=== PATIENT | female | born 1955 | race Hispanic/Latino ===

== ENCOUNTER 2018-10-20 21:11 | Inpatient (IN) | payer MEDICAID, MEDICARE, OTHER ==
[2018-10-20 21:38] LABS: BASO # 0.1 K/uL (0.0-0.2); BASO % 0.9 % (0.0-2.0); EOS % 0.3 % (0.0-4.0); HEMOGLOBIN 8.7 g/dL (11.0-16.0); LYMPH % 10.7 % (20.0-40.0); MEAN CELL VOLUME 81.3 fL (81.0-99.0); MEAN CORPUSCULAR HEMOGLOBIN 27.3 pg (27.0-31.0); MEAN CORPUSCULAR HGB CONC 33.6 g/dL (33.0-37.0); MEAN PLATELET VOLUME 6.5 fL (7.2-11.7); MONO # 1.1 K/uL (0.0-0.8); MONO % 10.9 % (0.0-10.0); NEUT # 7.5 K/uL (1.8-7.0); NEUT % 77.2 % (50.0-75.0); RBC 3.19 Mil/uL (3.80-5.20); RED CELL DISTRIBUTION WIDTH 17.4 % (11.5-14.5); WHITE BLOOD COUNT 9.7 K/uL (4.8-10.8)
[2018-10-20 21:51] LABS: ALB/GLOB RATIO 0.8 (1.0-2.1); ALBUMIN 3.6 g/dL (3.5-5.0); BLOOD UREA NITROGEN 13 mg/dL (7-17); CALCIUM 8.7 mg/dl (8.6-10.4); GFR NON-AFRICAN AMERICAN > 60
[2018-10-20 21:53] LABS: ALT/SGPT < 6 U/L (9-52); AST/SGOT 22 U/L (14-36)
[2018-10-20] MEDS ORDERED: Sodium Chloride 0.9% 1,000 ML IV SCH (22:15)
--- NOTE | 2018-10-20 23:55 | C.PDOC ---
History Of Present Illness 63 year old female is sent to the ED from her Longterm for evaluation. As per Longterm patient today was noted to have low sodium and chloride after having some blood drawn today. Patient currently states she feels thirsty. P atient denies fever, chills, nausea, vomit, diarrhea, rash, CP, SOB, weakness, numbness. Time Seen by Provider: 10/20/18 21:12 Chief Complaint (Nursing): Abnormal Labs History Per: Patient, Other History/Exam Limitations: no limitations Onset/Duration Of Symptoms: Hrs Current Symptoms Are (Timing): Still Present Recent travel outside of the [place]: No Additional History Per: Patient, Longterm Past Medical History Reviewed: Historical Data, Nursing Documentation, Vital Signs Vital Signs: Last Vital Signs Temp 98.3 F 10/20/18 21:19 Pulse 98 H 10/20/18 22:35 Resp 18 10/20/18 22:35 BP 119/61 10/20/18 22:35 Pulse Ox 99 10/20/18 22:35 - Medical History PMH: Anemia, HTN, Parkinson's Disease Surgical History: No Surg Hx Family History: States: Unknown Family Hx - Social History Hx Alcohol Use: Yes Hx Substance Use: No Review Of Systems Constitutional: Negative for: Fever, Chills Cardiovascular: Negative for: Chest Pain, Palpitations Respiratory: Negative for: Cough, Shortness of Breath Gastrointestinal: Negative for: Nausea, Vomiting, Abdominal Pain Skin: Negative for: Rash Neurological: Negative for: Weakness, Numbness Physical Exam - Physical Exam Appears: Non-toxic, No Acute Distress Skin: Normal Color, Warm, Dry Head: Atraumatic, Normacephalic Eye(s): bilateral: Normal Inspection Oral Mucosa: Dry (slightly dry) Neck: Normal ROM, Supple Chest: Symmetrical Cardiovascular: Rhythm Regular Respiratory: Normal Breath Sounds, No Rales, No Rhonchi, No Wheezing Gastrointestinal/Abdominal: Soft, No Tenderness, No Guarding, No Rebound Extremity: Normal ROM, No Tenderness, No Swelling Neurological/Psych: Oriented x3, Normal Speech, Normal Cognition Gait: Steady ED Course And Treatment - Laboratory Results Result Diagrams: 10/20/18 21:36 10/20/18 21:36 Lab Results: Total Bilirubin 0.4 mg/dL (0.2-1.3) 10/20/18 21:36 AST 22 U/L (14-36) 10/20/18 21:36 ALT < 6 U/L (9-52) L D 10/20/18 21:36 Alkaline Phosphatase 150 U/L (38-126) H D 10/20/18 21:36 Total Protein 7.9 g/dL (6.3-8.3) 10/20/18 21:36 Albumin 3.6 g/dL (3.5-5.0) 10/20/18 21:36 Globulin 4.4 gm/dL (2.2-3.9) H 10/20/18 21:36 Albumin/Globulin Ratio 0.8 (1.0-2.1) L 10/20/18 21:36 O2 Sat by Pulse Oximetry: 99 (ON RA) Pulse Ox Interpretation: Normal Medical Decision Making Medical Decision Making: Plan: * Labs * urine culture * IV fluids Disposition - Disposition Disposition: HOSPITALIZED Disposition Time: 22:10 Condition: STABLE - Clinical Impression Clinical Impression: Hyponatremia, Hypochloremia, Dehydration - Scribe Statement The provider has reviewed the documentation as recorded by the Scribe Ivan Covington All medical record entries made by the Scribe were at my direction and personally dictated by me. I have reviewed the chart and agree that the record accurately reflects my personal performance of the history, physical exam, medical decision making, and the department course for this patient. I have also personally directed, reviewed, and agree with the discharge instructions and disposition.
[2018-10-21] MEDS ORDERED: Magnesium Sulfate 1 gm in D5W 1 GM/100 ML BAG IVPB ONE ×2 (00:32→01:00)
[2018-10-21] MEDS: Sodium Chloride 0.9% 1,000 ML IV SCH ×3 (01:04→16:11)
[2018-10-21] MEDS ORDERED: Oxycodone/Acetaminophen 5/325 mg Tab PO PRN (01:04)
--- NOTE | 2018-10-21 01:24 | CP.PCM.HP ---
<Brigida Bennett - Last Filed: 10/21/18 01:20> History of Present Illness - History of Present Illness History of Present Illness: PGY-[address] Chicas's service CC: abnormal labs HPI: Patient is a 63 yo female w/ PMH of Parkinson's disease, mood disorder, DM2, HLD, and HTN sent from [facility] for hyponatremia on labs. Patient is in rehab for s/p knee fracture occuring on [facility] of last year. Patient offers no acute complaints and denies headaches, confusion, n/v. Patient states that her knee gets sore at time but is able to ambulate on flat floors and a couple of steps with her assistive device. Patient states that she has not had a colonosco py but has had her regular ORTHOPEDIC NURSE screening. Denies fevers, chills, chest pain, sob, n/v, constipation or diarrhea and dysuria. PMH- Parkinson's disease, mood disorder, DM2, HLD, and HTN PSH- Hysterectomy, knee fracture repair FH- Denies Allergies- Denies Meds- See MAR (same one as on orders) Social- Denies etoh, drug, and tobacco use; Retired; Lives at home with and daughter Code- Full code PMD- Dr. Ugarte Present on Admission - Present on Admission Any Indicators Present on Admission: Yes History of DVT/PE: No Decubitus Ulcer Present: Yes Decubitus Ulcer Location: sacrum Decubitus Ulcer Stage: II Review of Systems - Review of Systems Review of Systems: 12 point ROS obtained and noted as in HPI Past Patient History - Past Social History Smoking Status: Never Smoked - CARDIAC Hx Hypertension: Yes - NEUROLOGICAL Hx Parkinson's Disease: Yes - ENDOCRINE/METABOLIC Hx Endocrine Disorders: Yes Hx Diabetes Mellitus Type 2: Yes - HEMATOLOGICAL/ONCOLOGICAL Hx Anemia: Yes - PSYCHIATRIC Hx Substance Use: No - SURGICAL HISTORY Hx Surgeries: Yes Hx Orthopedic Surgery: Yes (right patella fracture) Meds Allergies/Adverse Reactions: Allergies Allergy/AdvReac Type Severity Reaction Status Date / Time No Known Allergies Allergy Unverified 10/20/18 21:30 Physical Exam - Constitutional Appears: Non-toxic, No Acute Distress - Head Exam Head Exam: NORMAL INSPECTION, NORMOCEPHALIC - Eye Exam Eye Exam: EOMI, Normal appearance. absent: Nystagmus, Scleral icterus - ENT Exam ENT Exam: Mucous Membranes Dry - Respiratory Exam Respiratory Exam: Clear to Auscultation Bilateral, NORMAL BREATHING PATTERN. absent: Rales, Rhonchi, Wheezes - Cardiovascular Exam Cardiovascular Exam: REGULAR RHYTHM, +S1, +S2. absent: Tachycardia - GI/Abdominal Exam GI & Abdominal Exam: Normal Bowel Sounds, Soft. absent: Diminished Bowel Sounds, Distended, Firm, Guarding, Tenderness - Extremities Exam Extremities exam: Positive for: normal inspection. Negative for: calf tenderness, pedal edema Additional comments: on left knee there is immobilzier with scar on medial part of knee clean incision, no erythema, blood or drainaged noted - Neurological Exam Neurological exam: Alert, Oriented x3 - Psychiatric Exam Psychiatric exam: Normal Affect, Normal Mood - Skin Skin Exam: Dry, Intact Results - Vital Signs Recent Vital Signs: Last Vital Signs Temp 98.3 F 10/20/18 21:19 Pulse 98 H 10/20/18 22:35 Resp 18 10/20/18 22:35 BP 119/61 10/20/18 22:35 Pulse Ox 99 10/21/18 00:14 - Labs Result Diagrams: 10/20/18 21:36 10/20/18 21:36 Labs: Laboratory Results - last 24 hr 10/20/18 10/20/18 10/20/18 21:36 21:36 22:00 WBC 9.7 RBC 3.19 L Hgb 8.7 L D Hct 25.9 L MCV 81.3 D MCH 27.3 MCHC 33.6 RDW 17.4 H Plt Count 552 H D MPV 6.5 L Neut % (Auto) 77.2 H Lymph % (Auto) 10.7 L Emanuel % (Auto) 10.9 H Eos % (Auto) 0.3 Baso % (Auto) 0.9 Neut # (Auto) 7.5 H Lymph # (Auto) 1.0 Emanuel # (Auto) 1.1 H Eos # (Auto) 0.0 Baso # (Auto) 0.1 Sodium 125 L Potassium 4.8 Chloride 87 L Carbon Dioxide 29 Anion Gap 14 BUN 13 Creatinine 0.4 L Est GFR ( Amer) > 60 Est GFR (Non-Af Amer) > 60 Random Glucose 228 H D Serum Osmolality Calcium 8.7 Phosphorus 3.2 Magnesium 1.4 L Total Bilirubin 0.4 AST 22 ALT < 6 L D Alkaline Phosphatase 150 H D Total Protein 7.9 Albumin 3.6 Globulin 4.4 H Albumin/Globulin Ratio 0.8 L TSH 3rd Generation Plasma Cortisol PM 13.6 10/20/18 10/20/18 22:00 22:32 WBC RBC Hgb Hct MCV MCH MCHC RDW Plt Count MPV Neut % (Auto) Lymph % (Auto) Emanuel % (Auto) Eos % (Auto) Baso % (Auto) Neut # (Auto) Lymph # (Auto) Emanuel # (Auto) Eos # (Auto) Baso # (Auto) Sodium Potassium Chloride Carbon Dioxide Anion Gap BUN Creatinine Est GFR ( Amer) Est GFR (Non-Af Amer) Random Glucose Serum Osmolality 272 Calcium Phosphorus Magnesium Total Bilirubin AST ALT Alkaline Phosphatase Total Protein Albumin Globulin Albumin/Globulin Ratio TSH 3rd Generation 1.53 Plasma Cortisol PM Assessment & Plan - Assessment and Plan (Free Text) Assessment: Patient is a 63 yo female w/ PMH Parkinson's disease, mood disorder, DM2, HLD, and HTN sent from [facility] for abnormal labs. Electrolyte Disturbances Hyponatremia- likely hypovolemic hyponatremia with component of hyperglycemia; urine studies pending; serum osm 277 NS @ 125mls/hr; Repeat CMP in AM; control sugars better likely 2/2 to diuretic drinks with fluid restriction at [facility] facility (coffee and juices) Hypomanesemia- 2 bags of Mag 1 gm in D5W; repeat mag in am Parkinson's disease Carbidopa/Levodopa 1 tab in am and .5 tab at 2pm Amantadine 100mg po bid Ropinirole 2mg po bid Oxycodone 1 tab po q12h prn Mood Disorder/BPD Depakote 125mg po bid Stage 2 sacral ulcer Clomitrazole cream Silver Sulfidazine DM2 Metformin 500mg po daily ISS sliding scale ACHS S/P knee fracture Tylenol PRN for pain knee immobilizer in place PT/OT HTN Amlodipine 10mg po daily HLD Rosuvastatin 5mg po HS PGY-1 Brigida Bennett Case D/W Dr. Chicas <Shahab Chicas P - Last Filed: 10/21/18 07:45> Results - Vital Signs Recent Vital Signs: Last Vital Signs Temp 98.3 F 10/20/18 23:45 Pulse 101 H 10/20/18 23:45 Resp 20 10/20/18 23:45 BP 110/67 10/20/18 23:45 Pulse Ox 99 10/21/18 00:14 - Labs Result Diagrams: 10/20/18 21:36 10/20/18 21:36 Labs: Laboratory Results - last 24 hr 10/20/18 10/20/18 10/20/18 21:36 21:36 22:00 WBC 9.7 RBC 3.19 L Hgb 8.7 L D Hct 25.9 L MCV 81.3 D MCH 27.3 MCHC 33.6 RDW 17.4 H Plt Count 552 H D MPV 6.5 L Neut % (Auto) 77.2 H Lymph % (Auto) 10.7 L Emanuel % (Auto) 10.9 H Eos % (Auto) 0.3 Baso % (Auto) 0.9 Neut # (Auto) 7.5 H Lymph # (Auto) 1.0 Emanuel # (Auto) 1.1 H Eos # (Auto) 0.0 Baso # (Auto) 0.1 Sodium 125 L Potassium 4.8 Chloride 87 L Carbon Dioxide 29 Anion Gap 14 BUN 13 Creatinine 0.4 L Est GFR ( Amer) > 60 Est GFR (Non-Af Amer) > 60 POC Glucose (mg/dL) Random Glucose 228 H D Serum Osmolality Calcium 8.7 Phosphorus 3.2 Magnesium 1.4 L Iron TIBC % Saturation Total Bilirubin 0.4 AST 22 ALT < 6 L D Alkaline Phosphatase 150 H D Total Protein 7.9 Albumin 3.6 Globulin 4.4 H Albumin/Globulin Ratio 0.8 L TSH 3rd Generation Plasma Cortisol PM 13.6 10/20/18 10/20/18 10/21/18 22:00 22:32 06:57 WBC RBC Hgb Hct MCV MCH MCHC RDW Plt Count MPV Neut % (Auto) Lymph % (Auto) Emanuel % (Auto) Eos % (Auto) Baso % (Auto) Neut # (Auto) Lymph # (Auto) Emanuel # (Auto) Eos # (Auto) Baso # (Auto) Sodium Potassium Chloride Carbon Dioxide Anion Gap BUN Creatinine Est GFR ( Amer) Est GFR (Non-Af Amer) POC Glucose (mg/dL) 126 H Random Glucose Serum Osmolality 272 Calcium Phosphorus Magnesium Iron TIBC % Saturation Total Bilirubin AST ALT Alkaline Phosphatase Total Protein Albumin Globulin Albumin/Globulin Ratio TSH 3rd Generation 1.53 Plasma Cortisol PM 10/21/18 07:02 WBC RBC Hgb Hct MCV MCH MCHC RDW Plt Count MPV Neut % (Auto) Lymph % (Auto) Emanuel % (Auto) Eos % (Auto) Baso % (Auto) Neut # (Auto) Lymph # (Auto) Emanuel # (Auto) Eos # (Auto) Baso # (Auto) Sodium Potassium Chloride Carbon Dioxide Anion Gap BUN Creatinine Est GFR ( Amer) Est GFR (Non-Af Amer) POC Glucose (mg/dL) Random Glucose Serum Osmolality Calcium Phosphorus Magnesium Iron 18 L TIBC 276 % Saturation 6 L Total Bilirubin AST ALT Alkaline Phosphatase Total Protein Albumin Globulin Albumin/Globulin Ratio TSH 3rd Generation Plasma Cortisol PM Attending/Attestation - Attestation I have personally seen and examined this patient.: Yes I have fully participated in the care of the patient.: Yes I have reviewed all pertinent clinical information: Yes Notes (Text): 10/21/18 07:41 * Clinically hypovolemic hyponatremia * Uncontrolled dm * Microcytic anemia with no history suggesting acute loss * H/o parkinson and essential tremors * H/o htn * Elevated globulin * Weight loss according to patient * left patellar fracture on immobilizer Plan ivf f/u serum sodium not allow rapid correction periodic urine sodium/osm as needed insulin sliding scale Stool for occult blood Iron tibc protein electrophoresis due to elevated globulin gi/dvt prophylaxis See orders for detail.
[2018-10-21] MEDS ORDERED: Glucagon Recombinant 1 mg Inj IM PRN (01:42)
[2018-10-21] MEDS ORDERED: Dextrose 50% SYRINGE Inj (50 ml) IV PRN (01:42)
[2018-10-21 07:20] LABS: IRON 18 ug/dL (37-170)
[2018-10-21 07:30] LABS: % IRON SATURATION 6 (20-55); TOTAL IRON BINDING CAPACITY 276 ug/dL (250-450)
[2018-10-21 08:15] LABS: BASO # 0.1 K/uL (0.0-0.2); BASO % 0.8 % (0.0-2.0); EOS # 0.1 K/uL (0.0-0.7); EOS % 0.8 % (0.0-4.0); HEMOGLOBIN 8.7 g/dL (11.0-16.0); LYMPH # 1.2 K/uL (1.0-4.3); MEAN CELL VOLUME 82.9 fL (81.0-99.0); MEAN CORPUSCULAR HEMOGLOBIN 27.9 pg (27.0-31.0); MEAN CORPUSCULAR HGB CONC 33.7 g/dL (33.0-37.0); MEAN PLATELET VOLUME 6.8 fL (7.2-11.7); MONO # 1.1 K/uL (0.0-0.8); MONO % 13.2 % (0.0-10.0); NEUT # 5.6 K/uL (1.8-7.0); NEUT % 70.2 % (50.0-75.0); RBC 3.11 Mil/uL (3.80-5.20); RED CELL DISTRIBUTION WIDTH 17.7 % (11.5-14.5)
[2018-10-21] MEDS: (Novolin R) Insulin Human Regular 100 units/ml vial SC SCH ×4 (08:15→22:30)
[2018-10-21 08:22] LABS: ALB/GLOB RATIO 0.8 (1.0-2.1); ALBUMIN 3.6 g/dL (3.5-5.0); ALT/SGPT < 6 U/L (9-52); AST/SGOT 26 U/L (14-36); BLOOD UREA NITROGEN 8 mg/dL (7-17); GFR NON-AFRICAN AMERICAN > 60
[2018-10-21] MEDS: Divalproex 125 mg Sprinkle Capsule PO SCH ×2 (10:26→18:40)
[2018-10-21] MEDS: Silver Sulfadiazine 1% Cream (20 gm) TOP SCH ×2 (11:04→18:40)
[2018-10-21] MEDS: Clotrimazole 1% Cream(30 gm) TOP SCH ×2 (11:04→18:40)
[2018-10-21] MEDS: LEVODOPA PO SCH (11:06)
[2018-10-21] MEDS: CARBIDOPA PO SCH (11:06)
[2018-10-21 14:35] LABS: BLOOD UREA NITROGEN 6 mg/dL (7-17); CALCIUM 8.9 mg/dl (8.6-10.4); GFR NON-AFRICAN AMERICAN > 60
[2018-10-21] MEDS ORDERED: Iohexol 240 (50 ml) PO ONE ×2 (18:00→18:30)
--- NOTE | 2018-10-21 18:15 | CP.PCM.PN ---
<Snehal Canales - Last Filed: 10/21/18 18:11> Subjective - Date & Time of Evaluation Date of Evaluation: 10/21/18 Time of Evaluation: 07:00 - Subjective Subjective: PGY2- Progress Note for Dr. Ugarte Patient seen and examined at bedside and in no acute distress. Patient at first is confused and does not know where she is, but then when told she is at [facility] she starts to remember her admission to the hospital. Patient admits to some soreness in her left leg, but otherwise has no complaints. Patient denies any headache, chest pain, abdominal pain, nausea, vomiting, constipation, or diarrhea. Patient's Rytary and Ropinorole are non formulary. Patient's came with her medications but did not have either of those prescriptions filled. Patient given a prescription to go get both filled. Patient was unable to get Rytary because it had been filled too recently. Patient and are unsure why they do not have the remaining pills left. Spoke with pharmacy and will give Carbidopa -Levodopa 50-200mg po daily as a replacement for the Rytary which is a similar dose 48.75- 195 Objective - Vital Signs/Intake and Output Vital Signs (last 24 hours): Temp Pulse Resp BP Pulse Ox 98.6 F 100 H 20 120/66 96 10/21/18 16:00 10/21/18 16:00 10/21/18 16:00 10/21/18 16:00 10/21/18 16:00 Intake and Output: 10/21/18 10/21/18 06:59 18:59 Intake Total 2467 Balance 2467 - Medications Medications: Current Medications Acetaminophen (Tylenol 325mg Tab) 650 mg PO Q4H PRN PRN Reason: Pain, Mild (1-3) Amantadine HCl (Amantadine 100 Mg Cap) 100 mg PO BID [facility] Last Admin: 10/21/18 11:03 Dose: 100 mg Amlodipine Besylate (Norvasc) 5 mg PO DAILY [facility] Last Admin: 10/21/18 10:25 Dose: 5 mg Carbidopa/Levodopa (Sinemet) 1 tab PO BID [facility] Last Admin: 10/21/18 10:24 Dose: 1 tab Carbidopa/Levodopa (Sinemet) 1 tab PO DAILY@1200 [facility] Last Admin: 10/21/18 14:14 Dose: 1 tab Carbidopa/Levodopa (Sinemet) 1 tab PO QNOON [facility] Last Admin: 10/21/18 11:06 Dose: 1 tab Clotrimazole (Lotrimin 1%) 0 gm TOP BID [facility] Last Admin: 10/21/18 11:04 Dose: 1 applic Dextrose (Dextrose 50% Inj) 0 ml IV STAT PRN; Protocol PRN Reason: Hypoglycemia Protocol Dextrose (Glutose 15) 0 gm PO ONCE PRN; Protocol PRN Reason: Hypoglycemia Protocol Divalproex Sodium (Depakote Sprinkles) 125 mg PO BID [facility] Last Admin: 10/21/18 10:26 Dose: 125 mg Glucagon (Glucagen Diagnostic Kit) 0 mg IM STAT PRN; Protocol PRN Reason: Hypoglycemia Protocol Heparin Sodium (Porcine) (Heparin) 5,000 units SC Q12 [facility] Last Admin: 10/21/18 10:26 Dose: 5,000 units Home Med (Carbidopa/Levodopa [Rytary Er 48.75 Mg-195 Mg Cap]) 1 each PO DAILY [facility] Home Med (Patient's Own Medication) 1 tab PO BID [facility] Sodium Chloride (Sodium Chloride 0.9%) 1,000 mls @ 125 mls/hr IV .Q8H [facility] Last Admin: 10/21/18 09:48 Dose: Not Given Dextrose (Dextrose 5% In Water 1000 Ml) 1,000 mls @ 0 mls/hr IV .Q0M PRN; Protocol PRN Reason: Hypoglycemia Protocol Insulin Human Regular (Novolin R) 0 unit SC ACHS [facility]; Protocol Last Admin: 10/21/18 16:56 Dose: Not Given Metformin HCl (Glucophage) 500 mg PO DAILY [facility] Last Admin: 10/21/18 10:26 Dose: 500 mg Oxycodone/Acetaminophen (Percocet 5/325 Mg Tab) 1 tab PO Q12H PRN PRN Reason: Pain, moderate (4-7) Stop: 10/24/18 01:05 Rosuvastatin Calcium (Crestor) 5 mg PO HS [facility] Silver Sulfadiazine (Silvadene 1% 20 Gm) 0 ea TOP BID [facility] Last Admin: 10/21/18 11:04 Dose: 1 applic - Labs Labs: 10/21/18 08:11 10/21/18 14:13 - Additional Findings Additional findings: - Constitutional Appears: Non-toxic, No Acute Distress - Head Exam Head Exam: NORMAL INSPECTION, NORMOCEPHALIC - Eye Exam Eye Exam: EOMI, Normal appearance. absent: Nystagmus, Scleral icterus - ENT Exam ENT Exam: Mucous Membranes Dry - Respiratory Exam Respiratory Exam: Clear to Auscultation Bilateral, NORMAL BREATHING PATTERN. absent: Rales, Rhonchi, Wheezes - Cardiovascular Exam Cardiovascular Exam: REGULAR RHYTHM, +S1, +S2. absent: Tachycardia - GI/Abdominal Exam GI & Abdominal Exam: Normal Bowel Sounds, Soft. absent: Diminished Bowel Sounds, Distended, Firm, Guarding, Tenderness - Extremities Exam Extremities exam: Positive for: normal inspection. Negative for: calf tenderness, pedal edema Additional comments: on left knee there is immobilzier with scar on medial part of knee clean incision, no erythema, blood or drainaged noted - Neurological Exam Neurological exam: Alert, Oriented x3, resting tremor b/l, tardive dyskinesia - Psychiatric Exam Psychiatric exam: Flat affect, Normal Mood - Skin Skin Exam: Dry, Intact Assessment and Plan - Assessment and Plan (Free Text) Assessment: Patient is a 63 yo female w/ PMH Parkinson's disease, mood disorder, DM2, HLD, and HTN sent from [facility] for abnormal labs. Electrolyte Disturbances Hyponatremia- likely hypovolemic hyponatremia with component of hyperglycemia; urine studies pending; serum osm 277 Repeat CMP in AM increased to 127 from 125 Hypomagnesemia- 2 bags of Mag 1 gm in D5W; repeat mag in am Nephro consulted, Dr. Nunez, help appreciated f/u urine osm, urine sodium with weight loss, r/o malignancy -- f/u CT head without contrast, CT chest, abd, pelvis with po and iv contrast meds: * NS @ 125mls/hr Parkinson's disease * Carbidopa/Levodopa 25-100mg 1 tab at 10am, 1.5 tabs at 12pm and 1 tab at 6 pm * Rytary NF, Carbidopa/Levodopa 50-200mg 1 tab po daily at 8am * Amantadine 100mg po bid * Ropinirole 2mg po daily Mood Disorder/BPD * Depakote 125mg po bid Stage 2 sacral ulcer * Clomitrazole cream * Silver Sulfidazine DM2 accuchecks achs * Metformin 500mg po daily * ISS sliding scale * Hypoglycemia protocol S/P L knee fracture * Tylenol PRN for pain * Oxycodone 1 tab po q12h prn knee immobilizer in place PT/OT HTN * Amlodipine 10mg po daily Prophylaxis SCDs no GI prophylaxis indicated Discussed with Dr. Ugarte <Jose Armando Ugarte - Last Filed: 10/22/18 22:33> Objective - Vital Signs/Intake and Output Vital Signs (last 24 hours): Temp Pulse Resp BP Pulse Ox 97.6 F 100 H 20 118/69 98 10/22/18 16:32 10/22/18 16:32 10/22/18 16:32 10/22/18 16:32 10/22/18 16:32 Intake and Output: 10/22/18 10/23/18 18:59 06:59 Intake Total 1760 Balance 1760 - Medications Medications: Current Medications Acetaminophen (Tylenol 325mg Tab) 650 mg PO Q4H PRN PRN Reason: Pain, Mild (1-3) Amantadine HCl (Amantadine 100 Mg Cap) 100 mg PO BID [facility] Last Admin: 10/22/18 18:27 Dose: 100 mg Amlodipine Besylate (Norvasc) 2.5 mg PO DAILY [facility] Last Admin: 10/22/18 10:27 Dose: 2.5 mg Carbidopa/Levodopa (Sinemet) 1 tab PO BID [facility] Last Admin: 10/22/18 18:27 Dose: 1 tab Carbidopa/Levodopa (Sinemet) 1 tab PO DAILY@1200 [facility] Last Admin: 10/22/18 14:14 Dose: 1 tab Carbidopa/Levodopa (Sinemet) 1 tab PO QNOON [facility] Last Admin: 10/22/18 12:03 Dose: 1 tab Carbidopa/Levodopa (Sinemet Cr) 2 tab PO 0800 [facility] Clotrimazole (Lotrimin 1%) 0 gm TOP BID [facility] Last Admin: 10/22/18 18:28 Dose: 1 applic Dextrose (Dextrose 50% Inj) 0 ml IV STAT PRN; Protocol PRN Reason: Hypoglycemia Protocol Dextrose (Glutose 15) 0 gm PO ONCE PRN; Protocol PRN Reason: Hypoglycemia Protocol Divalproex Sodium (Depakote Sprinkles) 125 mg PO BID [facility] Last Admin: 10/22/18 18:27 Dose: 125 mg Docusate Sodium (Colace) 100 mg PO TID [facility] Last Admin: 10/22/18 18:27 Dose: 100 mg Ferrous Sulfate (Feosol) 325 mg PO DAILY [facility] Glucagon (Glucagen Diagnostic Kit) 0 mg IM STAT PRN; Protocol PRN Reason: Hypoglycemia Protocol Heparin Sodium (Porcine) (Heparin) 5,000 units SC Q12 [facility] Last Admin: 10/22/18 10:27 Dose: 5,000 units Home Med (Patient's Own Medication) 1 tab PO DAILY [facility] Last Admin: 10/22/18 10:28 Dose: 1 tab Dextrose (Dextrose 5% In Water 1000 Ml) 1,000 mls @ 0 mls/hr IV .Q0M PRN; Protocol PRN Reason: Hypoglycemia Protocol Insulin Human Regular (Novolin R) 0 unit SC ACHS [facility]; Protocol Last Admin: 10/22/18 18:53 Dose: Not Given Metformin HCl (Glucophage) 500 mg PO DAILY [facility] Last Admin: 10/22/18 10:27 Dose: 500 mg Oxycodone/Acetaminophen (Percocet 5/325 Mg Tab) 1 tab PO Q12H PRN PRN Reason: Pain, moderate (4-7) Stop: 10/24/18 01:05 Pantoprazole Sodium (Protonix Ec Tab) 40 mg PO DAILY [facility] Permethrin (Nix Complete Lice Elimination Kit 1%) 59 ml TOP ONCE ONE Stop: 10/29/18 08:01 Rosuvastatin Calcium (Crestor) 5 mg PO HS [facility] Last Admin: 10/21/18 22:23 Dose: 5 mg Silver Sulfadiazine (Silvadene 1% 20 Gm) 0 ea TOP BID [facility] Last Admin: 10/22/18 18:28 Dose: 1 applic - Labs Labs: 10/22/18 07:19 10/22/18 22:05 Attending/Attestation - Attestation I have personally seen and examined this patient.: Yes I have fully participated in the care of the patient.: Yes I have reviewed all pertinent clinical information, including history, physical exam and plan: Yes Notes (Text): 10/22/18 22:32 This is a late entry. Care of this patient was gone over in detail with resident Dr. Canales. Jose Armando Ugarte D.O.
[2018-10-21 18:42] LABS: OSMOLALITY,URINE 230 mosm/kg (300-1000)
[2018-10-21] MEDS ORDERED: Tolvaptan 15 MG TAB PO ONE (18:59)
[2018-10-21] MEDS ORDERED: Iodixanol 320 mg/ml 150 ml Bottle IV ONE (19:24)
[2018-10-21 19:57] LABS: BLOOD UREA NITROGEN 5 mg/dL (7-17); CALCIUM 8.8 mg/dl (8.6-10.4); GFR NON-AFRICAN AMERICAN > 60
[2018-10-22] MEDS: Sodium Chloride 0.9% 1,000 ML IV SCH (01:21)
--- NOTE | 2018-10-22 06:31 | CP.PCM.HP ---
History of Present Illness - History of Present Illness History of Present Illness: 63 yo F w/ pmh of htn, dm, hyperlipidemia, and Parkinson's disease, sent to ED for evaluation of persistent hyponatremia; nephrology being consulted for the same; Patient reports falling and suffering knee fracture about 6 weeks ago; she subsequently had surgical repair and was discharged to rehab center; she reports that since the past few weeks she has been kept on PO fluid restriction due to the hyponatremia; she otherwise has been walking using a walker; has some pain in affected knee for which she is only using Tylenol (denies any NSAID use); reports fair appetite and has been able to consume the diet given to her; she denies any nausea/vomiting or diarrhea; patient does report ~80 lb weight loss over the past one and a half years but denies any fevers or night sweats; Past Patient History - Past Social History Smoking Status: Never Smoked - CARDIAC Hx Hypertension: Yes - NEUROLOGICAL Hx Parkinson's Disease: Yes - ENDOCRINE/METABOLIC Hx Endocrine Disorders: Yes Hx Diabetes Mellitus Type 2: Yes - HEMATOLOGICAL/ONCOLOGICAL Hx Anemia: Yes - MUSCULOSKELETAL/RHEUMATOLOGICAL Hx Falls: Yes - PSYCHIATRIC Hx Substance Use: No - SURGICAL HISTORY Hx Surgeries: Yes Hx Orthopedic Surgery: Yes (right patella fracture) - ANESTHESIA Hx Anesthesia Reactions: Yes Hx Malignant Hyperthermia: No Meds Allergies/Adverse Reactions: Allergies Allergy/AdvReac Type Severity Reaction Status Date / Time No Known Allergies Allergy Unverified 10/20/18 21:30 Results - Vital Signs Recent Vital Signs: Last Vital Signs Temp 97.9 F 10/22/18 00:00 Pulse 91 H 10/22/18 00:00 Resp 20 10/22/18 00:00 BP 110/68 10/22/18 00:00 Pulse Ox 96 10/22/18 00:00 - Labs Result Diagrams: 10/21/18 08:11 10/21/18 19:39 Labs: Laboratory Results - last 24 hr 10/21/18 10/21/18 10/21/18 06:57 07:02 07:02 WBC RBC Hgb Hct MCV MCH MCHC RDW Plt Count MPV Neut % (Auto) Lymph % (Auto) [place] % (Auto) Eos % (Auto) Baso % (Auto) Neut # (Auto) Lymph # (Auto) [place] # (Auto) Eos # (Auto) Baso # (Auto) Sodium 127 L Potassium 4.6 Chloride 90 L Carbon Dioxide 29 Anion Gap 13 BUN 8 Creatinine 0.4 L Est GFR ( Amer) > 60 Est GFR (Non-Af Amer) > 60 POC Glucose (mg/dL) 126 H Random Glucose 128 H D Calcium 9.0 Phosphorus 3.7 Magnesium 2.2 Iron 18 L TIBC 276 % Saturation 6 L Ferritin 511.0 Total Bilirubin 0.3 AST 26 ALT < 6 L Alkaline Phosphatase 174 H Total Protein 7.9 Total Protein (PEP) Albumin 3.6 Globulin 4.4 H Albumin/Globulin Ratio 0.8 L Urine Osmolality Ur Random Sodium 10/21/18 10/21/18 10/21/18 07:02 08:11 11:24 WBC 8.0 RBC 3.11 L Hgb 8.7 L Hct 25.7 L MCV 82.9 MCH 27.9 MCHC 33.7 RDW 17.7 H Plt Count 592 H MPV 6.8 L Neut % (Auto) 70.2 Lymph % (Auto) 15.0 L [place] % (Auto) 13.2 H Eos % (Auto) 0.8 Baso % (Auto) 0.8 Neut # (Auto) 5.6 Lymph # (Auto) 1.2 [place] # (Auto) 1.1 H Eos # (Auto) 0.1 Baso # (Auto) 0.1 Sodium Potassium Chloride Carbon Dioxide Anion Gap BUN Creatinine Est GFR ( Amer) Est GFR (Non-Af Amer) POC Glucose (mg/dL) 140 H Random Glucose Calcium Phosphorus Magnesium Iron TIBC % Saturation Ferritin Total Bilirubin AST ALT Alkaline Phosphatase Total Protein Total Protein (PEP) 7.2 Albumin Globulin Albumin/Globulin Ratio Urine Osmolality Ur Random Sodium 10/21/18 10/21/18 10/21/18 14:13 16:45 18:34 WBC RBC Hgb Hct MCV MCH MCHC RDW Plt Count MPV Neut % (Auto) Lymph % (Auto) [place] % (Auto) Eos % (Auto) Baso % (Auto) Neut # (Auto) Lymph # (Auto) [place] # (Auto) Eos # (Auto) Baso # (Auto) Sodium 126 L Potassium 4.2 Chloride 90 L Carbon Dioxide 29 Anion Gap 12 BUN 6 L Creatinine 0.4 L Est GFR ( Amer) > 60 Est GFR (Non-Af Amer) > 60 POC Glucose (mg/dL) 92 Random Glucose 101 D Calcium 8.9 Phosphorus Magnesium Iron TIBC % Saturation Ferritin Total Bilirubin AST ALT Alkaline Phosphatase Total Protein Total Protein (PEP) Albumin Globulin Albumin/Globulin Ratio Urine Osmolality 230 L Ur Random Sodium 56 10/21/18 10/21/18 10/22/18 19:39 21:12 05:01 WBC RBC Hgb Hct MCV MCH MCHC RDW Plt Count MPV Neut % (Auto) Lymph % (Auto) [place] % (Auto) Eos % (Auto) Baso % (Auto) Neut # (Auto) Lymph # (Auto) [place] # (Auto) Eos # (Auto) Baso # (Auto) Sodium 125 L Potassium 4.4 Chloride 87 L Carbon Dioxide 31 H Anion Gap 12 BUN 5 L Creatinine 0.4 L Est GFR ( Amer) > 60 Est GFR (Non-Af Amer) > 60 POC Glucose (mg/dL) 89 86 Random Glucose 103 Calcium 8.8 Phosphorus 3.6 Magnesium 1.6 Iron TIBC % Saturation Ferritin Total Bilirubin AST ALT Alkaline Phosphatase Total Protein Total Protein (PEP) Albumin Globulin Albumin/Globulin Ratio Urine Osmolality Ur Random Sodium
--- NOTE | 2018-10-22 06:34 | CP.PCM.CON ---
History of Present Illness - History of Present Illness History of Present Illness: 63 yo F w/ pmh of htn, dm, hyperlipidemia, and Parkinson's disease, sent to ED for evaluation of persistent hyponatremia; nephrology being consulted for the same; Patient reports falling and suffering knee fracture about 6 weeks ago; she subsequently had surgical repair and was discharged to rehab center; she reports that since the past few weeks she has been kept on PO fluid restriction due to the hyponatremia; she otherwise has been walking using a walker; has some pain in affected knee for which she is only using Tylenol (denies any NSAID use); reports fair appetite and has been able to consume the diet given to her; she denies any nausea/vomiting or diarrhea; patient does report ~80 lb weight loss over the past one and a half years but denies any fevers or night sweats; Review of Systems - Constitutional Constitutional: As Per HPI - EENT Nose/Mouth/Throat: absent: Dysphagia - Cardiovascular Cardiovascular: absent: Chest Pain, Palpitations - Respiratory Respiratory: absent: Dyspnea - Gastrointestinal Gastrointestinal: As Per HPI - Genitourinary Genitourinary: absent: Dysuria, Urinary Frequency - Musculoskeletal Musculoskeletal: As Per HPI. absent: Back Pain - Neurological Neurological: absent: Dizziness Additional comments: parkinsons disease on meds; Past Patient History - Past Medical History & Family History Past Medical History?: Yes Pertinent Family History: Father - lung Ca Mother - Breast Ca - Past Social History Smoking Status: Never Smoked - CARDIAC Hx Hypertension: Yes - NEUROLOGICAL Hx Parkinson's Disease: Yes - ENDOCRINE/METABOLIC Hx Endocrine Disorders: Yes Hx Diabetes Mellitus Type 2: Yes - HEMATOLOGICAL/ONCOLOGICAL Hx Anemia: Yes - MUSCULOSKELETAL/RHEUMATOLOGICAL Hx Falls: Yes - PSYCHIATRIC Hx Substance Use: No - SURGICAL HISTORY Hx Surgeries: Yes Hx Orthopedic Surgery: Yes (right patella fracture) - ANESTHESIA Hx Anesthesia Reactions: Yes Hx Malignant Hyperthermia: No Meds Allergies/Adverse Reactions: Allergies Allergy/AdvReac Type Severity Reaction Status Date / Time No Known Allergies Allergy Unverified 10/20/18 21:30 - Medications Medications: Current Medications Acetaminophen (Tylenol 325mg Tab) 650 mg PO Q4H PRN PRN Reason: Pain, Mild (1-3) Amantadine HCl (Amantadine 100 Mg Cap) 100 mg PO BID [facility] Last Admin: 10/21/18 18:39 Dose: 100 mg Amlodipine Besylate (Norvasc) 5 mg PO DAILY [facility] Last Admin: 10/21/18 10:25 Dose: 5 mg Carbidopa/Levodopa (Sinemet Cr) 1 tab PO 0800 [facility] Carbidopa/Levodopa (Sinemet) 1 tab PO BID [facility] Last Admin: 10/21/18 18:39 Dose: 1 tab Carbidopa/Levodopa (Sinemet) 1 tab PO DAILY@1200 [facility] Last Admin: 10/21/18 14:14 Dose: 1 tab Carbidopa/Levodopa (Sinemet) 1 tab PO QNOON [facility] Last Admin: 10/21/18 11:06 Dose: 1 tab Clotrimazole (Lotrimin 1%) 0 gm TOP BID [facility] Last Admin: 10/21/18 18:40 Dose: 1 applic Dextrose (Dextrose 50% Inj) 0 ml IV STAT PRN; Protocol PRN Reason: Hypoglycemia Protocol Dextrose (Glutose 15) 0 gm PO ONCE PRN; Protocol PRN Reason: Hypoglycemia Protocol Divalproex Sodium (Depakote Sprinkles) 125 mg PO BID [facility] Last Admin: 10/21/18 18:40 Dose: 125 mg Glucagon (Glucagen Diagnostic Kit) 0 mg IM STAT PRN; Protocol PRN Reason: Hypoglycemia Protocol Heparin Sodium (Porcine) (Heparin) 5,000 units SC Q12 [facility] Last Admin: 10/21/18 22:23 Dose: 5,000 units Home Med (Patient's Own Medication) 1 tab PO DAILY [facility] Dextrose (Dextrose 5% In Water 1000 Ml) 1,000 mls @ 0 mls/hr IV .Q0M PRN; Protocol PRN Reason: Hypoglycemia Protocol Insulin Human Regular (Novolin R) 0 unit SC ACHS [facility]; Protocol Last Admin: 10/21/18 22:30 Dose: Not Given Metformin HCl (Glucophage) 500 mg PO DAILY [facility] Last Admin: 10/21/18 10:26 Dose: 500 mg Oxycodone/Acetaminophen (Percocet 5/325 Mg Tab) 1 tab PO Q12H PRN PRN Reason: Pain, moderate (4-7) Stop: 10/24/18 01:05 Rosuvastatin Calcium (Crestor) 5 mg PO HS [facility] Last Admin: 10/21/18 22:23 Dose: 5 mg Silver Sulfadiazine (Silvadene 1% 20 Gm) 0 ea TOP BID [facility] Last Admin: 10/21/18 18:40 Dose: 1 applic Physical Exam - Constitutional Appears: Non-toxic, No Acute Distress, Cachectic - Eye Exam Eye Exam: Normal appearance. absent: Scleral icterus - ENT Exam ENT Exam: Mucous Membranes Moist - Neck Exam Neck exam: Negative for: Lymphadenopathy - Respiratory Exam Respiratory Exam: Clear to Auscultation Bilateral. absent: Respiratory Distress - Cardiovascular Exam Cardiovascular Exam: RRR, +S1, +S2 - GI/Abdominal Exam GI & Abdominal Exam: Soft. absent: Distended, Tenderness - Exam Exam: absent: Bladder Distension - Extremities Exam Additional comments: no leg edema; - Neurological Exam Neurological exam: Alert, Oriented x3 Additional comments: spontaneous eye movements - Psychiatric Exam Psychiatric exam: Normal Affect, Normal Mood - Skin Skin Exam: Normal Color, Warm Results - Vital Signs Recent Vital Signs: Last Vital Signs Temp 97.9 F 10/22/18 00:00 Pulse 91 H 10/22/18 00:00 Resp 20 10/22/18 00:00 BP 110/68 10/22/18 00:00 Pulse Ox 96 10/22/18 00:00 - Labs Result Diagrams: 10/21/18 08:11 10/21/18 19:39 Labs: Laboratory Results - last 24 hr 10/21/18 10/21/18 10/21/18 06:57 07:02 07:02 WBC RBC Hgb Hct MCV MCH MCHC RDW Plt Count MPV Neut % (Auto) Lymph % (Auto) [place] % (Auto) Eos % (Auto) Baso % (Auto) Neut # (Auto) Lymph # (Auto) [place] # (Auto) Eos # (Auto) Baso # (Auto) Sodium 127 L Potassium 4.6 Chloride 90 L Carbon Dioxide 29 Anion Gap 13 BUN 8 Creatinine 0.4 L Est GFR ( Amer) > 60 Est GFR (Non-Af Amer) > 60 POC Glucose (mg/dL) 126 H Random Glucose 128 H D Calcium 9.0 Phosphorus 3.7 Magnesium 2.2 Iron 18 L TIBC 276 % Saturation 6 L Ferritin 511.0 Total Bilirubin 0.3 AST 26 ALT < 6 L Alkaline Phosphatase 174 H Total Protein 7.9 Total Protein (PEP) Albumin 3.6 Globulin 4.4 H Albumin/Globulin Ratio 0.8 L Urine Osmolality Ur Random Sodium 10/21/18 10/21/18 10/21/18 07:02 08:11 11:24 WBC 8.0 RBC 3.11 L Hgb 8.7 L Hct 25.7 L MCV 82.9 MCH 27.9 MCHC 33.7 RDW 17.7 H Plt Count 592 H MPV 6.8 L Neut % (Auto) 70.2 Lymph % (Auto) 15.0 L [place] % (Auto) 13.2 H Eos % (Auto) 0.8 Baso % (Auto) 0.8 Neut # (Auto) 5.6 Lymph # (Auto) 1.2 [place] # (Auto) 1.1 H Eos # (Auto) 0.1 Baso # (Auto) 0.1 Sodium Potassium Chloride Carbon Dioxide Anion Gap BUN Creatinine Est GFR ( Amer) Est GFR (Non-Af Amer) POC Glucose (mg/dL) 140 H Random Glucose Calcium Phosphorus Magnesium Iron TIBC % Saturation Ferritin Total Bilirubin AST ALT Alkaline Phosphatase Total Protein Total Protein (PEP) 7.2 Albumin Globulin Albumin/Globulin Ratio Urine Osmolality Ur Random Sodium 10/21/18 10/21/18 10/21/18 14:13 16:45 18:34 WBC RBC Hgb Hct MCV MCH MCHC RDW Plt Count MPV Neut % (Auto) Lymph % (Auto) [place] % (Auto) Eos % (Auto) Baso % (Auto) Neut # (Auto) Lymph # (Auto) [place] # (Auto) Eos # (Auto) Baso # (Auto) Sodium 126 L Potassium 4.2 Chloride 90 L Carbon Dioxide 29 Anion Gap 12 BUN 6 L Creatinine 0.4 L Est GFR ( Amer) > 60 Est GFR (Non-Af Amer) > 60 POC Glucose (mg/dL) 92 Random Glucose 101 D Calcium 8.9 Phosphorus Magnesium Iron TIBC % Saturation Ferritin Total Bilirubin AST ALT Alkaline Phosphatase Total Protein Total Protein (PEP) Albumin Globulin Albumin/Globulin Ratio Urine Osmolality 230 L Ur Random Sodium 56 10/21/18 10/21/18 10/22/18 19:39 21:12 05:01 WBC RBC Hgb Hct MCV MCH MCHC RDW Plt Count MPV Neut % (Auto) Lymph % (Auto) [place] % (Auto) Eos % (Auto) Baso % (Auto) Neut # (Auto) Lymph # (Auto) [place] # (Auto) Eos # (Auto) Baso # (Auto) Sodium 125 L Potassium 4.4 Chloride 87 L Carbon Dioxide 31 H Anion Gap 12 BUN 5 L Creatinine 0.4 L Est GFR ( Amer) > 60 Est GFR (Non-Af Amer) > 60 POC Glucose (mg/dL) 89 86 Random Glucose 103 Calcium 8.8 Phosphorus 3.6 Magnesium 1.6 Iron TIBC % Saturation Ferritin Total Bilirubin AST ALT Alkaline Phosphatase Total Protein Total Protein (PEP) Albumin Globulin Albumin/Globulin Ratio Urine Osmolality Ur Random Sodium Assessment & Plan (1) Hyponatremia Assessment and Plan: Does not appear to be secondray to intravascular volume depletion or inadequate solute intake as she has been given adequate intravascular volume replenishment since presentation but without any improvement in hyponatremia; urine osm obtained this evening still inappropriately elevated for hyponatremia (ie. 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; furthermore, given profound self-reported weight loss, should have imaging to look for possible malignancy (also has significant family history); -d/c IVF; -giving single dose of tolvaptan 15 mg this evening; will re-dose tomorrow as needed; -should adhere to moderate PO fluid restriction (<1500 cc/day); if we are able to get her tolvaptan on a regular basis, fluid restriction can be relaxed; -avoid NSAIDS for pain (can potentiate the effect of ADH); -ensure adequate pain control; Status: Acute (2) HTN (hypertension) Assessment and Plan: BP tightly controlled on amlodipine 5 mg alone; will recommend to decrease to 2.5 mg to avoid any orthostatic changes; Status: Chronic
[2018-10-22 07:33] LABS: BASO # 0.1 K/uL (0.0-0.2); BASO % 1.6 % (0.0-2.0); EOS # 0.1 K/uL (0.0-0.7); HEMOGLOBIN 9.5 g/dL (11.0-16.0); LYMPH # 1.4 K/uL (1.0-4.3); LYMPH % 23.9 % (20.0-40.0); MEAN CELL VOLUME 82.9 fL (81.0-99.0); MEAN CORPUSCULAR HEMOGLOBIN 27.1 pg (27.0-31.0); MEAN CORPUSCULAR HGB CONC 32.6 g/dL (33.0-37.0); MEAN PLATELET VOLUME 6.8 fL (7.2-11.7); MONO % 15.8 % (0.0-10.0); NEUT # 3.5 K/uL (1.8-7.0); NEUT % 57.7 % (50.0-75.0); NRBC % 0.1 % (0.0-2.0); RBC 3.52 Mil/uL (3.80-5.20); RED CELL DISTRIBUTION WIDTH 17.4 % (11.5-14.5)
[2018-10-22 07:55] LABS: ALB/GLOB RATIO 0.8 (1.0-2.1); ALBUMIN 3.5 g/dL (3.5-5.0); ALT/SGPT < 6 U/L (9-52); AST/SGOT 15 U/L (14-36); BLOOD UREA NITROGEN 4 mg/dL (7-17); CALCIUM 9.2 mg/dl (8.6-10.4); GFR NON-AFRICAN AMERICAN > 60
[2018-10-22] MEDS ORDERED: Carbidopa/Levodopa 25/100 CR PO ONE (08:00)
[2018-10-22] MEDS ORDERED: Carbidopa/Levodopa 50/200 CR PO SCH (08:00)
[2018-10-22] MEDS: (Novolin R) Insulin Human Regular 100 units/ml vial SC SCH ×4 (08:14→22:42)
--- NOTE | 2018-10-22 10:00 | CT ---
Date of service: 10/21/2018 PROCEDURE: CT HEAD WITHOUT CONTRAST. HISTORY: Hyponatremia. Weight Loss. Hx Parkinson's Disease COMPARISON: None available. TECHNIQUE: Axial computed tomography images were obtained through the head/brain without intravenous contrast. Radiation dose: Total exam DLP = 1176.26 mGy-cm. This CT exam was performed using one or more of the following dose reduction techniques: Automated exposure control, adjustment of the mA and/or kV according to patient size, and/or use of iterative reconstruction technique. FINDINGS: HEMORRHAGE: No intracranial hemorrhage. BRAIN: Good corticomedullary differentiation is seen. Proportional, diffuse expansion of the ventriculosulcal and cisternal spaces is appreciated with white matter lucency compatible with diffuse cerebral atrophy and chronic microangiopathy. No suspicious extra-axial fluid collection is identified and the midline brain anatomy appears grossly nonfocal as imaged. There is no mass effect throughout. Further, right frontal neural stimulator is appreciated in this patient with history of Parkinson's disease by right frontal abdirashid hole terminating at the right basal ganglia. Dense calcifications of the fossa identified. Posterior fossa contents unremarkable. No suspicious midline findings. VENTRICLES: Unremarkable. No hydrocephalus. CALVARIUM: Unremarkable. PARANASAL SINUSES: Unremarkable as visualized. No significant inflammatory changes. MASTOID AIR CELLS: Unremarkable as visualized. No inflammatory changes. OTHER FINDINGS: None. IMPRESSION: Age-related degenerative change are identified as well as neural stimulator the right basal ganglia as discussed above. No intracranial hemorrhage, mass effect or cortical edema pattern identified. Follow-up CT is available if clinically warranted. Concordant preliminary report from [place], 10/21/2018, 8:51 p.m..
[2018-10-22] MEDS: ROPINIROLE 2 MG PO SCH (10:28)
[2018-10-22] MEDS: Clotrimazole 1% Cream(30 gm) TOP SCH ×2 (10:28→18:28)
[2018-10-22] MEDS: Silver Sulfadiazine 1% Cream (20 gm) TOP SCH ×2 (10:28→18:28)
[2018-10-22] MEDS: Divalproex 125 mg Sprinkle Capsule PO SCH ×2 (10:30→18:27)
[2018-10-22] MEDS: LEVODOPA PO SCH (12:03)
[2018-10-22] MEDS: CARBIDOPA PO SCH (12:03)
--- NOTE | 2018-10-22 15:21 | CP.PCM.PN ---
<Snehal Canales - Last Filed: 10/22/18 19:13> Subjective - Date & Time of Evaluation Date of Evaluation: 10/22/18 Time of Evaluation: 15:00 - Subjective Subjective: PGY2- Progress Note for Dr. Ugarte Patient seen and examined at bedside and in no acute distress. Patient admits to some itching of her scalp which started yesterday. Patient has no complaints. Patient denies chest pain, shortness of breath, abdominal pain, nausea, vomiting, constipation, or diarrhea. Objective - Vital Signs/Intake and Output Vital Signs (last 24 hours): Temp Pulse Resp BP Pulse Ox 97.8 F 100 H 20 117/63 95 10/22/18 07:00 10/22/18 11:00 10/22/18 07:00 10/22/18 07:00 10/22/18 11:00 Intake and Output: 10/22/18 10/22/18 06:59 18:59 Intake Total 1260 Balance 1260 - Medications Medications: Current Medications Acetaminophen (Tylenol 325mg Tab) 650 mg PO Q4H PRN PRN Reason: Pain, Mild (1-3) Amantadine HCl (Amantadine 100 Mg Cap) 100 mg PO BID [facility] Last Admin: 10/22/18 10:29 Dose: 100 mg Amlodipine Besylate (Norvasc) 2.5 mg PO DAILY [facility] Last Admin: 10/22/18 10:27 Dose: 2.5 mg Carbidopa/Levodopa (Sinemet) 1 tab PO BID [facility] Last Admin: 10/22/18 10:27 Dose: 1 tab Carbidopa/Levodopa (Sinemet) 1 tab PO DAILY@1200 [facility] Last Admin: 10/22/18 14:14 Dose: 1 tab Carbidopa/Levodopa (Sinemet) 1 tab PO QNOON [facility] Last Admin: 10/22/18 12:03 Dose: 1 tab Carbidopa/Levodopa (Sinemet Cr) 2 tab PO 0800 [facility] Clotrimazole (Lotrimin 1%) 0 gm TOP BID [facility] Last Admin: 10/22/18 10:28 Dose: 1 applic Dextrose (Dextrose 50% Inj) 0 ml IV STAT PRN; Protocol PRN Reason: Hypoglycemia Protocol Dextrose (Glutose 15) 0 gm PO ONCE PRN; Protocol PRN Reason: Hypoglycemia Protocol Divalproex Sodium (Depakote Sprinkles) 125 mg PO BID [facility] Last Admin: 10/22/18 10:30 Dose: 125 mg Docusate Sodium (Colace) 100 mg PO TID [facility] Glucagon (Glucagen Diagnostic Kit) 0 mg IM STAT PRN; Protocol PRN Reason: Hypoglycemia Protocol Heparin Sodium (Porcine) (Heparin) 5,000 units SC Q12 [facility] Last Admin: 10/22/18 10:27 Dose: 5,000 units Home Med (Patient's Own Medication) 1 tab PO DAILY [facility] Last Admin: 10/22/18 10:28 Dose: 1 tab Dextrose (Dextrose 5% In Water 1000 Ml) 1,000 mls @ 0 mls/hr IV .Q0M PRN; Protocol PRN Reason: Hypoglycemia Protocol Insulin Human Regular (Novolin R) 0 unit SC ACHS [facility]; Protocol Last Admin: 10/22/18 12:02 Dose: 4 units Metformin HCl (Glucophage) 500 mg PO DAILY [facility] Last Admin: 10/22/18 10:27 Dose: 500 mg Oxycodone/Acetaminophen (Percocet 5/325 Mg Tab) 1 tab PO Q12H PRN PRN Reason: Pain, moderate (4-7) Stop: 10/24/18 01:05 Rosuvastatin Calcium (Crestor) 5 mg PO HS [facility] Last Admin: 10/21/18 22:23 Dose: 5 mg Silver Sulfadiazine (Silvadene 1% 20 Gm) 0 ea TOP BID [facility] Last Admin: 10/22/18 10:28 Dose: 1 applic - Labs Labs: 10/22/18 07:19 10/22/18 07:19 - Additional Findings Additional findings: - Constitutional Appears: Non-toxic, No Acute Distress - Head Exam Head Exam: NORMAL INSPECTION, NORMOCEPHALIC, nits seen in hair throughout - Eye Exam Eye Exam: EOMI, Normal appearance. absent: Nystagmus, Scleral icterus - ENT Exam ENT Exam: Mucous Membranes Dry - Respiratory Exam Respiratory Exam: Clear to Auscultation Bilateral, NORMAL BREATHING PATTERN. absent: Rales, Rhonchi, Wheezes - Cardiovascular Exam Cardiovascular Exam: REGULAR RHYTHM, +S1, +S2. absent: Tachycardia - GI/Abdominal Exam GI & Abdominal Exam: Normal Bowel Sounds, Soft. absent: Diminished Bowel Sounds, Distended, Firm, Guarding, Tenderness - Extremities Exam Extremities exam: Positive for: normal inspection. Negative for: calf tenderness, pedal edema Additional comments: on left knee there is immobilizer with scar on medial part of knee clean incision, no erythema, blood or drainaged noted - Neurological Exam Neurological exam: Alert, Oriented x3, resting tremor b/l, tardive dyskinesia - Psychiatric Exam Psychiatric exam: Flat affect, Normal Mood - Skin Skin Exam: Dry, Intact Assessment and Plan - Assessment and Plan (Free Text) Assessment: Patient is a 63 yo female w/ PMH Parkinson's disease, mood disorder, DM2, HLD, and HTN sent from [facility] for abnormal labs. Electrolyte Disturbances Hyponatremia- likely hypovolemic hyponatremia with component of hyperglycemia; serum osm 277 Repeat CMP in AM increased from 125 to 137 Hypomagnesemia- 2 bags of Mag 1 gm in D5W; repeat mag in am Nephro consulted, Dr. Nunez, help appreciated urine osm: 230, urine random sodium: 56 meds: * NS @ 125mls/hr * Tolvaptan 15mg Weight Loss r/o malignancy Head CT w/o (10/21/18) : age related degenerative changes are identified as well as neural stimulator the right basal ganglia as discussed above. No intracranial hemorrhage, mass effect or cortical edema pattern identified. CT Chest, Abd, Pelvis with po and IV contrast (10/22/18): 1. no pulmonary mass or significant lymphadenopathy. mild cardiomegaly. potential pulmonary artery hypertension 2. possible constipation 3. possible antritis or mass affecting pylorus. gi consult advised 4. prior hysterectomy * GI, Dr. Bruno consulted, help appreciated * possible endoscopy? f/u protein electrophoresis, serum immunofixation, [place]/Lambda Parkinson's disease * Carbidopa/Levodopa 25-100mg 1 tab at 10am, 1.5 tabs at 12pm and 1 tab at 6 pm * Rytary NF, Carbidopa/Levodopa 50-200mg 1 tab po daily at 8am * Amantadine 100mg po bid * Ropinirole 2mg po daily Mood Disorder/BPD * Depakote 125mg po bid Stage 2 sacral ulcer * Clomitrazole cream * Silver Sulfidazine DM2 accuchecks achs * Metformin 500mg po daily * ISS sliding scale * Hypoglycemia protocol S/P L knee fracture * Tylenol PRN for pain * Oxycodone 1 tab po q12h prn knee immobilizer in place PT/OT HTN * Amlodipine 10mg po daily Constipation * Colace 100mg po TID * dulcolax x1 dose on 10/22/18 Lice patient to be treated with Permethrin 1% today and repeat on 10/29/18 contact precautions Prophylaxis SCDs no GI prophylaxis indicated Discussed with Dr. Ugarte <Jose Armando Ugarte - Last Filed: 10/22/18 22:24> Objective - Vital Signs/Intake and Output Vital Signs (last 24 hours): Temp Pulse Resp BP Pulse Ox 97.6 F 100 H 20 118/69 98 10/22/18 16:32 10/22/18 16:32 10/22/18 16:32 10/22/18 16:32 10/22/18 16:32 Intake and Output: 10/22/18 10/23/18 18:59 06:59 Intake Total 1760 Balance 1760 - Medications Medications: Current Medications Acetaminophen (Tylenol 325mg Tab) 650 mg PO Q4H PRN PRN Reason: Pain, Mild (1-3) Amantadine HCl (Amantadine 100 Mg Cap) 100 mg PO BID [facility] Last Admin: 10/22/18 18:27 Dose: 100 mg Amlodipine Besylate (Norvasc) 2.5 mg PO DAILY [facility] Last Admin: 10/22/18 10:27 Dose: 2.5 mg Carbidopa/Levodopa (Sinemet) 1 tab PO BID [facility] Last Admin: 10/22/18 18:27 Dose: 1 tab Carbidopa/Levodopa (Sinemet) 1 tab PO DAILY@1200 [facility] Last Admin: 10/22/18 14:14 Dose: 1 tab Carbidopa/Levodopa (Sinemet) 1 tab PO QNOON [facility] Last Admin: 10/22/18 12:03 Dose: 1 tab Carbidopa/Levodopa (Sinemet Cr) 2 tab PO 0800 [facility] Clotrimazole (Lotrimin 1%) 0 gm TOP BID [facility] Last Admin: 10/22/18 18:28 Dose: 1 applic Dextrose (Dextrose 50% Inj) 0 ml IV STAT PRN; Protocol PRN Reason: Hypoglycemia Protocol Dextrose (Glutose 15) 0 gm PO ONCE PRN; Protocol PRN Reason: Hypoglycemia Protocol Divalproex Sodium (Depakote Sprinkles) 125 mg PO BID [facility] Last Admin: 10/22/18 18:27 Dose: 125 mg Docusate Sodium (Colace) 100 mg PO TID [facility] Last Admin: 10/22/18 18:27 Dose: 100 mg Glucagon (Glucagen Diagnostic Kit) 0 mg IM STAT PRN; Protocol PRN Reason: Hypoglycemia Protocol Heparin Sodium (Porcine) (Heparin) 5,000 units SC Q12 [facility] Last Admin: 10/22/18 10:27 Dose: 5,000 units Home Med (Patient's Own Medication) 1 tab PO DAILY [facility] Last Admin: 10/22/18 10:28 Dose: 1 tab Dextrose (Dextrose 5% In Water 1000 Ml) 1,000 mls @ 0 mls/hr IV .Q0M PRN; Protocol PRN Reason: Hypoglycemia Protocol Insulin Human Regular (Novolin R) 0 unit SC ACHS [facility]; Protocol Last Admin: 10/22/18 18:53 Dose: Not Given Metformin HCl (Glucophage) 500 mg PO DAILY [facility] Last Admin: 10/22/18 10:27 Dose: 500 mg Oxycodone/Acetaminophen (Percocet 5/325 Mg Tab) 1 tab PO Q12H PRN PRN Reason: Pain, moderate (4-7) Stop: 10/24/18 01:05 Pantoprazole Sodium (Protonix Ec Tab) 40 mg PO DAILY [facility] Permethrin (Nix Complete Lice Elimination Kit 1%) 59 ml TOP ONCE ONE Stop: 10/29/18 08:01 Rosuvastatin Calcium (Crestor) 5 mg PO HS [facility] Last Admin: 10/21/18 22:23 Dose: 5 mg Silver Sulfadiazine (Silvadene 1% 20 Gm) 0 ea TOP BID [facility] Last Admin: 10/22/18 18:28 Dose: 1 applic - Labs Labs: 10/22/18 07:19 10/22/18 07:19 Attending/Attestation - Attestation I have personally seen and examined this patient.: Yes I have fully participated in the care of the patient.: Yes I have reviewed all pertinent clinical information, including history, physical exam and plan: Yes Notes (Text): 10/22/18 22:13 Patient was seen and examined with Dr. Canales. Care of this patient was gone over in detail with Dr. Canales. Sodium concentration now normal after IVF and Tolvaptan. Could the Hyponatremia have been secondary to "[place] and [place]" diet and fluid restriction at the rehab facility? Dr. Nunez is following and his help is appreciated. CT Head 10/21/18 showed age related changes (please see full report) CT Chest/Abdomen/Pelvis 10/21/18 indicated a thickened area of pyloris/antrum. Therefore GI consultation by Dr. Lois Bruno was sought and his help is appreciated Medicine Team please coordinate with Dr. Bruno for performance of EGD once the Na remains stable Anemia likely secondary to Iron Deficiency Please note that Iron studies were performed upon admission and the Iron level is low. Ferrous Sulfate 325 mg PO 1x/day F/U Stool Occult Blood x 3 F/U Vitamin B12 and Folate Protonix 40 mg PO 1x/day HOLD the Heparin 5,00 Units SC if the Stool OB comes back (+) or should the HgB/Hct drop further Sacral Ulcer Stage II On Silver Sulfadiazine Topical BID F/U Wound Care Nurse Enrique Yip recommendations on 10/23/18: change treatment to MediHoney and cover with Optifoam dressing instead ? Reposition patient every 2 hours Head Lice Contact precautions Premethrin Liquid 1% applied today by Nurse Chaz Reapplication ordered for 10/29/18. Presciption for this will need to be provided to patient should be discharged to home before then. Please see application instruction in the Permethrin order for 10/29/18. Patient would like to be discharge to home and NOT back to rehab facility when she is ready. Jose Armando Ugarte D.O.
[2018-10-22] MEDS ORDERED: Permethrin 1% Kit 59 ML BOTTLE TOP ONE (15:35)
--- NOTE | 2018-10-22 16:16 | CT ---
Date of service: 10/21/2018 PROCEDURE: CT Chest, Abdomen and Pelvis with contrast HISTORY: Weight loss. Hyponatremia COMPARISON: None available. TECHNIQUE: Helical CT of the chest, abdomen and pelvis was performed from the thoracic inlet to the pubic symphysis following dynamic intravenous contrast administration. IV dose administered: Visipaque 320, 100 cc Radiation dose: Total exam DLP = 464.29 mGy-cm. This CT exam was performed using one or more of the following dose reduction techniques: Automated exposure control, adjustment of the mA and/or kV according to patient size, and/or use of iterative reconstruction technique. FINDINGS: CT CHEST WITH CONTRAST: LUNGS: Clear. No nodule, mass or consolidation. MEDIASTINUM: Normal caliber abdominal aorta with no aortic dissection grossly appreciable. No aortic aneurysm throughout the chest though trace calcified atherosclerotic changes are associated with the aortic arch. Main pulmonary artery is dilated to 3.4 cm consider potential pulmonary artery hypertension. Mild cardiomegaly is noted. Permanent neural stimulator generator overlying the right pectoralis muscle with solitary lead entering into the neck. LYMPH NODES: Unremarkable. PLEURA: Unremarkable. No pneumothorax. No pleural fluid. BONES: Unremarkable. OTHER FINDINGS: None. CT ABDOMEN AND PELVIS: LIVER: Unremarkable. No gross lesion or ductal dilatation. GALLBLADDER AND BILE DUCTS: Unremarkable. PANCREAS: No definitive pancreatic mass. Pancreas is a trophic diffusely. SPLEEN: Unremarkable. ADRENALS: Unremarkable. No mass. KIDNEYS AND URETERS: Small cyst midpole left kidney. No hydronephrosis bilaterally or solid mass. VASCULATURE: Nonaneurysmal abdominal aortic calcific atherosclerotic changes are identified. BOWEL: No bowel obstruction evident. Evaluation of the gastrointestinal tract is limited due to the lack of oral contrast administration. Prominent retained fecal material scattered throughout the colon suggestive of constipation. No gross mural thickening appreciated throughout the colon. The stomach is mildly distend with retained fluid and gas. There is questionable thickening at the pylorus which could reflect antritis or possible mass. Consider endoscopic visualization. APPENDIX: Not identified. No CT evidence of appendicitis. PERITONEUM: Unremarkable. No free fluid. No free air. LYMPH NODES: Unremarkable. No enlarged lymph nodes. BLADDER: Distended but thin walled urinary bladder identified. REPRODUCTIVE: Prior hysterectomy. BONES: Advanced multilevel lumbar spondylosis with grade 1 spondylolisthesis L4-5, degenerative. No spondylolysis identified. OTHER FINDINGS: None. IMPRESSION: 1. No pulmonary mass or significant lymphadenopathy. Mild cardiomegaly. Potential pulmonary artery hypertension. Clinically correlate. 2. Possible constipation. 3. Possible antritis or may mass affecting pylorus. GI consultation advised. Consider endoscopic visualization for added characterization. 4. Prior hysterectomy. Other lesser findings as discussed above. Discordant preliminary report from [facility] regarding possible gastric pathology, with preliminary report submitted 10/21/2018, 9:16 p.m..
[2018-10-22] MEDS ORDERED: Bisacodyl 5mg EC Tab PO ONE ×2 (19:13→23:15)
--- NOTE | 2018-10-22 20:13 | CP.PCM.CON ---
History of Present Illness - History of Present Illness History of Present Illness: 63 year old female admitted from [facility] following knee surgery several weeks ago. Sent to ER for hyponatremia and poor po intake. Patient found to have microcytic anemia and admits to an 80 pound weight loss over the past year. CT Scan shows thickening of the pylorus/antrum and consult is called to exclude a malignancy as the source of the abnormal CT Scan as well as the weight loss. Has never had a screening colonoscopy but no other masses seen on the CT. No bleeding, melena, N/V. Admits to heartburn and dyspepsia at times. No dysphagia. Past Patient History - Past Medical History & Family History Past Medical History?: Yes - Past Social History Smoking Status: Never Smoked - CARDIAC Hx Hypertension: Yes - NEUROLOGICAL Hx Parkinson's Disease: Yes - ENDOCRINE/METABOLIC Hx Endocrine Disorders: Yes Hx Diabetes Mellitus Type 2: Yes - HEMATOLOGICAL/ONCOLOGICAL Hx Anemia: Yes Hx Cirrhosis: No Hx Hepatitis A: No Hx Hepatitis B: No Hx Hepatitis C: No Hx Human Immunodeficiency Virus (HIV): No - MUSCULOSKELETAL/RHEUMATOLOGICAL Hx Falls: Yes - PSYCHIATRIC Hx Substance Use: No - SURGICAL HISTORY Hx Surgeries: Yes Hx Orthopedic Surgery: Yes (right patella fracture) - ANESTHESIA Hx Anesthesia Reactions: Yes Hx Malignant Hyperthermia: No Meds Allergies/Adverse Reactions: Allergies Allergy/AdvReac Type Severity Reaction Status Date / Time No Known Allergies Allergy Unverified 10/20/18 21:30 - Medications Medications: Current Medications Acetaminophen (Tylenol 325mg Tab) 650 mg PO Q4H PRN PRN Reason: Pain, Mild (1-3) Amantadine HCl (Amantadine 100 Mg Cap) 100 mg PO BID [facility] Last Admin: 10/22/18 18:27 Dose: 100 mg Amlodipine Besylate (Norvasc) 2.5 mg PO DAILY [facility] Last Admin: 10/22/18 10:27 Dose: 2.5 mg Carbidopa/Levodopa (Sinemet) 1 tab PO BID [facility] Last Admin: 10/22/18 18:27 Dose: 1 tab Carbidopa/Levodopa (Sinemet) 1 tab PO DAILY@1200 [facility] Last Admin: 10/22/18 14:14 Dose: 1 tab Carbidopa/Levodopa (Sinemet) 1 tab PO QNOON [facility] Last Admin: 10/22/18 12:03 Dose: 1 tab Carbidopa/Levodopa (Sinemet Cr) 2 tab PO 0800 [facility] Clotrimazole (Lotrimin 1%) 0 gm TOP BID [facility] Last Admin: 10/22/18 18:28 Dose: 1 applic Dextrose (Dextrose 50% Inj) 0 ml IV STAT PRN; Protocol PRN Reason: Hypoglycemia Protocol Dextrose (Glutose 15) 0 gm PO ONCE PRN; Protocol PRN Reason: Hypoglycemia Protocol Divalproex Sodium (Depakote Sprinkles) 125 mg PO BID [facility] Last Admin: 10/22/18 18:27 Dose: 125 mg Docusate Sodium (Colace) 100 mg PO TID [facility] Last Admin: 10/22/18 18:27 Dose: 100 mg Glucagon (Glucagen Diagnostic Kit) 0 mg IM STAT PRN; Protocol PRN Reason: Hypoglycemia Protocol Heparin Sodium (Porcine) (Heparin) 5,000 units SC Q12 [facility] Last Admin: 10/22/18 10:27 Dose: 5,000 units Home Med (Patient's Own Medication) 1 tab PO DAILY [facility] Last Admin: 10/22/18 10:28 Dose: 1 tab Dextrose (Dextrose 5% In Water 1000 Ml) 1,000 mls @ 0 mls/hr IV .Q0M PRN; Protocol PRN Reason: Hypoglycemia Protocol Insulin Human Regular (Novolin R) 0 unit SC ACHS [facility]; Protocol Last Admin: 10/22/18 18:53 Dose: Not Given Metformin HCl (Glucophage) 500 mg PO DAILY [facility] Last Admin: 10/22/18 10:27 Dose: 500 mg Oxycodone/Acetaminophen (Percocet 5/325 Mg Tab) 1 tab PO Q12H PRN PRN Reason: Pain, moderate (4-7) Stop: 10/24/18 01:05 Permethrin (Nix Complete Lice Elimination Kit 1%) 59 ml TOP ONCE ONE Stop: 10/29/18 08:01 Rosuvastatin Calcium (Crestor) 5 mg PO HS [facility] Last Admin: 10/21/18 22:23 Dose: 5 mg Silver Sulfadiazine (Silvadene 1% 20 Gm) 0 ea TOP BID [facility] Last Admin: 10/22/18 18:28 Dose: 1 applic Physical Exam - Constitutional Appears: Cachectic, Chronically Ill Additional comments: Frail - Eye Exam Eye Exam: EOMI, PERRL - Respiratory Exam Respiratory Exam: Decreased Breath Sounds - Cardiovascular Exam Cardiovascular Exam: REGULAR RHYTHM, +S1 - GI/Abdominal Exam GI & Abdominal Exam: Normal Bowel Sounds, Soft. absent: Mass, Rebound, Tenderness - Extremities Exam Extremities exam: Negative for: joint swelling, pedal edema, tenderness - Neurological Exam Neurological exam: Alert, Oriented x3 - Skin Skin Exam: Dry, Warm Results - Vital Signs Recent Vital Signs: Last Vital Signs Temp 97.6 F 10/22/18 16:32 Pulse 100 H 10/22/18 16:32 Resp 20 10/22/18 16:32 BP 118/69 10/22/18 16:32 Pulse Ox 98 10/22/18 16:32 - Labs Result Diagrams: 10/23/18 07:04 10/23/18 07:04 Labs: Laboratory Results - last 24 hr 10/21/18 10/21/18 10/22/18 07:02 21:12 05:01 WBC RBC Hgb Hct MCV MCH MCHC RDW Plt Count MPV Neut % (Auto) Lymph % (Auto) [place] % (Auto) Eos % (Auto) Baso % (Auto) Neut # (Auto) Lymph # (Auto) [place] # (Auto) Eos # (Auto) Baso # (Auto) Sodium Potassium Chloride Carbon Dioxide Anion Gap BUN Creatinine Est GFR ( Amer) Est GFR (Non-Af Amer) POC Glucose (mg/dL) 89 86 Random Glucose Calcium Phosphorus Magnesium Total Bilirubin AST ALT Alkaline Phosphatase Total Protein Total Protein (PEP) 7.2 Albumin Globulin Albumin/Globulin Ratio Cortisol AM Sample 10/22/18 10/22/18 10/22/18 07:06 07:19 07:19 WBC 6.0 RBC 3.52 L Hgb 9.5 L Hct 29.2 L MCV 82.9 MCH 27.1 MCHC 32.6 L RDW 17.4 H Plt Count 619 H MPV 6.8 L Neut % (Auto) 57.7 Lymph % (Auto) 23.9 [place] % (Auto) 15.8 H Eos % (Auto) 1.0 Baso % (Auto) 1.6 Neut # (Auto) 3.5 Lymph # (Auto) 1.4 [place] # (Auto) 1.0 H Eos # (Auto) 0.1 Baso # (Auto) 0.1 Sodium 137 Potassium 4.2 Chloride 99 Carbon Dioxide 31 H Anion Gap 11 BUN 4 L Creatinine 0.5 L Est GFR ( Amer) > 60 Est GFR (Non-Af Amer) > 60 POC Glucose (mg/dL) 103 Random Glucose 100 Calcium 9.2 Phosphorus 4.5 Magnesium 1.8 Total Bilirubin 0.3 AST 15 ALT < 6 L Alkaline Phosphatase 185 H Total Protein 8.1 Total Protein (PEP) Albumin 3.5 Globulin 4.6 H Albumin/Globulin Ratio 0.8 L Cortisol AM Sample 10/22/18 10/22/18 10/22/18 07:48 11:06 17:01 WBC RBC Hgb Hct MCV MCH MCHC RDW Plt Count MPV Neut % (Auto) Lymph % (Auto) [place] % (Auto) Eos % (Auto) Baso % (Auto) Neut # (Auto) Lymph # (Auto) [place] # (Auto) Eos # (Auto) Baso # (Auto) Sodium Potassium Chloride Carbon Dioxide Anion Gap BUN Creatinine Est GFR ( Amer) Est GFR (Non-Af Amer) POC Glucose (mg/dL) 211 H 84 Random Glucose Calcium Phosphorus Magnesium Total Bilirubin AST ALT Alkaline Phosphatase Total Protein Total Protein (PEP) Albumin Globulin Albumin/Globulin Ratio Cortisol AM Sample 21.9 - Imaging and Cardiology CT scan - abdomen Status: Image reviewed by me, Report reviewed by me Assessment & Plan (1) Abnormal CT scan, stomach Assessment and Plan: r/o prepyloric malignancy vs fold thickening. Agree with EGD when patient is clinically stable prior to discharge and Na is improved. May also obtain UGI Series to better visualize if medical clearance or patient does not desire EGD. Status: Acute (2) Microcytic anemia Assessment and Plan: r/o GI Blood loss. Check iron, tibc, ferritin, b12, folate levels stool for OB x 3. Protonix or Pepcid advised. EGD when medically stable. Should also have a colonoscopy which can be done as an outpatient as well. Status: Acute (3) Weight loss Assessment and Plan: r/o occult malignancy. as above. Status: Acute
--- NOTE | 2018-10-22 22:25 | CP.PCM.PCO ---
Physician Communication Note - Physician Communication Note Physician Communication Note: Please see above
[2018-10-22 22:27] LABS: BLOOD UREA NITROGEN 8 mg/dL (7-17); CALCIUM 9.1 mg/dl (8.6-10.4); GFR NON-AFRICAN AMERICAN > 60
[2018-10-22 23:27] LABS: FOLATE 7.3 ng/mL
--- NOTE | 2018-10-23 07:18 | CP.PCM.PN ---
Subjective - Date & Time of Evaluation Date of Evaluation: 10/23/18 Time of Evaluation: 08:15 - Subjective Subjective: PGY1 Medicine progress note for Dr. Goodwin Patient seen and examined at bedside and in no acute distress. Patient reports that her scalp itching is improving with shampoo treatment. Patient has no acute complaints at this time. Patient denies chest pain, shortness of breath, abdominal pain, nausea, vomiting, constipation, or diarrhea, numbness or tingling, headaches, dizziness. She states that she hasn't had a bowel movement for the past day. Objective - Vital Signs/Intake and Output Vital Signs (last 24 hours): Temp Pulse Resp BP Pulse Ox 97.9 F 96 H 20 144/75 98 10/23/18 00:00 10/23/18 00:00 10/23/18 00:00 10/23/18 00:00 10/23/18 00:00 Intake and Output: 10/23/18 10/23/18 06:59 18:59 Intake Total 500 Balance 500 - Medications Medications: Current Medications Acetaminophen (Tylenol 325mg Tab) 650 mg PO Q4H PRN PRN Reason: Pain, Mild (1-3) Amantadine HCl (Amantadine 100 Mg Cap) 100 mg PO BID [facility] Last Admin: 10/22/18 18:27 Dose: 100 mg Amlodipine Besylate (Norvasc) 2.5 mg PO DAILY [facility] Last Admin: 10/22/18 10:27 Dose: 2.5 mg Carbidopa/Levodopa (Sinemet) 1 tab PO BID [facility] Last Admin: 10/22/18 18:27 Dose: 1 tab Carbidopa/Levodopa (Sinemet) 1 tab PO DAILY@1200 [facility] Last Admin: 10/22/18 14:14 Dose: 1 tab Carbidopa/Levodopa (Sinemet) 1 tab PO QNOON [facility] Last Admin: 10/22/18 12:03 Dose: 1 tab Carbidopa/Levodopa (Sinemet Cr) 2 tab PO 0800 [facility] Clotrimazole (Lotrimin 1%) 0 gm TOP BID [facility] Last Admin: 10/22/18 18:28 Dose: 1 applic Dextrose (Dextrose 50% Inj) 0 ml IV STAT PRN; Protocol PRN Reason: Hypoglycemia Protocol Dextrose (Glutose 15) 0 gm PO ONCE PRN; Protocol PRN Reason: Hypoglycemia Protocol Divalproex Sodium (Depakote Sprinkles) 125 mg PO BID [facility] Last Admin: 10/22/18 18:27 Dose: 125 mg Docusate Sodium (Colace) 100 mg PO TID [facility] Last Admin: 10/22/18 18:27 Dose: 100 mg Ferrous Sulfate (Feosol) 325 mg PO DAILY [facility] Glucagon (Glucagen Diagnostic Kit) 0 mg IM STAT PRN; Protocol PRN Reason: Hypoglycemia Protocol Heparin Sodium (Porcine) (Heparin) 5,000 units SC Q12 [facility] Last Admin: 10/22/18 22:42 Dose: 5,000 units Home Med (Patient's Own Medication) 1 tab PO DAILY [facility] Last Admin: 10/22/18 10:28 Dose: 1 tab Dextrose (Dextrose 5% In Water 1000 Ml) 1,000 mls @ 0 mls/hr IV .Q0M PRN; Protocol PRN Reason: Hypoglycemia Protocol Insulin Human Regular (Novolin R) 0 unit SC ACHS [facility]; Protocol Last Admin: 10/22/18 22:42 Dose: Not Given Metformin HCl (Glucophage) 500 mg PO DAILY [facility] Last Admin: 10/22/18 10:27 Dose: 500 mg Oxycodone/Acetaminophen (Percocet 5/325 Mg Tab) 1 tab PO Q12H PRN PRN Reason: Pain, moderate (4-7) Stop: 10/24/18 01:05 Pantoprazole Sodium (Protonix Ec Tab) 40 mg PO DAILY [facility] Permethrin (Nix Complete Lice Elimination Kit 1%) 59 ml TOP ONCE ONE Stop: 10/29/18 08:01 Rosuvastatin Calcium (Crestor) 5 mg PO HS [facility] Last Admin: 10/22/18 22:42 Dose: 5 mg Silver Sulfadiazine (Silvadene 1% 20 Gm) 0 ea TOP BID [facility] Last Admin: 10/22/18 18:28 Dose: 1 applic - Labs Labs: 10/22/18 07:19 10/22/18 22:05 - Additional Findings Additional findings: - Constitutional Appears: Non-toxic, No Acute Distress - Head Exam Head Exam: NORMAL INSPECTION, NORMOCEPHALIC - Eye Exam Eye Exam: EOMI, Normal appearance. absent: Nystagmus, Scleral icterus - ENT Exam ENT Exam: Mucous Membranes Dry - Respiratory Exam Respiratory Exam: Clear to Auscultation Bilateral, NORMAL BREATHING PATTERN. absent: Rales, Rhonchi, Wheezes - Cardiovascular Exam Cardiovascular Exam: REGULAR RHYTHM, +S1, +S2. absent: Tachycardia - GI/Abdominal Exam GI & Abdominal Exam: Normal Bowel Sounds, Soft. absent: Diminished Bowel Sounds, Distended, Firm, Guarding, Tenderness - Extremities Exam Extremities exam: Positive for: normal inspection. Negative for: calf tenderness, pedal edema Additional comments: Left knee there is immobilizer with scar on medial part of knee; clean incision, no erythema, blood or drainage noted. nontender on palpation, but with significant swelling, which is expected. - Neurological Exam Neurological exam: Alert, Oriented x3, resting tremor b/l, tardive dyskinesia, cogwheel rigidity. optical dispenser 2-12 grossly intact. 5/5 strength in upper and lower extremities. - Psychiatric Exam Psychiatric exam: Flat affect, Normal Mood - Skin Skin Exam: Dry, Intact Assessment and Plan - Assessment and Plan (Free Text) Assessment: Patient is a 63 yo female w/ PMH Parkinson's disease, mood disorder, DM2, HLD, and HTN sent from [facility] for abnormal labs. Plan: Electrolyte Disturbances Hyponatremia- resolved. Likely hypovolemic hyponatremia with component of hyperglycemia. 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 Na is stable at 133. Hypomagnesemia, resolved. Nephro consulted, Dr. Nunez. Recommendations appreciated Serum osm 277. Urine osm: 230, urine random sodium: 56 Weight Loss, with microcytic anemia/hyponatremia; r/o malignancy vs worsening of PD 80 lb weight loss as per pt/ over [address] w/o (10/21/18) : age related degenerative changes are identified as well as neural stimulator the right basal ganglia as discussed above. No intracranial hemorrhage, mass effect or cortical edema pattern identified. CT Chest, Abd, Pelvis with po and IV contrast (10/22/18): 1. no pulmonary mass or significant lymphadenopathy. mild cardiomegaly. potential pulmonary artery hypertension 2. possible constipation 3. possible antritis or mass affecting pylorus. gi consult advised 4. prior hysterectomy GI, Dr. Bruno consulted, help appreciated. Recommends endoscopy and colonoscopy to evaluate anemia. F/u protein electrophoresis, serum immunofixation, [place]/Lambda Microcytic anemia, possibly anemia of chronic disease or iron deficiency anemia with acute phase reactant elevation H/H is stable (9.5/28.3) MCV is 82.7 Iron <10, TIBC normal (276), %sat 3.62. Ferritin high (452) may be due to acute phase reactant No indication for transfusion at this time EGD in am Parkinson's disease Carbidopa/Levodopa 25-100mg 1 tab at 10am, 1.5 tabs at 12pm and 1 tab at 6 pm Carbidopa/Levodopa 50-200mg 1 tab po daily at 8am Amantadine 100mg po bid Ropinirole 2mg (pt's own) po daily Mood Disorder/BPD Depakote 125mg po bid Pt states that the depakote was started at rehab, and not by her PMD. To follow up with PMD, whether or not pt is on medication for mood stabilizer or seizure prophylaxis. Will potentially wean pt off of depakote if not needed. 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 NPO past midnight for EGD in am. Detsky risk index I - 6% complications for noncardiac surgery. Pt is medically optimized for EGD and/or colonoscopy. Case discussed with Dr. Buddy Shelby PGY1
[2018-10-23 07:28] LABS: BASO # 0.1 K/uL (0.0-0.2); EOS # 0.1 K/uL (0.0-0.7); HEMOGLOBIN 9.5 g/dL (11.0-16.0); LYMPH # 1.2 K/uL (1.0-4.3); LYMPH % 15.1 % (20.0-40.0); MEAN CELL VOLUME 82.7 fL (81.0-99.0); MEAN CORPUSCULAR HEMOGLOBIN 27.8 pg (27.0-31.0); MEAN CORPUSCULAR HGB CONC 33.6 g/dL (33.0-37.0); MEAN PLATELET VOLUME 7.1 fL (7.2-11.7); NEUT # 5.8 K/uL (1.8-7.0); NEUT % 70.9 % (50.0-75.0); RBC 3.42 Mil/uL (3.80-5.20); RED CELL DISTRIBUTION WIDTH 17.5 % (11.5-14.5); WHITE BLOOD COUNT 8.2 K/uL (4.8-10.8)
[2018-10-23 07:45] LABS: IRON < 10 ug/dL (37-170)
[2018-10-23 07:47] LABS: ALB/GLOB RATIO 0.8 (1.0-2.1); ALBUMIN 3.5 g/dL (3.5-5.0); ALT/SGPT < 6 U/L (9-52); AST/SGOT 17 U/L (14-36); BLOOD UREA NITROGEN 5 mg/dL (7-17); CALCIUM 9.1 mg/dl (8.6-10.4); GFR NON-AFRICAN AMERICAN > 60
[2018-10-23 07:55] LABS: % IRON SATURATION 3.62 (20-55); TOTAL IRON BINDING CAPACITY 276 ug/dL (250-450)
[2018-10-23] MEDS: (Novolin R) Insulin Human Regular 100 units/ml vial SC SCH ×4 (08:04→21:22)
[2018-10-23] MEDS: Carbidopa/Levodopa 25/100 CR PO SCH (08:55)
[2018-10-23] MEDS: ROPINIROLE 2 MG PO SCH (09:14)
[2018-10-23] MEDS: Divalproex 125 mg Sprinkle Capsule PO SCH ×2 (09:15→17:35)
[2018-10-23] MEDS: Pantoprazole 40 mg EC Tab PO SCH (09:15)
[2018-10-23] MEDS: Clotrimazole 1% Cream(30 gm) TOP SCH ×2 (09:16→17:35)
[2018-10-23] MEDS: Silver Sulfadiazine 1% Cream (20 gm) TOP SCH ×2 (09:16→17:35)
[2018-10-23] MEDS: LEVODOPA PO SCH (12:22)
[2018-10-23] MEDS: CARBIDOPA PO SCH (12:22)
--- NOTE | 2018-10-23 16:36 | CP.PCM.PN ---
Subjective - Date & Time of Evaluation Date of Evaluation: 10/23/18 Time of Evaluation: 16:33 - Subjective Subjective: Case discussed with Dr Bautista at bedside. Patient has been cleared for an EGD. Too frail to tolerate preparation for colonoscopy at this time. Objective - Vital Signs/Intake and Output Vital Signs (last 24 hours): Temp Pulse Resp BP Pulse Ox 98.7 F 108 H 20 116/69 96 10/23/18 16:11 10/23/18 16:11 10/23/18 16:11 10/23/18 16:11 10/23/18 16:11 Intake and Output: 10/23/18 10/23/18 06:59 18:59 Intake Total 500 Balance 500 - Medications Medications: Current Medications Acetaminophen (Tylenol 325mg Tab) 650 mg PO Q4H PRN PRN Reason: Pain, Mild (1-3) Amantadine HCl (Amantadine 100 Mg Cap) 100 mg PO BID [facility] Last Admin: 10/23/18 09:15 Dose: 100 mg Amlodipine Besylate (Norvasc) 2.5 mg PO DAILY [facility] Last Admin: 10/23/18 09:15 Dose: 2.5 mg Carbidopa/Levodopa (Sinemet) 1 tab PO BID [facility] Last Admin: 10/23/18 09:14 Dose: 1 tab Carbidopa/Levodopa (Sinemet) 1 tab PO DAILY@1200 [facility] Last Admin: 10/23/18 12:22 Dose: 1 tab Carbidopa/Levodopa (Sinemet) 1 tab PO QNOON [facility] Last Admin: 10/23/18 12:22 Dose: 1 tab Carbidopa/Levodopa (Sinemet Cr) 2 tab PO 0800 [facility] Last Admin: 10/23/18 08:55 Dose: 2 tab Clotrimazole (Lotrimin 1%) 0 gm TOP BID [facility] Last Admin: 10/23/18 09:16 Dose: 1 applic Dextrose (Dextrose 50% Inj) 0 ml IV STAT PRN; Protocol PRN Reason: Hypoglycemia Protocol Dextrose (Glutose 15) 0 gm PO ONCE PRN; Protocol PRN Reason: Hypoglycemia Protocol Divalproex Sodium (Depakote Sprinkles) 125 mg PO BID [facility] Last Admin: 10/23/18 09:15 Dose: 125 mg Docusate Sodium (Colace) 100 mg PO TID [facility] Last Admin: 10/23/18 13:29 Dose: 100 mg Ferrous Sulfate (Feosol) 325 mg PO DAILY [facility] Last Admin: 10/23/18 09:15 Dose: 325 mg Glucagon (Glucagen Diagnostic Kit) 0 mg IM STAT PRN; Protocol PRN Reason: Hypoglycemia Protocol Heparin Sodium (Porcine) (Heparin) 5,000 units SC Q12 [facility] Last Admin: 10/23/18 09:15 Dose: 5,000 units Home Med (Patient's Own Medication) 1 tab PO DAILY [facility] Last Admin: 10/23/18 09:14 Dose: 1 tab Dextrose (Dextrose 5% In Water 1000 Ml) 1,000 mls @ 0 mls/hr IV .Q0M PRN; Protocol PRN Reason: Hypoglycemia Protocol Insulin Human Regular (Novolin R) 0 unit SC ACHS [facility]; Protocol Last Admin: 10/23/18 12:20 Dose: 2 units Metformin HCl (Glucophage) 500 mg PO DAILY [facility] Last Admin: 10/23/18 09:15 Dose: 500 mg Oxycodone/Acetaminophen (Percocet 5/325 Mg Tab) 1 tab PO Q12H PRN PRN Reason: Pain, moderate (4-7) Stop: 10/24/18 01:05 Pantoprazole Sodium (Protonix Ec Tab) 40 mg PO DAILY [facility] Last Admin: 10/23/18 09:15 Dose: 40 mg Permethrin (Nix Complete Lice Elimination Kit 1%) 59 ml TOP ONCE ONE Stop: 10/29/18 08:01 Rosuvastatin Calcium (Crestor) 5 mg PO HS [facility] Last Admin: 10/22/18 22:42 Dose: 5 mg Silver Sulfadiazine (Silvadene 1% 20 Gm) 0 ea TOP BID [facility] Last Admin: 10/23/18 09:16 Dose: 1 applic - Labs Labs: 10/23/18 07:04 10/23/18 07:04 - Constitutional Appears: Cachectic, Chronically Ill - Respiratory Exam Respiratory Exam: Decreased Breath Sounds - Cardiovascular Exam Cardiovascular Exam: REGULAR RHYTHM - GI/Abdominal Exam GI & Abdominal Exam: Soft, Normal Bowel Sounds. absent: Tenderness, Mass, Rebound Assessment and Plan (1) Abnormal CT scan, stomach Assessment & Plan: For EGD in am as scheduled. Patient is agreeable and understands the test, risks and complications. Will obtain consent in OR tomorrow Status: Acute (2) Microcytic anemia Assessment & Plan: Increased ferritin may be related to acute phase reactant and is not typical of Fe Def Anemia. Low Iron and saturation noted. Status: Acute (3) Weight loss Assessment & Plan: as above. r/o occult malignancy. Gastric/pyloric mass to be excluded. Status: Acute
--- NOTE | 2018-10-23 16:48 | PQF ---
PROVIDER RESPONSE TEXT: Pressure Ulcer present on admission. See notes from [facility]. REVIEWER QUERY TEXT: Skin Ulcer Type and Severity Skin ulcer is documented in the Medical Record. Please specify the type and severity Such as: Type: -- Pressure ulcer -- Diabetic skin ulcer -- Venous stasis ulcer -- Other, please specify Severity: -- Limited to breakdown of skin -- With fat layer exposure -- With necrosis of muscle -- With necrosis of bone -- Other, please specify The patient's Clinical Indicators include: 63 Y O admitted from [facility] for Hyponatremia, Dehydration 10/23/18 [employer]PER[employer]OR [employer] OFFICE NOTE-PLEASE SEE PRESSURE ULCER ASSESSMENT-Asked to assess patient who presents to the hospital with a right medial buttocks stage 3 pressure ulcer Please Specify the Type and Stage and POA in your Progress Note Thank you Query created by: Slime Welch on 10/23/2018 4:26 PM Electronically signed by: Sushil Goodwin MD 10/23/2018 4:45 PM
--- NOTE | 2018-10-23 18:52 | CP.PCM.PN ---
<Denton Jackson - Last Filed: 10/23/18 18:53> Subjective - Date & Time of Evaluation Date of Evaluation: 10/23/18 Time of Evaluation: 06:00 - Subjective Subjective: Patient seen and evaluated bedside. Patients says she is eating a lot better and is aware of possible EGD by primary team. Objective - Vital Signs/Intake and Output Vital Signs (last 24 hours): Temp Pulse Resp BP Pulse Ox 98.7 F 108 H 20 116/69 96 10/23/18 16:11 10/23/18 16:11 10/23/18 16:11 10/23/18 16:11 10/23/18 16:11 Intake and Output: 10/23/18 10/23/18 06:59 18:59 Intake Total 500 Balance 500 - Medications Medications: Current Medications Acetaminophen (Tylenol 325mg Tab) 650 mg PO Q4H PRN PRN Reason: Pain, Mild (1-3) Amantadine HCl (Amantadine 100 Mg Cap) 100 mg PO BID [facility] Last Admin: 10/23/18 18:48 Dose: 100 mg Amlodipine Besylate (Norvasc) 2.5 mg PO DAILY [facility] Last Admin: 10/23/18 09:15 Dose: 2.5 mg Carbidopa/Levodopa (Sinemet) 1 tab PO BID [facility] Last Admin: 10/23/18 17:34 Dose: 1 tab Carbidopa/Levodopa (Sinemet) 1 tab PO DAILY@1200 [facility] Last Admin: 10/23/18 12:22 Dose: 1 tab Carbidopa/Levodopa (Sinemet) 1 tab PO QNOON [facility] Last Admin: 10/23/18 12:22 Dose: 1 tab Carbidopa/Levodopa (Sinemet Cr) 2 tab PO 0800 [facility] Last Admin: 10/23/18 08:55 Dose: 2 tab Clotrimazole (Lotrimin 1%) 0 gm TOP BID [facility] Last Admin: 10/23/18 17:35 Dose: 1 applic Dextrose (Dextrose 50% Inj) 0 ml IV STAT PRN; Protocol PRN Reason: Hypoglycemia Protocol Dextrose (Glutose 15) 0 gm PO ONCE PRN; Protocol PRN Reason: Hypoglycemia Protocol Divalproex Sodium (Depakote Sprinkles) 125 mg PO BID [facility] Last Admin: 10/23/18 17:35 Dose: 125 mg Docusate Sodium (Colace) 100 mg PO TID [facility] Last Admin: 10/23/18 17:34 Dose: 100 mg Ferrous Sulfate (Feosol) 325 mg PO DAILY [facility] Last Admin: 10/23/18 09:15 Dose: 325 mg Glucagon (Glucagen Diagnostic Kit) 0 mg IM STAT PRN; Protocol PRN Reason: Hypoglycemia Protocol Heparin Sodium (Porcine) (Heparin) 5,000 units SC Q12 [facility] Last Admin: 10/23/18 09:15 Dose: 5,000 units Home Med (Patient's Own Medication) 1 tab PO DAILY [facility] Last Admin: 10/23/18 09:14 Dose: 1 tab Dextrose (Dextrose 5% In Water 1000 Ml) 1,000 mls @ 0 mls/hr IV .Q0M PRN; Protocol PRN Reason: Hypoglycemia Protocol Insulin Human Regular (Novolin R) 0 unit SC ACHS [facility]; Protocol Last Admin: 10/23/18 17:34 Dose: 4 units Metformin HCl (Glucophage) 500 mg PO DAILY [facility] Last Admin: 10/23/18 09:15 Dose: 500 mg Oxycodone/Acetaminophen (Percocet 5/325 Mg Tab) 1 tab PO Q12H PRN PRN Reason: Pain, moderate (4-7) Stop: 10/24/18 01:05 Pantoprazole Sodium (Protonix Ec Tab) 40 mg PO DAILY [facility] Last Admin: 10/23/18 09:15 Dose: 40 mg Permethrin (Nix Complete Lice Elimination Kit 1%) 59 ml TOP ONCE ONE Stop: 10/29/18 08:01 Rosuvastatin Calcium (Crestor) 5 mg PO HS [facility] Last Admin: 10/22/18 22:42 Dose: 5 mg Silver Sulfadiazine (Silvadene 1% 20 Gm) 0 ea TOP BID [facility] Last Admin: 10/23/18 17:35 Dose: 1 applic - Labs Labs: 10/23/18 07:04 10/23/18 07:04 - Constitutional Appears: Non-toxic, No Acute Distress - Eye Exam Eye Exam: Normal appearance - Cardiovascular Exam Cardiovascular Exam: REGULAR RHYTHM - Extremities Exam Additional comments: no pedal edema Assessment and Plan - Assessment and Plan (Free Text) Plan: (1) Hyponatremia Assessment and Plan: -Na 133 -given tolvaptan 15 mg; will re-dose as needed -PO fluid restriction (<1500 cc/day) -avoid NSAIDS for pain (can potentiate the effect of ADH); -ensure adequate pain control -malignancy workup for possible cause of SIADH Status: Acute (2) HTN (hypertension) Assessment and Plan: Amlodipine 5mg continue Status: Chronic <Robert Nunez - Last Filed: 10/24/18 07:33> Objective - Vital Signs/Intake and Output Vital Signs (last 24 hours): Temp Pulse Resp BP Pulse Ox 98.2 F 84 20 117/69 96 10/24/18 00:00 10/24/18 00:00 10/24/18 00:00 10/24/18 00:00 10/24/18 00:00 Intake and Output: 10/24/18 10/24/18 06:59 18:59 Intake Total 480 Balance 480 - Medications Medications: Current Medications Acetaminophen (Tylenol 325mg Tab) 650 mg PO Q4H PRN PRN Reason: Pain, Mild (1-3) Amantadine HCl (Amantadine 100 Mg Cap) 100 mg PO BID [facility] Last Admin: 10/23/18 18:48 Dose: 100 mg Amlodipine Besylate (Norvasc) 2.5 mg PO DAILY [facility] Last Admin: 10/23/18 09:15 Dose: 2.5 mg Carbidopa/Levodopa (Sinemet) 1 tab PO BID [facility] Last Admin: 10/23/18 17:34 Dose: 1 tab Carbidopa/Levodopa (Sinemet) 1 tab PO DAILY@1200 [facility] Last Admin: 10/23/18 12:22 Dose: 1 tab Carbidopa/Levodopa (Sinemet) 1 tab PO QNOON [facility] Last Admin: 10/23/18 12:22 Dose: 1 tab Carbidopa/Levodopa (Sinemet Cr) 2 tab PO 0800 [facility] Last Admin: 10/23/18 08:55 Dose: 2 tab Clotrimazole (Lotrimin 1%) 0 gm TOP BID [facility] Last Admin: 10/23/18 17:35 Dose: 1 applic Dextrose (Dextrose 50% Inj) 0 ml IV STAT PRN; Protocol PRN Reason: Hypoglycemia Protocol Dextrose (Glutose 15) 0 gm PO ONCE PRN; Protocol PRN Reason: Hypoglycemia Protocol Divalproex Sodium (Depakote Sprinkles) 125 mg PO BID [facility] Last Admin: 10/23/18 17:35 Dose: 125 mg Docusate Sodium (Colace) 100 mg PO TID [facility] Last Admin: 10/23/18 17:34 Dose: 100 mg Ferrous Sulfate (Feosol) 325 mg PO DAILY [facility] Last Admin: 10/23/18 09:15 Dose: 325 mg Glucagon (Glucagen Diagnostic Kit) 0 mg IM STAT PRN; Protocol PRN Reason: Hypoglycemia Protocol Heparin Sodium (Porcine) (Heparin) 5,000 units SC Q12 [facility] Last Admin: 10/23/18 21:42 Dose: 5,000 units Home Med (Patient's Own Medication) 1 tab PO DAILY [facility] Last Admin: 10/23/18 09:14 Dose: 1 tab Dextrose (Dextrose 5% In Water 1000 Ml) 1,000 mls @ 0 mls/hr IV .Q0M PRN; Protocol PRN Reason: Hypoglycemia Protocol Insulin Human Regular (Novolin R) 0 unit SC ACHS [facility]; Protocol Last Admin: 10/23/18 21:22 Dose: Not Given Metformin HCl (Glucophage) 500 mg PO DAILY [facility] Last Admin: 10/23/18 09:15 Dose: 500 mg Pantoprazole Sodium (Protonix Ec Tab) 40 mg PO DAILY [facility] Last Admin: 10/23/18 09:15 Dose: 40 mg Permethrin (Nix Complete Lice Elimination Kit 1%) 59 ml TOP ONCE ONE Stop: 10/29/18 08:01 Rosuvastatin Calcium (Crestor) 5 mg PO HS [facility] Last Admin: 10/23/18 21:42 Dose: 5 mg Silver Sulfadiazine (Silvadene 1% 20 Gm) 0 ea TOP BID [facility] Last Admin: 10/23/18 17:35 Dose: 1 applic - Labs Labs: 10/23/18 07:04 10/23/18 07:04 Assessment and Plan (1) Hyponatremia Status: Acute (2) HTN (hypertension) Status: Chronic Attending/Attestation - Attestation I have personally seen and examined this patient.: Yes I have fully participated in the care of the patient.: Yes I have reviewed all pertinent clinical information, including history, physical exam and plan: Yes Notes (Text): Patient seen and examined; I agree with the resident's note as above with the following additions/edits: Patient admitted with hyponatremia, thought to be secondary to SIADH; serum Na rapidly corrected with single dose of tolvaptan, given 1.5L of D5W yesterday to decrease level; currently stable with Na 133; mainstay of treatment is PO fluid restriction; will re-dose tolvaptan as needed; -1.5L PO fluid restriction; -agree with malignancy workup; -amlodipine decreased to 2.5 mg, continue for now but may consider stopping altogether as BP too tightly controlled and patient on meds that can cause orthostatic symptoms;
--- NOTE | 2018-10-24 06:44 | CP.PCM.PN ---
Subjective - Date & Time of Evaluation Date of Evaluation: 10/24/18 Time of Evaluation: 07:30 - Subjective Subjective: PGY1 Medicine progress note for Dr. Goodwin Patient seen and examined at bedside and in no acute distress. Patient has no acute complaints at this time. Patient denies chest pain, shortness of breath, abdominal pain, nausea, vomiting, constipation, or diarrhea, numbness or tingling, headaches, dizziness. Pt to go for EGD today. Objective - Vital Signs/Intake and Output Vital Signs (last 24 hours): Temp Pulse Resp BP Pulse Ox 98.2 F 84 20 117/69 96 10/24/18 00:00 10/24/18 00:00 10/24/18 00:00 10/24/18 00:00 10/24/18 00:00 Intake and Output: 10/23/18 10/24/18 18:59 06:59 Intake Total 480 Balance 480 - Medications Medications: Current Medications Acetaminophen (Tylenol 325mg Tab) 650 mg PO Q4H PRN PRN Reason: Pain, Mild (1-3) Amantadine HCl (Amantadine 100 Mg Cap) 100 mg PO BID [facility] Last Admin: 10/23/18 18:48 Dose: 100 mg Amlodipine Besylate (Norvasc) 2.5 mg PO DAILY [facility] Last Admin: 10/23/18 09:15 Dose: 2.5 mg Carbidopa/Levodopa (Sinemet) 1 tab PO BID [facility] Last Admin: 10/23/18 17:34 Dose: 1 tab Carbidopa/Levodopa (Sinemet) 1 tab PO DAILY@1200 [facility] Last Admin: 10/23/18 12:22 Dose: 1 tab Carbidopa/Levodopa (Sinemet) 1 tab PO QNOON [facility] Last Admin: 10/23/18 12:22 Dose: 1 tab Carbidopa/Levodopa (Sinemet Cr) 2 tab PO 0800 [facility] Last Admin: 10/23/18 08:55 Dose: 2 tab Clotrimazole (Lotrimin 1%) 0 gm TOP BID [facility] Last Admin: 10/23/18 17:35 Dose: 1 applic Dextrose (Dextrose 50% Inj) 0 ml IV STAT PRN; Protocol PRN Reason: Hypoglycemia Protocol Dextrose (Glutose 15) 0 gm PO ONCE PRN; Protocol PRN Reason: Hypoglycemia Protocol Divalproex Sodium (Depakote Sprinkles) 125 mg PO BID [facility] Last Admin: 10/23/18 17:35 Dose: 125 mg Docusate Sodium (Colace) 100 mg PO TID [facility] Last Admin: 10/23/18 17:34 Dose: 100 mg Ferrous Sulfate (Feosol) 325 mg PO DAILY [facility] Last Admin: 10/23/18 09:15 Dose: 325 mg Glucagon (Glucagen Diagnostic Kit) 0 mg IM STAT PRN; Protocol PRN Reason: Hypoglycemia Protocol Heparin Sodium (Porcine) (Heparin) 5,000 units SC Q12 [facility] Last Admin: 10/23/18 21:42 Dose: 5,000 units Home Med (Patient's Own Medication) 1 tab PO DAILY [facility] Last Admin: 10/23/18 09:14 Dose: 1 tab Dextrose (Dextrose 5% In Water 1000 Ml) 1,000 mls @ 0 mls/hr IV .Q0M PRN; Protocol PRN Reason: Hypoglycemia Protocol Insulin Human Regular (Novolin R) 0 unit SC ACHS [facility]; Protocol Last Admin: 10/23/18 21:22 Dose: Not Given Metformin HCl (Glucophage) 500 mg PO DAILY [facility] Last Admin: 10/23/18 09:15 Dose: 500 mg Pantoprazole Sodium (Protonix Ec Tab) 40 mg PO DAILY [facility] Last Admin: 10/23/18 09:15 Dose: 40 mg Permethrin (Nix Complete Lice Elimination Kit 1%) 59 ml TOP ONCE ONE Stop: 10/29/18 08:01 Rosuvastatin Calcium (Crestor) 5 mg PO HS [facility] Last Admin: 10/23/18 21:42 Dose: 5 mg Silver Sulfadiazine (Silvadene 1% 20 Gm) 0 ea TOP BID [facility] Last Admin: 10/23/18 17:35 Dose: 1 applic - Labs Labs: 10/23/18 07:04 10/23/18 07:04 - Additional Findings Additional findings: - Constitutional Appears: Non-toxic, No Acute Distress - Head Exam Head Exam: NORMAL INSPECTION, NORMOCEPHALIC - Eye Exam Eye Exam: EOMI, Normal appearance. absent: Nystagmus, Scleral icterus - ENT Exam ENT Exam: Mucous Membranes Dry - Respiratory Exam Respiratory Exam: Clear to Auscultation Bilateral, NORMAL BREATHING PATTERN. absent: Rales, Rhonchi, Wheezes - Cardiovascular Exam Cardiovascular Exam: REGULAR RHYTHM, +S1, +S2. absent: Tachycardia - GI/Abdominal Exam GI & Abdominal Exam: Normal Bowel Sounds, Soft. absent: Diminished Bowel Sounds, Distended, Firm, Guarding, Tenderness - Extremities Exam Extremities exam: Positive for: normal inspection. Negative for: calf tenderness, pedal edema Additional comments: Left knee there is immobilizer with scar on medial part of knee; clean incision, no erythema, blood or drainage noted. nontender on palpation, but with significant swelling, which is expected. - Neurological Exam Neurological exam: Alert, Oriented x3, resting tremor b/l, tardive dyskinesia, cogwheel rigidity. 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 5/5 strength in upper and lower extremities. - Psychiatric Exam Psychiatric exam: Flat affect, Normal Mood - Skin Skin Exam: Dry, Intact. Deep brain stimulator wires palpated on right posterior neck: nontender, no signs of infection Assessment and Plan - Assessment and Plan (Free Text) Assessment: Patient is a 63 yo female w/ PMH Parkinson's disease, mood disorder, DM2, HLD, and HTN sent from [facility] for abnormal labs. Plan: Electrolyte Disturbances Hyponatremia- resolved. Likely hypovolemic hyponatremia with component of hyperglycemia. 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 Na is stable at 133. S/p Tolvaptan 25 mg PO. Hypomagnesemia, resolved. Nephro consulted, Dr. Nunez. Recommendations appreciated Serum osm 277. Urine osm: 230, urine random sodium: 56 Weight Loss, with anemia/hyponatremia; r/o malignancy vs worsening of PD 80 lb weight loss as per pt/ over [address] w/o (10/21/18) : age related degenerative changes are identified as well as neural stimulator the right basal ganglia as discussed above. No intracranial hemorrhage, mass effect or cortical edema pattern identified. CT Chest, Abd, Pelvis with po and IV contrast (10/22/18): 1. no pulmonary mass or significant lymphadenopathy. mild cardiomegaly. potential pulmonary artery hypertension 2. possible constipation 3. possible antritis or mass affecting pylorus. gi consult advised 4. prior hysterectomy GI, Dr. Bruno consulted, help appreciated. Pt will go for EGD today, potentially colonoscopy with inpatient as well. F/u protein electrophoresis, serum immunofixation, [place]/Lambda Anemia of chronic disease or iron deficiency anemia with acute phase reactant elevation H/H is stable (9.7/29.0) MCV is 82.4 Iron <10, TIBC normal (276), %sat 3.62. Ferritin high (452) may be due to acute phase reactant No indication for transfusion at this time Pt will go for EGD today, potentially colonoscopy with inpatient as well. Parkinson's disease Carbidopa/Levodopa 25-100mg 1 tab at 10am, 1.5 tabs at 12pm and 1 tab at 6 pm Carbidopa/Levodopa 50-200mg 1 tab po daily at 8am Amantadine 100mg po bid Ropinirole 2mg (pt's own) po daily Hx of Mood Disorder/BPD Depakote sprinkles 125mg po bid, changed to Depakote 100 mg PO BID until 10/28/18. Pt states that the depakote was started at rehab, and not by her PMD. Case discussed with PMD (Dr. Ian Ugarte), who reports pt has no history of seizures, mood disorder, or prescribing the mediation. Will taper Depakote sprinkles over course of four weeks: 100 mg po BID for 1 week, 75 mg po BID for 1 week, 50 mg po BID for 1 week, 25 mg po BID for 1 week. Stage 3 sacral ulcer Clomitrazole cream Silver Sulfidazine patent attorney to eval and treat DM2 Cccuchecks achs Metformin 500mg po daily ISS sliding scale Hypoglycemia protocol S/P L knee fracture Tylenol PRN for pain Oxycodone 1 tab po q12h prn Knee immobilizer in place PT/OT evaluation, with plan for home PT HTN Amlodipine 10mg po daily Constipation Colace 100mg po TID Head lice Pt reports symptoms improving Patient to be treated with Permethrin 1% repeat on 10/29/18 Continue contact precautions Prophylaxis SCDs No GI prophylaxis indicated at this time SW eval for home discharge with services pending Dispo: SW evaluation for discharge home with services. Pt will go for EGD this morning. Detsky risk index I - 6% complications for noncardiac surgery. Case discussed with Dr. Buddy Shelby PGY1
[2018-10-24 07:35] LABS: BASO # 0.1 K/uL (0.0-0.2); BASO % 0.8 % (0.0-2.0); EOS # 0.1 K/uL (0.0-0.7); EOS % 0.8 % (0.0-4.0); HEMOGLOBIN 9.7 g/dL (11.0-16.0); LYMPH # 1.3 K/uL (1.0-4.3); LYMPH % 13.8 % (20.0-40.0); MEAN CELL VOLUME 82.4 fL (81.0-99.0); MEAN CORPUSCULAR HEMOGLOBIN 27.5 pg (27.0-31.0); MEAN CORPUSCULAR HGB CONC 33.4 g/dL (33.0-37.0); MONO # 0.8 K/uL (0.0-0.8); NEUT # 7.1 K/uL (1.8-7.0); NEUT % 75.6 % (50.0-75.0); RBC 3.53 Mil/uL (3.80-5.20); RED CELL DISTRIBUTION WIDTH 17.8 % (11.5-14.5); WHITE BLOOD COUNT 9.4 K/uL (4.8-10.8)
[2018-10-24 07:40] LABS: INR 1.3; PROTHROMBIN TIME 14.4 SECONDS (9.7-12.2)
[2018-10-24 07:46] LABS: ALB/GLOB RATIO 0.8 (1.0-2.1); ALBUMIN 3.5 g/dL (3.5-5.0); ALT/SGPT < 6 U/L (9-52); AST/SGOT 12 U/L (14-36); BLOOD UREA NITROGEN 12 mg/dL (7-17); CALCIUM 9.3 mg/dl (8.6-10.4); GFR NON-AFRICAN AMERICAN > 60
[2018-10-24] MEDS ORDERED: Lactated Ringer's 500 ML IV ONE (08:25)
[2018-10-24] MEDS: (Novolin R) Insulin Human Regular 100 units/ml vial SC SCH ×4 (08:27→22:19)
[2018-10-24] MEDS ORDERED: Propofol 10 mg/ml Inj (20 ML) ONE (08:30)
--- NOTE | 2018-10-24 08:40 | CP.PCM.PN ---
Subjective - Date & Time of Evaluation Date of Evaluation: 10/24/18 Time of Evaluation: 08:39 - Subjective Subjective: EGD: see full operative report/photos Antral gastritis with thickened pre-pyloric folds but NO mass. Hiatal hernia Rec/ Patient agreeable to prep for colonoscopy tomorrow to be done before discharge Prep order written Hold Iron Objective - Vital Signs/Intake and Output Vital Signs (last 24 hours): Temp Pulse Resp BP Pulse Ox 98.2 F 84 20 117/69 96 10/24/18 00:00 10/24/18 00:00 10/24/18 00:00 10/24/18 00:00 10/24/18 00:00 Intake and Output: 10/24/18 10/24/18 06:59 18:59 Intake Total 480 Balance 480 - Medications Medications: Current Medications Acetaminophen (Tylenol 325mg Tab) 650 mg PO Q4H PRN PRN Reason: Pain, Mild (1-3) Amantadine HCl (Amantadine 100 Mg Cap) 100 mg PO BID [facility] Last Admin: 10/23/18 18:48 Dose: 100 mg Amlodipine Besylate (Norvasc) 2.5 mg PO DAILY [facility] Last Admin: 10/23/18 09:15 Dose: 2.5 mg Bisacodyl (Dulcolax) 10 mg PO ONCE ONE Stop: 10/24/18 17:01 Carbidopa/Levodopa (Sinemet) 1 tab PO BID [facility] Last Admin: 10/23/18 17:34 Dose: 1 tab Carbidopa/Levodopa (Sinemet) 1 tab PO DAILY@1200 [facility] Last Admin: 10/23/18 12:22 Dose: 1 tab Carbidopa/Levodopa (Sinemet) 1 tab PO QNOON [facility] Last Admin: 10/23/18 12:22 Dose: 1 tab Carbidopa/Levodopa (Sinemet Cr) 2 tab PO 0800 [facility] Last Admin: 10/23/18 08:55 Dose: 2 tab Clotrimazole (Lotrimin 1%) 0 gm TOP BID [facility] Last Admin: 10/23/18 17:35 Dose: 1 applic Dextrose (Dextrose 50% Inj) 0 ml IV STAT PRN; Protocol PRN Reason: Hypoglycemia Protocol Dextrose (Glutose 15) 0 gm PO ONCE PRN; Protocol PRN Reason: Hypoglycemia Protocol Divalproex Sodium (Depakote Sprinkles) 125 mg PO BID [facility] Last Admin: 10/23/18 17:35 Dose: 125 mg Docusate Sodium (Colace) 100 mg PO TID [facility] Last Admin: 10/23/18 17:34 Dose: 100 mg Ferrous Sulfate (Feosol) 325 mg PO DAILY [facility] Last Admin: 10/23/18 09:15 Dose: 325 mg Glucagon (Glucagen Diagnostic Kit) 0 mg IM STAT PRN; Protocol PRN Reason: Hypoglycemia Protocol Heparin Sodium (Porcine) (Heparin) 5,000 units SC Q12 [facility] Last Admin: 10/23/18 21:42 Dose: 5,000 units Home Med (Patient's Own Medication) 1 tab PO DAILY [facility] Last Admin: 10/23/18 09:14 Dose: 1 tab Dextrose (Dextrose 5% In Water 1000 Ml) 1,000 mls @ 0 mls/hr IV .Q0M PRN; Protocol PRN Reason: Hypoglycemia Protocol Insulin Human Regular (Novolin R) 0 unit SC ACHS [facility]; Protocol Last Admin: 10/24/18 08:27 Dose: Not Given Metformin HCl (Glucophage) 500 mg PO DAILY [facility] Last Admin: 10/23/18 09:15 Dose: 500 mg Pantoprazole Sodium (Protonix Ec Tab) 40 mg PO DAILY [facility] Last Admin: 10/23/18 09:15 Dose: 40 mg Permethrin (Nix Complete Lice Elimination Kit 1%) 59 ml TOP ONCE ONE Stop: 10/29/18 08:01 Polyethylene Glycol/Electrolytes (Golytely) 2,000 ml PO ONCE ONE Stop: 10/24/18 17:01 Rosuvastatin Calcium (Crestor) 5 mg PO HS [facility] Last Admin: 10/23/18 21:42 Dose: 5 mg Silver Sulfadiazine (Silvadene 1% 20 Gm) 0 ea TOP BID [facility] Last Admin: 10/23/18 17:35 Dose: 1 applic - Labs Labs: 10/24/18 07:15 10/24/18 07:15 PT 14.4 SECONDS (9.7-12.2) H 10/24/18 07:15 INR 1.3 10/24/18 07:15 APTT 37 SECONDS (21-34) H 10/24/18 07:15 Assessment and Plan (1) Abnormal CT scan, stomach Status: Acute (2) Microcytic anemia Status: Acute (3) Weight loss Status: Acute
[2018-10-24] MEDS: Carbidopa/Levodopa 25/100 CR PO SCH (09:10)
[2018-10-24] MEDS: ROPINIROLE 2 MG PO SCH (10:25)
[2018-10-24] MEDS: Pantoprazole 40 mg EC Tab PO SCH (10:25)
[2018-10-24] MEDS: Divalproex 125 mg Sprinkle Capsule PO SCH (10:26)
[2018-10-24] MEDS: Clotrimazole 1% Cream(30 gm) TOP SCH ×2 (10:27→17:31)
[2018-10-24] MEDS: Silver Sulfadiazine 1% Cream (20 gm) TOP SCH ×2 (10:27→17:31)
[2018-10-24] MEDS ORDERED: Magnesium Sulfate 1 gm in D5W 1 GM/100 ML BAG IVPB ONE (11:00)
--- NOTE | 2018-10-24 11:00 | CP.PCM.PN ---
Subjective - Date & Time of Evaluation Date of Evaluation: 10/24/18 Time of Evaluation: 06:00 - Subjective Subjective: Patient seen and evaluated bedside in AM. Patient had EGD done in AM. She is tolerating liquid diet, no current complaints. Objective - Vital Signs/Intake and Output Vital Signs (last 24 hours): Temp Pulse Resp BP Pulse Ox 96.0 F L 99 H 25 H 120/61 100 10/24/18 08:40 10/24/18 09:10 10/24/18 09:10 10/24/18 09:10 10/24/18 09:10 Intake and Output: 10/24/18 10/24/18 06:59 18:59 Intake Total 480 Balance 480 - Medications Medications: Current Medications Acetaminophen (Tylenol 325mg Tab) 650 mg PO Q4H PRN PRN Reason: Pain, Mild (1-3) Amantadine HCl (Amantadine 100 Mg Cap) 100 mg PO BID [facility] Last Admin: 10/24/18 10:26 Dose: 100 mg Amlodipine Besylate (Norvasc) 2.5 mg PO DAILY [facility] Last Admin: 10/24/18 10:41 Dose: 2.5 mg Bisacodyl (Dulcolax) 10 mg PO ONCE ONE Stop: 10/24/18 17:01 Carbidopa/Levodopa (Sinemet) 1 tab PO BID [facility] Last Admin: 10/24/18 10:25 Dose: 1 tab Carbidopa/Levodopa (Sinemet) 1 tab PO DAILY@1200 [facility] Last Admin: 10/23/18 12:22 Dose: 1 tab Carbidopa/Levodopa (Sinemet) 1 tab PO QNOON [facility] Last Admin: 10/23/18 12:22 Dose: 1 tab Carbidopa/Levodopa (Sinemet Cr) 2 tab PO 0800 [facility] Last Admin: 10/24/18 09:10 Dose: Not Given Clotrimazole (Lotrimin 1%) 0 gm TOP BID [facility] Last Admin: 10/24/18 10:27 Dose: 1 applic Dextrose (Dextrose 50% Inj) 0 ml IV STAT PRN; Protocol PRN Reason: Hypoglycemia Protocol Dextrose (Glutose 15) 0 gm PO ONCE PRN; Protocol PRN Reason: Hypoglycemia Protocol Divalproex Sodium (Depakote Sprinkles) 125 mg PO BID [facility] Last Admin: 10/24/18 10:26 Dose: 125 mg Docusate Sodium (Colace) 100 mg PO TID [facility] Last Admin: 10/24/18 10:19 Dose: 100 mg Ferrous Sulfate (Feosol) 325 mg PO DAILY [facility] Last Admin: 10/23/18 09:15 Dose: 325 mg Glucagon (Glucagen Diagnostic Kit) 0 mg IM STAT PRN; Protocol PRN Reason: Hypoglycemia Protocol Heparin Sodium (Porcine) (Heparin) 5,000 units SC Q12 [facility] Last Admin: 10/23/18 21:42 Dose: 5,000 units Home Med (Patient's Own Medication) 1 tab PO DAILY [facility] Last Admin: 10/24/18 10:25 Dose: 1 tab Dextrose (Dextrose 5% In Water 1000 Ml) 1,000 mls @ 0 mls/hr IV .Q0M PRN; Protocol PRN Reason: Hypoglycemia Protocol Magnesium Sulfate/Dextrose (Magnesium Sulfate 1 Gm/100 Ml D5w) 1 gm in 100 mls @ 200 mls/hr IVPB ONCE ONE Stop: 10/24/18 11:29 Last Admin: 10/24/18 10:43 Dose: 200 mls/hr Insulin Human Regular (Novolin R) 0 unit SC ACHS [facility]; Protocol Last Admin: 10/24/18 08:27 Dose: Not Given Metformin HCl (Glucophage) 500 mg PO DAILY [facility] Last Admin: 10/24/18 10:25 Dose: 500 mg Pantoprazole Sodium (Protonix Ec Tab) 40 mg PO DAILY [facility] Last Admin: 10/24/18 10:25 Dose: 40 mg Permethrin (Nix Complete Lice Elimination Kit 1%) 59 ml TOP ONCE ONE Stop: 10/29/18 08:01 Polyethylene Glycol/Electrolytes (Golytely) 2,000 ml PO ONCE ONE Stop: 10/24/18 17:01 Polyethylene Glycol/Electrolytes (Golytely) 2,000 ml PO ONCE ONE Stop: 10/25/18 05:01 Rosuvastatin Calcium (Crestor) 5 mg PO HS [facility] Last Admin: 10/23/18 21:42 Dose: 5 mg Silver Sulfadiazine (Silvadene 1% 20 Gm) 0 ea TOP BID [facility] Last Admin: 10/24/18 10:27 Dose: 1 applic - Labs Labs: 10/24/18 07:15 10/24/18 07:15 PT 14.4 SECONDS (9.7-12.2) H 10/24/18 07:15 INR 1.3 10/24/18 07:15 APTT 37 SECONDS (21-34) H 10/24/18 07:15 - Eye Exam Eye Exam: Normal appearance - Respiratory Exam Respiratory Exam: Clear to Ausculation Bilateral - Cardiovascular Exam Cardiovascular Exam: REGULAR RHYTHM, +S1, +S2 - GI/Abdominal Exam GI & Abdominal Exam: Soft Assessment and Plan - Assessment and Plan (Free Text) Plan: (1) Hyponatremia Assessment and Plan: -Na 133 -given tolvaptan 15 mg 2 days; will re-dose as needed -continue PO fluid restriction (<1500 cc/day) -avoid NSAIDS for pain (can potentiate the effect of ADH); -ensure adequate pain control -malignancy workup for possible cause of SIADH -EGD done in AM showing antral gastritis with prepyloric folds, no mass. Also showing hiatal hernia -patient will undergo colonoscopy tomorrow AM Status: Acute (2) HTN (hypertension) Assessment and Plan: -Amlodipine 2.5mg continue Status: Chronic
[2018-10-24] MEDS ORDERED: Divalproex 125 mg Sprinkle Capsule PO SCH (11:31)
[2018-10-24] MEDS: LEVODOPA PO SCH (12:42)
[2018-10-24] MEDS: CARBIDOPA PO SCH (12:42)
[2018-10-24] MEDS: Sodium Chloride 0.9% 1,000 ML IV SCH (14:29)
[2018-10-24] MEDS ORDERED: Peg-Electrolyte Oral Soln 4L (Golytely) PO ONE (17:00)
[2018-10-24] MEDS ORDERED: Bisacodyl 5mg EC Tab PO ONE (17:00)
[2018-10-25] MEDS: Sodium Chloride 0.9% 1,000 ML IV SCH ×3 (04:30→23:18)
[2018-10-25] MEDS ORDERED: Peg-Electrolyte Oral Soln 4L (Golytely) PO ONE ×2 (05:00→19:00)
[2018-10-25 07:10] LABS: BASO # 0.1 K/uL (0.0-0.2); BASO % 0.9 % (0.0-2.0); EOS # 0.1 K/uL (0.0-0.7); EOS % 0.8 % (0.0-4.0); HEMOGLOBIN 9.1 g/dL (11.0-16.0); LYMPH # 1.2 K/uL (1.0-4.3); LYMPH % 13.6 % (20.0-40.0); MEAN CELL VOLUME 82.2 fL (81.0-99.0); MEAN CORPUSCULAR HEMOGLOBIN 27.1 pg (27.0-31.0); MEAN PLATELET VOLUME 6.8 fL (7.2-11.7); MONO # 0.8 K/uL (0.0-0.8); MONO % 8.7 % (0.0-10.0); NEUT # 6.8 K/uL (1.8-7.0); RBC 3.34 Mil/uL (3.80-5.20); RED CELL DISTRIBUTION WIDTH 17.7 % (11.5-14.5); WHITE BLOOD COUNT 8.9 K/uL (4.8-10.8)
[2018-10-25] MEDS: (Novolin R) Insulin Human Regular 100 units/ml vial SC SCH ×4 (07:44→21:47)
[2018-10-25 07:54] LABS: ALB/GLOB RATIO 0.8 (1.0-2.1); ALBUMIN 3.3 g/dL (3.5-5.0); ALT/SGPT < 6 U/L (9-52); AST/SGOT 15 U/L (14-36); BLOOD UREA NITROGEN 10 mg/dL (7-17); CALCIUM 8.5 mg/dl (8.6-10.4); GFR NON-AFRICAN AMERICAN > 60
[2018-10-25] MEDS: Carbidopa/Levodopa 25/100 CR PO SCH (09:00)
[2018-10-25] MEDS: Pantoprazole 40 mg EC Tab PO SCH (09:13)
[2018-10-25] MEDS: ROPINIROLE 2 MG PO SCH (09:15)
[2018-10-25] MEDS: Silver Sulfadiazine 1% Cream (20 gm) TOP SCH ×2 (09:17→17:32)
[2018-10-25] MEDS: Clotrimazole 1% Cream(30 gm) TOP SCH ×2 (09:18→17:32)
[2018-10-25] MEDS ORDERED: Potassium Chloride 20 mEq ER Tab PO ONE ×2 (10:00→11:15)
[2018-10-25] MEDS: Magnesium Sulfate 1 gm in D5W 1 GM/100 ML BAG IVPB SCH ×4 (10:15→14:01)
[2018-10-25] MEDS ORDERED: Propofol 10 mg/ml Inj (20 ML) ONE (10:30)
[2018-10-25] MEDS ORDERED: Lidocaine Hydrochloride 5 ML INJ ONE (10:31)
--- NOTE | 2018-10-25 10:48 | CP.PCM.PN ---
Subjective - Date & Time of Evaluation Date of Evaluation: 10/25/18 Time of Evaluation: 10:47 - Subjective Subjective: Colonoscopy attempted but solid stool filled rectum along with semi-liquid dark stool. Unable to advance beyond rectosigmoid. No rectal mass lesion Repeat preparation and will attempt colonoscopy tomorrow if tolerated. Objective - Vital Signs/Intake and Output Vital Signs (last 24 hours): Temp Pulse Resp BP Pulse Ox 98.8 F 102 H 20 147/76 96 10/25/18 10:23 10/25/18 10:23 10/25/18 10:23 10/25/18 10:23 10/25/18 10:23 Intake and Output: 10/25/18 10/25/18 06:59 18:59 Intake Total 3000 2500 Output Total 1 Balance 2999 2500 - Medications Medications: Current Medications Acetaminophen (Tylenol 325mg Tab) 650 mg PO Q4H PRN PRN Reason: Pain, Mild (1-3) Amantadine HCl (Amantadine 100 Mg Cap) 100 mg PO BID [facility] Last Admin: 10/25/18 09:14 Dose: 100 mg Amlodipine Besylate (Norvasc) 2.5 mg PO DAILY [facility] Last Admin: 10/25/18 09:13 Dose: 2.5 mg Carbidopa/Levodopa (Sinemet) 1 tab PO BID [facility] Last Admin: 10/25/18 09:13 Dose: 1 tab Carbidopa/Levodopa (Sinemet) 1 tab PO DAILY@1200 [facility] Last Admin: 10/24/18 12:41 Dose: 1 tab Carbidopa/Levodopa (Sinemet) 1 tab PO QNOON [facility] Last Admin: 10/24/18 12:42 Dose: 1 tab Carbidopa/Levodopa (Sinemet Cr) 2 tab PO 0800 [facility] Last Admin: 10/25/18 09:00 Dose: 2 tab Clotrimazole (Lotrimin 1%) 0 gm TOP BID [facility] Last Admin: 10/25/18 09:18 Dose: 1 applic Dextrose (Dextrose 50% Inj) 0 ml IV STAT PRN; Protocol PRN Reason: Hypoglycemia Protocol Dextrose (Glutose 15) 0 gm PO ONCE PRN; Protocol PRN Reason: Hypoglycemia Protocol Docusate Sodium (Colace) 100 mg PO TID [facility] Last Admin: 10/25/18 09:13 Dose: 100 mg Ferrous Sulfate (Feosol) 325 mg PO DAILY [facility] Last Admin: 10/23/18 09:15 Dose: 325 mg Glucagon (Glucagen Diagnostic Kit) 0 mg IM STAT PRN; Protocol PRN Reason: Hypoglycemia Protocol Heparin Sodium (Porcine) (Heparin) 5,000 units SC Q12 [facility] Last Admin: 10/24/18 21:51 Dose: 5,000 units Home Med (Patient's Own Medication) 1 tab PO DAILY [facility] Last Admin: 10/25/18 09:15 Dose: 1 tab Dextrose (Dextrose 5% In Water 1000 Ml) 1,000 mls @ 0 mls/hr IV .Q0M PRN; Protocol PRN Reason: Hypoglycemia Protocol Sodium Chloride (Sodium Chloride 0.9%) 1,000 mls @ 75 mls/hr IV .[id number] [facility] Last Admin: 10/25/18 04:30 Dose: 75 mls/hr Magnesium Sulfate/Dextrose (Magnesium Sulfate 1 Gm/100 Ml D5w) 1 gm in 100 mls @ 300 mls/hr IVPB Q30M [facility] Stop: 10/25/18 10:49 Last Admin: 10/25/18 10:33 Dose: Not Given Insulin Human Regular (Novolin R) 0 unit SC ACHS [facility]; Protocol Last Admin: 10/25/18 07:44 Dose: Not Given Metformin HCl (Glucophage) 500 mg PO DAILY [facility] Last Admin: 10/25/18 09:14 Dose: Not Given Pantoprazole Sodium (Protonix Ec Tab) 40 mg PO DAILY [facility] Last Admin: 10/25/18 09:13 Dose: 40 mg Permethrin (Nix Complete Lice Elimination Kit 1%) 59 ml TOP ONCE ONE Stop: 10/29/18 08:01 Rosuvastatin Calcium (Crestor) 5 mg PO HS [facility] Last Admin: 10/24/18 21:51 Dose: 5 mg Silver Sulfadiazine (Silvadene 1% 20 Gm) 0 ea TOP BID [facility] Last Admin: 10/25/18 09:17 Dose: 1 applic - Labs Labs: 10/25/18 07:02 10/25/18 07:02 PT 14.4 SECONDS (9.7-12.2) H 10/24/18 07:15 INR 1.3 10/24/18 07:15 APTT 37 SECONDS (21-34) H 10/24/18 07:15 Assessment and Plan (1) Abnormal CT scan, stomach Status: Acute (2) Microcytic anemia Status: Acute (3) Weight loss Status: Acute
[2018-10-25] MEDS ORDERED: Magnesium Sulfate 1 gm in D5W 1 GM/100 ML BAG IVPB SCH (12:00)
[2018-10-25] MEDS: LEVODOPA PO SCH (12:02)
[2018-10-25] MEDS: CARBIDOPA PO SCH (12:02)
--- NOTE | 2018-10-25 13:13 | CP.PCM.PN ---
Subjective - Date & Time of Evaluation Date of Evaluation: 10/25/18 Time of Evaluation: 07:45 - Subjective Subjective: PGY1 Medicine progress note for Dr. Goodwin Patient seen and examined at bedside and in no acute distress. Patient has no acute complaints. Patient denies chest pain, shortness of breath, abdominal pain, nausea, vomiting, constipation, or diarrhea, numbness or tingling, headaches, dizziness. Scalp itchiness is resolved. Pt returned from colonoscopy, which needs to be repeated due to poor prep. Objective - Vital Signs/Intake and Output Vital Signs (last 24 hours): Temp Pulse Resp BP Pulse Ox 97.1 F L 102 H 20 123/59 L 100 10/25/18 11:14 10/25/18 11:14 10/25/18 11:14 10/25/18 11:14 10/25/18 11:14 Intake and Output: 10/25/18 10/25/18 06:59 18:59 Intake Total 3000 2600 Output Total 1 Balance 2999 2600 - Medications Medications: Current Medications Acetaminophen (Tylenol 325mg Tab) 650 mg PO Q4H PRN PRN Reason: Pain, Mild (1-3) Amantadine HCl (Amantadine 100 Mg Cap) 100 mg PO BID [facility] Last Admin: 10/25/18 09:14 Dose: 100 mg Amlodipine Besylate (Norvasc) 2.5 mg PO DAILY [facility] Last Admin: 10/25/18 09:13 Dose: 2.5 mg Bisacodyl (Dulcolax) 10 mg PO ONCE ONE Stop: 10/25/18 17:01 Carbidopa/Levodopa (Sinemet) 1 tab PO BID [facility] Last Admin: 10/25/18 09:13 Dose: 1 tab Carbidopa/Levodopa (Sinemet) 1 tab PO DAILY@1200 [facility] Last Admin: 10/25/18 12:00 Dose: 1 tab Carbidopa/Levodopa (Sinemet) 1 tab PO QNOON [facility] Last Admin: 10/25/18 12:02 Dose: 1 tab Carbidopa/Levodopa (Sinemet Cr) 2 tab PO 0800 [facility] Last Admin: 10/25/18 09:00 Dose: 2 tab Clotrimazole (Lotrimin 1%) 0 gm TOP BID [facility] Last Admin: 10/25/18 09:18 Dose: 1 applic Dextrose (Dextrose 50% Inj) 0 ml IV STAT PRN; Protocol PRN Reason: Hypoglycemia Protocol Dextrose (Glutose 15) 0 gm PO ONCE PRN; Protocol PRN Reason: Hypoglycemia Protocol Docusate Sodium (Colace) 100 mg PO TID [facility] Last Admin: 10/25/18 09:13 Dose: 100 mg Ferrous Sulfate (Feosol) 325 mg PO DAILY [facility] Last Admin: 10/23/18 09:15 Dose: 325 mg Glucagon (Glucagen Diagnostic Kit) 0 mg IM STAT PRN; Protocol PRN Reason: Hypoglycemia Protocol Heparin Sodium (Porcine) (Heparin) 5,000 units SC Q12 [facility] Last Admin: 10/24/18 21:51 Dose: 5,000 units Home Med (Patient's Own Medication) 1 tab PO DAILY [facility] Last Admin: 10/25/18 09:15 Dose: 1 tab Dextrose (Dextrose 5% In Water 1000 Ml) 1,000 mls @ 0 mls/hr IV .Q0M PRN; Protocol PRN Reason: Hypoglycemia Protocol Sodium Chloride (Sodium Chloride 0.9%) 1,000 mls @ 75 mls/hr IV .[id number] [facility] Last Admin: 10/25/18 04:30 Dose: 75 mls/hr Magnesium Sulfate/Dextrose (Magnesium Sulfate 1 Gm/100 Ml D5w) 1 gm in 100 mls @ 100 mls/hr IVPB Q1H [facility] Stop: 10/25/18 13:59 Last Admin: 10/25/18 12:07 Dose: 100 mls/hr Insulin Human Regular (Novolin R) 0 unit SC ACHS [facility]; Protocol Last Admin: 10/25/18 12:02 Dose: Not Given Metformin HCl (Glucophage) 500 mg PO DAILY [facility] Last Admin: 10/25/18 09:14 Dose: Not Given Pantoprazole Sodium (Protonix Ec Tab) 40 mg PO DAILY [facility] Last Admin: 10/25/18 09:13 Dose: 40 mg Permethrin (Nix Complete Lice Elimination Kit 1%) 59 ml TOP ONCE ONE Stop: 10/29/18 08:01 Polyethylene Glycol/Electrolytes (Golytely) 4,000 ml PO ONCE ONE Stop: 10/25/18 19:01 Rosuvastatin Calcium (Crestor) 5 mg PO HS [facility] Last Admin: 10/24/18 21:51 Dose: 5 mg Silver Sulfadiazine (Silvadene 1% 20 Gm) 0 ea TOP BID [facility] Last Admin: 10/25/18 09:17 Dose: 1 applic Sodium Phosphate (Fleet Enema) 135 ml UT ONCE ONE Stop: 10/26/18 06:01 - Labs Labs: 10/25/18 07:02 10/25/18 07:02 PT 14.4 SECONDS (9.7-12.2) H 10/24/18 07:15 INR 1.3 10/24/18 07:15 APTT 37 SECONDS (21-34) H 10/24/18 07:15 - Additional Findings Additional findings: - Constitutional Appears: Non-toxic, No Acute Distress - Head Exam Head Exam: NORMAL INSPECTION, NORMOCEPHALIC - Eye Exam Eye Exam: EOMI, Normal appearance. absent: Nystagmus, Scleral icterus - ENT Exam ENT Exam: Mucous Membranes Dry - Respiratory Exam Respiratory Exam: Clear to Auscultation Bilateral, NORMAL BREATHING PATTERN. absent: Rales, Rhonchi, Wheezes - Cardiovascular Exam Cardiovascular Exam: REGULAR RHYTHM, +S1, +S2. absent: Tachycardia - GI/Abdominal Exam GI & Abdominal Exam: Normal Bowel Sounds, Soft. absent: Diminished Bowel Joanne nds, Distended, Firm, Guarding, Tenderness - Extremities Exam Extremities exam: Positive for: normal inspection. Negative for: calf tenderness, pedal edema Additional comments: Left knee there is immobilizer with scar on medial part of knee; clean incision, no erythema, blood or drainage noted. nontender on palpation, but with swelling, minimal erythema. Some pain on knee extension. - Neurological Exam Neurological exam: Alert, Oriented x3, resting tremor b/l, tardive dyskinesia, cogwheel rigidity. bill clerk 2-12 grossly intact. 5/5 strength in upper and lower extremities. - Psychiatric Exam Psychiatric exam: Flat affect, Normal Mood - Skin Skin Exam: Dry, Intact. Deep brain stimulator wires palpated on right posterior neck: nontender, no signs of infection Assessment and Plan - Assessment and Plan (Free Text) Assessment: Patient is a 63 yo female w/ PMH Parkinson's disease, mood disorder, DM2, HLD, and HTN sent from [facility] for abnormal labs. Plan: Electrolyte Disturbances Hyponatremia- resolved. Likely hypovolemic hyponatremia with component of hyperglycemia. 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 Na is stable at 133. S/p Tolvaptan 25 mg PO. Hypomagnesemia, resolved. Nephro consulted, Dr. Nunez. Recommendations appreciated Serum osm 277. Urine osm: 230, urine random sodium: 56 Depakote sprinles discontinued 10/24/18 Weight Loss, with anemia/hyponatremia; r/o malignancy vs worsening of PD 80 lb weight loss as per pt/ over [address] w/o (10/21/18) : age related degenerative changes are identified as well as neural stimulator the right basal ganglia as discussed above. No intracranial hemorrhage, mass effect or cortical edema pattern identified. CT Chest, Abd, Pelvis with po and IV contrast (10/22/18): 1. no pulmonary mass or significant lymphadenopathy. mild cardiomegaly. potential pulmonary artery hypertension 2. possible constipation 3. possible antritis or mass affecting pylorus. gi consult advised 4. prior hysterectomy GI, Dr. Bruno consulted, help appreciated. Pt will go for EGD today, potentially colonoscopy with inpatient as well. F/u protein electrophoresis, serum immunofixation, Biehle/Lambda Anemia of chronic disease or iron deficiency anemia with acute phase reactant elevation H/H is stable (9.1/27.5) Iron <10, TIBC normal (276), %sat 3.62. Ferritin high (452) may be due to acute phase reactant No indication for transfusion at this time Upper endoscopy was well tolerated this 10/24/18 Gastritis: biopsied. Small hiatal hernia. No mass. Normal duodenum. Returned from colonscopy today. Needs to be repeated due to poor bowel prep. Parkinson's disease Of note, pt has deep brain stimulator implanted for parkinson's disease implanted in June 2018. Dr. Ramirez Carbidopa/Levodopa 25-100mg 1 tab at 10am, 1.5 tabs at 12pm and 1 tab at 6 pm Carbidopa/Levodopa 50-200mg 1 tab po daily at 8am Amantadine 100mg po bid Ropinirole 2mg (pt's own) po daily Hx of Mood Disorder/BPD Pt states that the depakote was started at rehab, and not by her PMD. Case discussed with PMD (Dr. Ian Ugarte), who reports pt has no history of seizures, mood disorder, or prescribing the mediation. 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 Bobby Petit as per pt Tylenol PRN for pain Oxycodone 1 tab po q12h prn Knee immobilizer in place PT/OT evaluation, with plan for home PT or further rehab treatment at [facility] in [place] HTN Amlodipine 10mg po daily Constipation Colace 100mg po TID Head lice Pt reports symptoms improving Patient to be treated with Permethrin 1% repeat on 10/29/18 Continue contact precautions Prophylaxis SCDs, will hold morning heparin dose for colonoscopy tomorrow morning No GI prophylaxis indicated at this time SW eval for home discharge with services pending Dispo: SW evaluation for discharge home with services. Pt will go for repeat colonoscopy tomorrow. Detsky risk index I - 6% complications for noncardiac surgery. Case discussed with Dr. Buddy Shelby PGY1
--- NOTE | 2018-10-25 16:31 | CP.PCM.PN ---
<Denton Jackson - Last Filed: 10/25/18 16:36> Subjective - Date & Time of Evaluation Date of Evaluation: 10/25/18 Time of Evaluation: 07:00 - Subjective Subjective: Patient seen and evaluated bedside in AM. Patient denies any complaints. Objective - Vital Signs/Intake and Output Vital Signs (last 24 hours): Temp Pulse Resp BP Pulse Ox 97.1 F L 102 H 20 123/59 L 100 10/25/18 11:14 10/25/18 11:14 10/25/18 11:14 10/25/18 11:14 10/25/18 11:14 Intake and Output: 10/25/18 10/25/18 06:59 18:59 Intake Total 3000 3600 Output Total 1 Balance 2999 3600 - Medications Medications: Current Medications Acetaminophen (Tylenol 325mg Tab) 650 mg PO Q4H PRN PRN Reason: Pain, Mild (1-3) Amantadine HCl (Amantadine 100 Mg Cap) 100 mg PO BID [facility] Last Admin: 10/25/18 09:14 Dose: 100 mg Amlodipine Besylate (Norvasc) 2.5 mg PO DAILY [facility] Last Admin: 10/25/18 09:13 Dose: 2.5 mg Bisacodyl (Dulcolax) 10 mg PO ONCE ONE Stop: 10/25/18 17:01 Carbidopa/Levodopa (Sinemet) 1 tab PO BID [facility] Last Admin: 10/25/18 09:13 Dose: 1 tab Carbidopa/Levodopa (Sinemet) 1 tab PO DAILY@1200 [facility] Last Admin: 10/25/18 12:00 Dose: 1 tab Carbidopa/Levodopa (Sinemet) 1 tab PO QNOON [facility] Last Admin: 10/25/18 12:02 Dose: 1 tab Carbidopa/Levodopa (Sinemet Cr) 2 tab PO 0800 [facility] Last Admin: 10/25/18 09:00 Dose: 2 tab Clotrimazole (Lotrimin 1%) 0 gm TOP BID [facility] Last Admin: 10/25/18 09:18 Dose: 1 applic Dextrose (Dextrose 50% Inj) 0 ml IV STAT PRN; Protocol PRN Reason: Hypoglycemia Protocol Dextrose (Glutose 15) 0 gm PO ONCE PRN; Protocol PRN Reason: Hypoglycemia Protocol Docusate Sodium (Colace) 100 mg PO TID [facility] Last Admin: 10/25/18 14:09 Dose: 100 mg Ferrous Sulfate (Feosol) 325 mg PO DAILY [facility] Last Admin: 10/23/18 09:15 Dose: 325 mg Glucagon (Glucagen Diagnostic Kit) 0 mg IM STAT PRN; Protocol PRN Reason: Hypoglycemia Protocol Heparin Sodium (Porcine) (Heparin) 5,000 units SC Q12 [facility] Last Admin: 10/24/18 21:51 Dose: 5,000 units Home Med (Patient's Own Medication) 1 tab PO DAILY [facility] Last Admin: 10/25/18 09:15 Dose: 1 tab Dextrose (Dextrose 5% In Water 1000 Ml) 1,000 mls @ 0 mls/hr IV .Q0M PRN; Protocol PRN Reason: Hypoglycemia Protocol Sodium Chloride (Sodium Chloride 0.9%) 1,000 mls @ 75 mls/hr IV .[id number] [facility] Last Admin: 10/25/18 04:30 Dose: 75 mls/hr Insulin Human Regular (Novolin R) 0 unit SC ACHS [facility]; Protocol Last Admin: 10/25/18 12:02 Dose: Not Given Metformin HCl (Glucophage) 500 mg PO DAILY [facility] Last Admin: 10/25/18 09:14 Dose: Not Given Pantoprazole Sodium (Protonix Ec Tab) 40 mg PO DAILY [facility] Last Admin: 10/25/18 09:13 Dose: 40 mg Permethrin (Nix Complete Lice Elimination Kit 1%) 59 ml TOP ONCE ONE Stop: 10/29/18 08:01 Polyethylene Glycol/Electrolytes (Golytely) 4,000 ml PO ONCE ONE Stop: 10/25/18 19:01 Rosuvastatin Calcium (Crestor) 5 mg PO HS [facility] Last Admin: 10/24/18 21:51 Dose: 5 mg Silver Sulfadiazine (Silvadene 1% 20 Gm) 0 ea TOP BID [facility] Last Admin: 10/25/18 09:17 Dose: 1 applic Sodium Phosphate (Fleet Enema) 135 ml [place] ONCE ONE Stop: 10/26/18 06:01 - Labs Labs: 10/25/18 07:02 10/25/18 07:02 PT 14.4 SECONDS (9.7-12.2) H 10/24/18 07:15 INR 1.3 10/24/18 07:15 APTT 37 SECONDS (21-34) H 10/24/18 07:15 - Constitutional Appears: Non-toxic - Head Exam Head Exam: NORMAL INSPECTION - Respiratory Exam Respiratory Exam: Clear to Ausculation Bilateral, NORMAL BREATHING PATTERN - Cardiovascular Exam Cardiovascular Exam: REGULAR RHYTHM Assessment and Plan - Assessment and Plan (Free Text) Plan: (1) Hyponatremia Assessment and Plan: -Na 133 -given tolvaptan 15 mg 3 days ago; will re-dose as needed -continue PO fluid restriction (<1500 cc/day) -avoid NSAIDS for pain (can potentiate the effect of ADH); -ensure adequate pain control -malignancy workup for possible cause of SIADH -EGD done in AM showing antral gastritis with prepyloric folds, no mass. Also showing hiatal hernia -colonoscopy done in AM with poor bowl prep, will repeat in AM Status: Acute (2) HTN (hypertension) Assessment and Plan: -Amlodipine 2.5mg continue Status: Chronic (3) Hypokalemia Assessment and Plan: -K 3.2, repleted continue to monitor Status: Acute <Robert Nunez - Last Filed: 10/26/18 08:02> Objective - Vital Signs/Intake and Output Vital Signs (last 24 hours): Temp Pulse Resp BP Pulse Ox 98.1 F 91 H 20 124/72 97 10/26/18 00:00 10/26/18 00:00 10/26/18 00:00 10/26/18 00:00 10/26/18 00:00 Intake and Output: 10/26/18 10/26/18 06:59 18:59 Intake Total 4200 Output Total 8 Balance 4192 - Medications Medications: Current Medications Acetaminophen (Tylenol 325mg Tab) 650 mg PO Q4H PRN PRN Reason: Pain, Mild (1-3) Amantadine HCl (Amantadine 100 Mg Cap) 100 mg PO BID [facility] Last Admin: 10/25/18 17:35 Dose: 100 mg Amlodipine Besylate (Norvasc) 2.5 mg PO DAILY [facility] Last Admin: 10/25/18 09:13 Dose: 2.5 mg Carbidopa/Levodopa (Sinemet) 1 tab PO BID [facility] Last Admin: 10/25/18 17:35 Dose: 1 tab Carbidopa/Levodopa (Sinemet) 1 tab PO DAILY@1200 [facility] Last Admin: 10/25/18 12:00 Dose: 1 tab Carbidopa/Levodopa (Sinemet) 1 tab PO QNOON [facility] Last Admin: 10/25/18 12:02 Dose: 1 tab Carbidopa/Levodopa (Sinemet Cr) 2 tab PO 0800 [facility] Last Admin: 10/25/18 09:00 Dose: 2 tab Clotrimazole (Lotrimin 1%) 0 gm TOP BID [facility] Last Admin: 10/25/18 17:32 Dose: 1 applic Dextrose (Dextrose 50% Inj) 0 ml IV STAT PRN; Protocol PRN Reason: Hypoglycemia Protocol Dextrose (Glutose 15) 0 gm PO ONCE PRN; Protocol PRN Reason: Hypoglycemia Protocol Docusate Sodium (Colace) 100 mg PO TID [facility] Last Admin: 10/25/18 17:35 Dose: 100 mg Ferrous Sulfate (Feosol) 325 mg PO DAILY [facility] Last Admin: 10/23/18 09:15 Dose: 325 mg Glucagon (Glucagen Diagnostic Kit) 0 mg IM STAT PRN; Protocol PRN Reason: Hypoglycemia Protocol Heparin Sodium (Porcine) (Heparin) 5,000 units SC Q12 [facility] Last Admin: 10/25/18 21:12 Dose: 5,000 units Home Med (Patient's Own Medication) 1 tab PO DAILY [facility] Last Admin: 10/25/18 09:15 Dose: 1 tab Dextrose (Dextrose 5% In Water 1000 Ml) 1,000 mls @ 0 mls/hr IV .Q0M PRN; Protocol PRN Reason: Hypoglycemia Protocol Sodium Chloride (Sodium Chloride 0.9%) 1,000 mls @ 75 mls/hr IV .[id number] [facility] Last Admin: 10/26/18 06:20 Dose: Not Given Insulin Human Regular (Novolin R) 0 unit SC ACHS [facility]; Protocol Last Admin: 10/25/18 21:47 Dose: Not Given Metformin HCl (Glucophage) 500 mg PO DAILY [facility] Last Admin: 10/25/18 09:14 Dose: Not Given Pantoprazole Sodium (Protonix Ec Tab) 40 mg PO DAILY [facility] Last Admin: 10/25/18 09:13 Dose: 40 mg Permethrin (Nix Complete Lice Elimination Kit 1%) 59 ml TOP ONCE ONE Stop: 10/29/18 08:01 Rosuvastatin Calcium (Crestor) 5 mg PO HS [facility] Last Admin: 10/25/18 21:11 Dose: 5 mg Silver Sulfadiazine (Silvadene 1% 20 Gm) 0 ea TOP BID [facility] Last Admin: 10/25/18 17:32 Dose: 1 applic - Labs Labs: 10/25/18 07:02 10/25/18 07:02 PT 14.4 SECONDS (9.7-12.2) H 10/24/18 07:15 INR 1.3 10/24/18 07:15 APTT 37 SECONDS (21-34) H 10/24/18 07:15 Assessment and Plan (1) Hyponatremia Status: Acute (2) HTN (hypertension) Status: Chronic Attending/Attestation - Attestation I have personally seen and examined this patient.: Yes I have fully participated in the care of the patient.: Yes I have reviewed all pertinent clinical information, including history, physical exam and plan: Yes Notes (Text): Patient seen and examined; I agree with the resident's note as above with the following additions/edits: Patient admitted with hyponatremia, currently stable with PO fluid restriction; should continue same (<1.5L daily); Hypokalemia and hypomagnesemia noted, supplemented; nursing staff instructed to run IV mag sulfate at no more than 1g/hr (to avoid renal mag wasting); Otherwise, patient awaiting repeat colonoscopy as part of malignancy workup.
[2018-10-25] MEDS ORDERED: Bisacodyl 5mg EC Tab PO ONE (17:00)
[2018-10-26 05:12] LABS: ALBUMIN (PEP) 2.4 g/dL (3.8-4.8); ALPHA-1-GLOBULIN (PEP) 0.7 g/dL (0.2-0.3)
[2018-10-26] MEDS: Sodium Chloride 0.9% 1,000 ML IV SCH ×2 (06:20→18:15)
--- NOTE | 2018-10-26 06:47 | CP.PCM.DIS ---
Provider - Provider Date of Admission: 10/22/18 16:23 Attending physician: Sushil Goodwin MD Consults: 10/21/18 08:06 Nephrology Consult Routine Comment: Consulting Provider: Robert Nunez Consulting Physician: Robert Nunez Reason for Consult: hyponatremia 10/21/18 10:00 Nursing Referral for Palliative Care Routine Comment: Physician Instructions: Reason For Exam: palliative score 5 10/22/18 19:10 Gastroenterology Consult Routine Comment: Consulting Provider: Edil Bruno Consulting Physician: Edil Bruno Reason for Consult: Possible Pyloric Mass. Please advise. Thank you! 10/22/18 22:11 Wound Care [Nursing Referral for Wound Care] Routine Comment: Physician Instructions: Reason For Exam: Stage II Sacral Ulcer Time Spent in preparation of Discharge (in minutes): 35 Diagnosis - Discharge Diagnosis (1) Diabetes Status: Chronic (2) Parkinson disease Status: Chronic (3) Failure to thrive Status: Chronic (4) Anemia in chronic illness Status: Chronic (5) Hyponatremia Status: Resolved (6) Patella fracture Status: Chronic (7) Weight loss Status: Chronic (8) HTN (hypertension) Status: Chronic Hospital Course - Lab Results Lab Results: Micro Results 10/22/18 11:42 Tick Tick Identification ([facility]) - Final Most Recent Lab Values WBC 8.9 K/uL (4.8-10.8) 10/25/18 07:02 RBC 3.34 Mil/uL (3.80-5.20) L 10/25/18 07:02 Hgb 9.1 g/dL (11.0-16.0) L 10/25/18 07:02 Hct 27.5 % (34.0-47.0) L 10/25/18 07:02 MCV 82.2 fL (81.0-99.0) 10/25/18 07:02 MCH 27.1 pg (27.0-31.0) 10/25/18 07:02 MCHC 33.0 g/dL (33.0-37.0) 10/25/18 07:02 RDW 17.7 % (11.5-14.5) H 10/25/18 07:02 Plt Count 563 K/uL (130-400) H 10/25/18 07:02 MPV 6.8 fL (7.2-11.7) L 10/25/18 07:02 Neut % (Auto) 76.0 % (50.0-75.0) H 10/25/18 07:02 Lymph % (Auto) 13.6 % (20.0-40.0) L 10/25/18 07:02 Mcminn % (Auto) 8.7 % (0.0-10.0) 10/25/18 07:02 Eos % (Auto) 0.8 % (0.0-4.0) 10/25/18 07:02 Baso % (Auto) 0.9 % (0.0-2.0) 10/25/18 07:02 Neut # (Auto) 6.8 K/uL (1.8-7.0) 10/25/18 07:02 Lymph # (Auto) 1.2 K/uL (1.0-4.3) 10/25/18 07:02 Mcminn # (Auto) 0.8 K/uL (0.0-0.8) 10/25/18 07:02 Eos # (Auto) 0.1 K/uL (0.0-0.7) 10/25/18 07:02 Baso # (Auto) 0.1 K/uL (0.0-0.2) 10/25/18 07:02 Differential Comment 10/24/18 07:15 PT 14.4 SECONDS (9.7-12.2) H 10/24/18 07:15 INR 1.3 10/24/18 07:15 APTT 37 SECONDS (21-34) H 10/24/18 07:15 Sodium 133 mmol/L (132-148) 10/25/18 07:02 Potassium 3.2 mmol/L (3.6-5.2) L 10/25/18 07:02 Chloride 95 mmol/L (98-107) L 10/25/18 07:02 Carbon Dioxide 29 mmol/L (22-30) 10/25/18 07:02 Anion Gap 12 (10-20) 10/25/18 07:02 BUN 10 mg/dL (7-17) 10/25/18 07:02 Creatinine 0.4 mg/dL (0.7-1.2) L 10/25/18 07:02 Est GFR ( Amer) > 60 10/25/18 07:02 Est GFR (Non-Af Amer) > 60 10/25/18 07:02 POC Glucose (mg/dL) 116 mg/dL (65-110) H 10/25/18 21:21 Random Glucose 133 mg/dL (65-105) H 10/25/18 07:02 Serum Osmolality 272 mosm/kg (272-300) 10/20/18 22:32 Calcium 8.5 mg/dl (8.6-10.4) L 10/25/18 07:02 Phosphorus 3.8 mg/dL (2.5-4.5) 10/25/18 07:02 Magnesium 1.4 mg/dL (1.6-2.3) L 10/25/18 07:02 Iron < 10 ug/dL (37-170) L 10/23/18 07:04 TIBC 276 ug/dL (250-450) 10/23/18 07:04 % Saturation 3.62 (20-55) L 10/23/18 07:04 Ferritin 452.0 ng/mL 10/22/18 22:05 Total Bilirubin 0.3 mg/dL (0.2-1.3) 10/25/18 07:02 AST 15 U/L (14-36) 10/25/18 07:02 ALT < 6 U/L (9-52) L 10/25/18 07:02 Alkaline Phosphatase 165 U/L (38-126) H 10/25/18 07:02 Total Protein 7.3 g/dL (6.3-8.3) 10/25/18 07:02 Total Protein (PEP) 7.2 g/dL (6.1-8.1) 10/21/18 07:02 Albumin 3.3 g/dL (3.5-5.0) L 10/25/18 07:02 Albumin (PEP) 2.4 g/dL (3.8-4.8) L 10/21/18 07:02 Globulin 4.0 gm/dL (2.2-3.9) H 10/25/18 07:02 Albumin/Globulin Ratio 0.8 (1.0-2.1) L 10/25/18 07:02 Txbjn-6-Kauldmaqf 0.7 g/dL (0.2-0.3) H 10/21/18 07:02 Uyllo-1-Ahpkimcoo 1.1 g/dL (0.5-0.9) H 10/21/18 07:02 Iluu-8-Hqwklpuv 0.5 g/dL (0.4-0.6) 10/21/18 07:02 Fczb-1-Sizpbsue 0.7 g/dL (0.2-0.5) H 10/21/18 07:02 Gamma Globulins 1.8 g/dL (0.8-1.7) H 10/21/18 07:02 Abnorm Protein Band 1 TEST NOT PERFORMED 10/21/18 07:02 Abnorm Protein Band 2 TEST NOT PERFORMED 10/21/18 07:02 Abnorm Protein Band 3 TEST NOT PERFORMED 10/21/18 07:02 Vitamin B12 663 pg/mL (239-931) 10/22/18 22:05 Folate 7.3 ng/mL 10/22/18 22:05 TSH 3rd Generation 1.53 mIU/L (0.46-4.68) 10/20/18 22:00 Cortisol AM Sample 21.9 ug/dL (4.46-22.7) 10/22/18 07:48 Plasma Cortisol PM 13.6 ug/dL (1.7-14.1) 10/20/18 22:00 Urine Osmolality 230 mosm/kg (300-1000) L 10/21/18 18:34 Ur Random Sodium 56 mmol/L 10/21/18 18:34 CECELIA & SPEP Interp See note 10/21/18 07:02 Serum Immunofixation Detected (Not Detected) H 10/21/18 19:39 Tot Minerva/Lambda Ratio 2.11 (1.29-2.55) 10/21/18 19:39 Minerva Light Chain Anal 574 mg/dL (176-443) H 10/21/18 19:39 Lambda Light Chain Anal 272 mg/dL (91-240) H 10/21/18 19:39 - Hospital Course Hospital Course: On admission: HPI: Patient is a 63 yo female w/ PMH of Parkinson's disease, mood disorder, DM2, HLD, and HTN sent from [facility] for hyponatremia on labs. Patient is in rehab for s/p knee fracture occuring on of last year. Patient offers no acute complaints and denies headaches, confusion, n/v. Patient states that her knee gets sore at time but is able to ambulate on flat floors and a couple of steps with her assistive device. 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 Denies fevers, chills, chest pain, sob, n/v, constipation or diarrhea and dysuria. Hospital course: Pt was admitted for hyponatremia. She was also noted to have a stage 3 sacral ulcer on admission, for which concrete wall grinder operator was consulted. Nephrology consulted. Work up showed hypovolemia hyponatremia with some component of SIADH as per Nephro. Pt was given Tolvapan, with hyponatremia improvement. Pt's new medication started in [facility] may have contributed to component of SIADH, it was discontinued. In light of 80 pound weight loss/hyponatremia/anemia of chronic disease pt underwent abdominal/chest/pelvic CT with PO and IV contrast to rule out malignancy. Some antral thickening on CT was noted. Head CT was WNL. GI consulted for Endoscopy, which showed gastritis which was biopsied. She underwent colonoscopy as well, which had no significant findings. Hgb/Hct was stable through hospital course. Her diabetes was well controlled with metformin and ISS. Her HTN was well controlled as well with one antihypertensive medication. Her chronic Parkinson's disease was treated with her regular medications. Her Mg was low multiple times, and it was repleted. Her left knee showed no acute changes during hospital course. PT/OT was consulted for deconditioning. Orthopedic surgery was consulted when some increased swelling was noted, but pt offered no complaints. Knee XR showed possible component of gout and she was started on low dose medication. An appetite stimulator was added due to decreased PO intake and component of failure to thrive, with improved appetite. Pt also noted to have lice during hospital course, placed on contact. Resolution or symptoms after treatment. Pt was transferred to [facility] on 11/03. This is a summary of the hospital course. Please see EMR for full details. WOUND CARE NOTE Re-assessed patients right medial buttocks stage 3 pressure ulcer; continues with pink base with diffuse yellow fibrous islands, scant serous drainage, and no odor. Recommending to continue medihoney/foam dressing to be done every other day, but needs (PRIOR TO APPLYING FOAM DRESSING,) applying skin prep to entire kiley-wound area--(skin surrounding ulcer) as a protective measure against moisture. Recommending foam wedge to continue to optimize offloading. Discharge Exam - Additional Findings Additional findings: - Constitutional Appears: Non-toxic, No Acute Distress, Chronically ill - Head Exam Head Exam: NORMAL INSPECTION, NORMOCEPHALIC - Eye Exam Eye Exam: EOMI, Normal appearance. absent: Nystagmus, Scleral icterus - ENT Exam ENT Exam: Mucous Membranes moist - Respiratory Exam Respiratory Exam: Clear to Auscultation Bilateral, NORMAL BREATHING PATTERN. absent: Rales, Rhonchi, Wheezes - Cardiovascular Exam Cardiovascular Exam: REGULAR RHYTHM, +S1, +S2. absent: Tachycardia - GI/Abdominal Exam GI & Abdominal Exam: Normal Bowel Sounds, Soft. absent: Diminished Bowel Sounds, Distended, Firm, Guarding, Tenderness - Extremities Exam Extremities exam: Positive for: normal inspection. Negative for: calf tenderness, pedal edema Additional comments: Left knee there is immobilizer with scar on medial part of knee; clean incision, no erythema, blood or drainage noted. Nontender on palpation, but with swelling, minimal erythema, some warmth. Some pain on knee extension. - Neurological Exam Neurological exam: Alert, Oriented x3, resting tremor b/l, tardative dyskinesia, cogwheel rigidity. - Psychiatric Exam Psychiatric exam: Flat affect, Normal Mood - Skin Skin Exam: Dry, Intact. Deep brain stimulator (right upper chest wall) wires palpated on right posterior neck: nontender, no signs of infection Discharge Plan - Follow Up Plan Condition: STABLE Disposition: REHAB FACILITY/REHAB UNIT Instructions: Dehydration, Adult (DC), Hyponatremia (DC)
[2018-10-26] MEDS: (Novolin R) Insulin Human Regular 100 units/ml vial SC SCH ×4 (08:10→21:46)
[2018-10-26 08:17] LABS: BASO # 0.1 K/uL (0.0-0.2); BASO % 0.8 % (0.0-2.0); EOS # 0.1 K/uL (0.0-0.7); EOS % 1.1 % (0.0-4.0); LYMPH # 1.3 K/uL (1.0-4.3); LYMPH % 15.8 % (20.0-40.0); MEAN CELL VOLUME 83.4 fL (81.0-99.0); MEAN CORPUSCULAR HGB CONC 31.2 g/dL (33.0-37.0); MEAN PLATELET VOLUME 7.2 fL (7.2-11.7); MONO # 0.8 K/uL (0.0-0.8); MONO % 9.4 % (0.0-10.0); NEUT % 72.9 % (50.0-75.0); RBC 3.47 Mil/uL (3.80-5.20); RED CELL DISTRIBUTION WIDTH 17.3 % (11.5-14.5); WHITE BLOOD COUNT 8.2 K/uL (4.8-10.8)
[2018-10-26 08:38] LABS: ALB/GLOB RATIO 0.8 (1.0-2.1); ALBUMIN 2.9 g/dL (3.5-5.0); ALT/SGPT 11 U/L (9-52); AST/SGOT 16 U/L (14-36); BLOOD UREA NITROGEN 9 mg/dL (7-17); CALCIUM 8.2 mg/dl (8.6-10.4); GFR NON-AFRICAN AMERICAN > 60
[2018-10-26] MEDS ORDERED: Magnesium Sulfate 1 gm in D5W 1 GM/100 ML BAG IVPB ONE (10:00)
[2018-10-26] MEDS ORDERED: Propofol 10 mg/ml Inj (20 ML) ONE (10:00)
[2018-10-26] MEDS ORDERED: Potassium Chloride 20 mEq ER Tab PO ONE (10:00)
[2018-10-26] MEDS ORDERED: Lactated Ringer's 500 ML IV ONE (10:03)
--- NOTE | 2018-10-26 10:31 | CP.PCM.PN ---
Subjective - Date & Time of Evaluation Date of Evaluation: 10/26/18 Time of Evaluation: 10:29 - Subjective Subjective: Colonoscopy to cecum: With lavage all landmarks were adequately visulaized. See full report. No masses, polyps. Sigmoid diverticvulosis Internal hemorrhoids/engorged. Rec/ Colace bid Agree with discharge plans Resume previous ADA, AHA diet. Recall as needed Thank you. Objective - Vital Signs/Intake and Output Vital Signs (last 24 hours): Temp Pulse Resp BP Pulse Ox 98.5 F 109 H 20 137/56 L 100 10/26/18 10:05 10/26/18 10:05 10/26/18 10:05 10/26/18 10:05 10/26/18 10:05 Intake and Output: 10/26/18 10/26/18 06:59 18:59 Intake Total 4200 Output Total 8 Balance 4192 - Medications Medications: Current Medications Acetaminophen (Tylenol 325mg Tab) 650 mg PO Q4H PRN PRN Reason: Pain, Mild (1-3) Amantadine HCl (Amantadine 100 Mg Cap) 100 mg PO BID [facility] Last Admin: 10/25/18 17:35 Dose: 100 mg Amlodipine Besylate (Norvasc) 2.5 mg PO DAILY [facility] Last Admin: 10/25/18 09:13 Dose: 2.5 mg Carbidopa/Levodopa (Sinemet) 1 tab PO BID [facility] Last Admin: 10/25/18 17:35 Dose: 1 tab Carbidopa/Levodopa (Sinemet) 1 tab PO DAILY@1200 [facility] Last Admin: 10/25/18 12:00 Dose: 1 tab Carbidopa/Levodopa (Sinemet) 1 tab PO QNOON [facility] Last Admin: 10/25/18 12:02 Dose: 1 tab Carbidopa/Levodopa (Sinemet Cr) 2 tab PO 0800 [facility] Last Admin: 10/25/18 09:00 Dose: 2 tab Clotrimazole (Lotrimin 1%) 0 gm TOP BID [facility] Last Admin: 10/25/18 17:32 Dose: 1 applic Dextrose (Dextrose 50% Inj) 0 ml IV STAT PRN; Protocol PRN Reason: Hypoglycemia Protocol Dextrose (Glutose 15) 0 gm PO ONCE PRN; Protocol PRN Reason: Hypoglycemia Protocol Docusate Sodium (Colace) 100 mg PO TID [facility] Last Admin: 10/25/18 17:35 Dose: 100 mg Docusate Sodium (Colace) 100 mg PO BID [facility] Ferrous Sulfate (Feosol) 325 mg PO DAILY [facility] Last Admin: 10/23/18 09:15 Dose: 325 mg Glucagon (Glucagen Diagnostic Kit) 0 mg IM STAT PRN; Protocol PRN Reason: Hypoglycemia Protocol Heparin Sodium (Porcine) (Heparin) 5,000 units SC Q12 [facility] Last Admin: 10/25/18 21:12 Dose: 5,000 units Home Med (Patient's Own Medication) 1 tab PO DAILY [facility] Last Admin: 10/25/18 09:15 Dose: 1 tab Dextrose (Dextrose 5% In Water 1000 Ml) 1,000 mls @ 0 mls/hr IV .Q0M PRN; Protocol PRN Reason: Hypoglycemia Protocol Sodium Chloride (Sodium Chloride 0.9%) 1,000 mls @ 75 mls/hr IV .[id number] [facility] Last Admin: 10/26/18 06:20 Dose: Not Given Insulin Human Regular (Novolin R) 0 unit SC ACHS [facility]; Protocol Last Admin: 10/26/18 08:10 Dose: Not Given Metformin HCl (Glucophage) 500 mg PO DAILY [facility] Last Admin: 10/25/18 09:14 Dose: Not Given Pantoprazole Sodium (Protonix Ec Tab) 40 mg PO DAILY [facility] Last Admin: 10/25/18 09:13 Dose: 40 mg Permethrin (Nix Complete Lice Elimination Kit 1%) 59 ml TOP ONCE ONE Stop: 10/29/18 08:01 Potassium Chloride (K-Dur 20 Meq Er Tab) 20 meq PO Q2H [facility] Stop: 10/26/18 14:16 Rosuvastatin Calcium (Crestor) 5 mg PO HS [facility] Last Admin: 10/25/18 21:11 Dose: 5 mg Silver Sulfadiazine (Silvadene 1% 20 Gm) 0 ea TOP BID [facility] Last Admin: 10/25/18 17:32 Dose: 1 applic - Labs Labs: 10/26/18 08:08 10/26/18 08:08 PT 14.4 SECONDS (9.7-12.2) H 10/24/18 07:15 INR 1.3 10/24/18 07:15 APTT 37 SECONDS (21-34) H 10/24/18 07:15 Assessment and Plan (1) Abnormal CT scan, stomach Status: Acute (2) Microcytic anemia Status: Acute (3) Weight loss Status: Acute
[2018-10-26] MEDS: Carbidopa/Levodopa 25/100 CR PO SCH (10:32)
[2018-10-26] MEDS: Potassium Chloride 20 mEq ER Tab PO SCH ×3 (11:14→15:46)
[2018-10-26] MEDS: Pantoprazole 40 mg EC Tab PO SCH (11:14)
[2018-10-26] MEDS: ROPINIROLE 2 MG PO SCH (11:15)
[2018-10-26] MEDS: Clotrimazole 1% Cream(30 gm) TOP SCH ×2 (11:25→21:19)
[2018-10-26] MEDS: Silver Sulfadiazine 1% Cream (20 gm) TOP SCH ×2 (11:25→21:19)
[2018-10-26] MEDS: CARBIDOPA PO SCH (12:56)
[2018-10-26] MEDS: LEVODOPA PO SCH (12:56)
--- NOTE | 2018-10-26 16:20 | CP.PCM.PN ---
<Denton Jackson - Last Filed: 10/26/18 16:20> Subjective - Date & Time of Evaluation Date of Evaluation: 10/26/18 Time of Evaluation: 06:00 - Subjective Subjective: Patient seen and evaluated bedside. No complaints, patient aware she is going for colonoscopy later today. Objective - Vital Signs/Intake and Output Vital Signs (last 24 hours): Temp Pulse Resp BP Pulse Ox 98.5 F 97 H 23 124/60 97 10/26/18 10:25 10/26/18 10:55 10/26/18 10:55 10/26/18 10:55 10/26/18 10:55 Intake and Output: 10/26/18 10/26/18 06:59 18:59 Intake Total 4200 740 Output Total 8 Balance 4192 740 - Medications Medications: Current Medications Acetaminophen (Tylenol 325mg Tab) 650 mg PO Q4H PRN PRN Reason: Pain, Mild (1-3) Amantadine HCl (Amantadine 100 Mg Cap) 100 mg PO BID [facility] Last Admin: 10/26/18 11:15 Dose: 100 mg Amlodipine Besylate (Norvasc) 2.5 mg PO DAILY [facility] Last Admin: 10/26/18 11:14 Dose: 2.5 mg Carbidopa/Levodopa (Sinemet) 1 tab PO BID [facility] Last Admin: 10/26/18 11:14 Dose: 1 tab Carbidopa/Levodopa (Sinemet) 1 tab PO DAILY@1200 [facility] Last Admin: 10/26/18 12:56 Dose: 1 tab Carbidopa/Levodopa (Sinemet) 1 tab PO QNOON [facility] Last Admin: 10/26/18 12:56 Dose: Not Given Carbidopa/Levodopa (Sinemet Cr) 2 tab PO 0800 [facility] Last Admin: 10/26/18 10:32 Dose: Not Given Clotrimazole (Lotrimin 1%) 0 gm TOP BID [facility] Last Admin: 10/26/18 11:25 Dose: 1 applic Dextrose (Dextrose 50% Inj) 0 ml IV STAT PRN; Protocol PRN Reason: Hypoglycemia Protocol Dextrose (Glutose 15) 0 gm PO ONCE PRN; Protocol PRN Reason: Hypoglycemia Protocol Docusate Sodium (Colace) 100 mg PO TID [facility] Last Admin: 10/26/18 15:46 Dose: Not Given Docusate Sodium (Colace) 100 mg PO BID [facility] Ferrous Sulfate (Feosol) 325 mg PO DAILY [facility] Last Admin: 10/26/18 11:13 Dose: 325 mg Glucagon (Glucagen Diagnostic Kit) 0 mg IM STAT PRN; Protocol PRN Reason: Hypoglycemia Protocol Heparin Sodium (Porcine) (Heparin) 5,000 units SC Q12 [facility] Last Admin: 10/25/18 21:12 Dose: 5,000 units Home Med (Patient's Own Medication) 1 tab PO DAILY [facility] Last Admin: 10/26/18 11:15 Dose: 1 tab Dextrose (Dextrose 5% In Water 1000 Ml) 1,000 mls @ 0 mls/hr IV .Q0M PRN; Protocol PRN Reason: Hypoglycemia Protocol Sodium Chloride (Sodium Chloride 0.9%) 1,000 mls @ 75 mls/hr IV .[id number] [facility] Last Admin: 10/26/18 06:20 Dose: Not Given Insulin Human Regular (Novolin R) 0 unit SC ACHS [facility]; Protocol Last Admin: 10/26/18 12:12 Dose: Not Given Metformin HCl (Glucophage) 500 mg PO DAILY [facility] Last Admin: 10/26/18 11:15 Dose: Not Given Pantoprazole Sodium (Protonix Ec Tab) 40 mg PO DAILY [facility] Last Admin: 10/26/18 11:14 Dose: 40 mg Permethrin (Nix Complete Lice Elimination Kit 1%) 59 ml TOP ONCE ONE Stop: 10/29/18 08:01 Rosuvastatin Calcium (Crestor) 5 mg PO HS [facility] Last Admin: 10/25/18 21:11 Dose: 5 mg Silver Sulfadiazine (Silvadene 1% 20 Gm) 0 ea TOP BID [facility] Last Admin: 10/26/18 11:25 Dose: 1 applic - Labs Labs: 10/26/18 08:08 10/26/18 08:08 PT 14.4 SECONDS (9.7-12.2) H 10/24/18 07:15 INR 1.3 10/24/18 07:15 APTT 37 SECONDS (21-34) H 10/24/18 07:15 - Eye Exam Eye Exam: Normal appearance - ENT Exam ENT Exam: Mucous Membranes Moist - Respiratory Exam Respiratory Exam: Clear to Ausculation Bilateral, NORMAL BREATHING PATTERN - Cardiovascular Exam Cardiovascular Exam: REGULAR RHYTHM Assessment and Plan - Assessment and Plan (Free Text) Plan: (1) Hyponatremia Assessment and Plan: -Na 136 -given tolvaptan 15 mg 4 days ago; will re-dose as needed -continue PO fluid restriction (<1500 cc/day) -avoid NSAIDS for pain (can potentiate the effect of ADH) -ensure adequate pain control -malignancy workup for possible cause of SIADH -EGD done in AM showing antral gastritis with prepyloric folds, no mass. Also showing hiatal hernia -colonoscopy done in AM with poor bowl prep, will repeat in AM today Status: Acute (2) HTN (hypertension) Assessment and Plan: -Amlodipine 2.5mg continue Status: Chronic (3) Hypokalemia Assessment and Plan: -K 3.1, repleted continue to monitor Status: Acute <Robert Nunez - Last Filed: 10/27/18 08:06> Objective - Vital Signs/Intake and Output Vital Signs (last 24 hours): Temp Pulse Resp BP Pulse Ox 98.1 F 99 H 20 138/73 96 10/27/18 00:00 10/27/18 00:00 10/27/18 00:00 10/27/18 00:00 10/27/18 00:00 Intake and Output: 10/27/18 10/27/18 06:59 18:59 Intake Total 1100 800 Balance 1100 800 - Medications Medications: Current Medications Acetaminophen (Tylenol 325mg Tab) 650 mg PO Q4H PRN PRN Reason: Pain, Mild (1-3) Amantadine HCl (Amantadine 100 Mg Cap) 100 mg PO BID [facility] Last Admin: 10/26/18 17:49 Dose: 100 mg Amlodipine Besylate (Norvasc) 2.5 mg PO DAILY [facility] Last Admin: 10/26/18 11:14 Dose: 2.5 mg Carbidopa/Levodopa (Sinemet) 1 tab PO BID [facility] Last Admin: 10/26/18 17:49 Dose: 1 tab Carbidopa/Levodopa (Sinemet) 1 tab PO DAILY@1200 [facility] Last Admin: 10/26/18 12:56 Dose: 1 tab Carbidopa/Levodopa (Sinemet) 1 tab PO QNOON [facility] Last Admin: 10/26/18 12:56 Dose: Not Given Carbidopa/Levodopa (Sinemet Cr) 2 tab PO 0800 [facility] Last Admin: 10/26/18 10:32 Dose: Not Given Clotrimazole (Lotrimin 1%) 0 gm TOP BID [facility] Last Admin: 10/26/18 21:19 Dose: 1 applic Dextrose (Dextrose 50% Inj) 0 ml IV STAT PRN; Protocol PRN Reason: Hypoglycemia Protocol Dextrose (Glutose 15) 0 gm PO ONCE PRN; Protocol PRN Reason: Hypoglycemia Protocol Docusate Sodium (Colace) 100 mg PO TID [facility] Last Admin: 10/26/18 17:48 Dose: 100 mg Docusate Sodium (Colace) 100 mg PO BID [facility] Last Admin: 10/26/18 18:00 Dose: Not Given Ferrous Sulfate (Feosol) 325 mg PO DAILY [facility] Last Admin: 10/26/18 11:13 Dose: 325 mg Glucagon (Glucagen Diagnostic Kit) 0 mg IM STAT PRN; Protocol PRN Reason: Hypoglycemia Protocol Heparin Sodium (Porcine) (Heparin) 5,000 units SC Q8 [facility] Last Admin: 10/27/18 05:09 Dose: 5,000 units Home Med (Patient's Own Medication) 1 tab PO DAILY [facility] Last Admin: 10/26/18 11:15 Dose: 1 tab Dextrose (Dextrose 5% In Water 1000 Ml) 1,000 mls @ 0 mls/hr IV .Q0M PRN; Protocol PRN Reason: Hypoglycemia Protocol Sodium Chloride (Sodium Chloride 0.9%) 1,000 mls @ 75 mls/hr IV .[id number] [facility] Last Admin: 10/27/18 05:51 Dose: 75 mls/hr Insulin Human Regular (Novolin R) 0 unit SC ACHS [facility]; Protocol Last Admin: 10/27/18 07:19 Dose: Not Given Metformin HCl (Glucophage) 500 mg PO DAILY [facility] Last Admin: 10/26/18 11:15 Dose: Not Given Pantoprazole Sodium (Protonix Ec Tab) 40 mg PO DAILY [facility] Last Admin: 10/26/18 11:14 Dose: 40 mg Permethrin (Nix Complete Lice Elimination Kit 1%) 59 ml TOP ONCE ONE Stop: 10/29/18 08:01 Rosuvastatin Calcium (Crestor) 5 mg PO HS [facility] Last Admin: 10/26/18 21:15 Dose: 5 mg Silver Sulfadiazine (Silvadene 1% 20 Gm) 0 ea TOP BID [facility] Last Admin: 10/26/18 21:19 Dose: 1 applic - Labs Labs: 10/26/18 08:08 10/26/18 08:08 PT 14.4 SECONDS (9.7-12.2) H 10/24/18 07:15 INR 1.3 10/24/18 07:15 APTT 37 SECONDS (21-34) H 10/24/18 07:15 Assessment and Plan (1) Hyponatremia Status: Acute (2) HTN (hypertension) Status: Chronic Attending/Attestation - Attestation I have personally seen and examined this patient.: Yes I have fully participated in the care of the patient.: Yes I have reviewed all pertinent clinical information, including history, physical exam and plan: Yes Notes (Text): Patient not seen by me today; agree with repletion of K; hyponatremia improved and stable on PO fluid restriction, should continue same.
--- NOTE | 2018-10-26 17:13 | CP.PCM.PN ---
<Ray Shelby - Last Filed: 10/26/18 17:16> Subjective - Date & Time of Evaluation Date of Evaluation: 10/26/18 Time of Evaluation: 11:00 - Subjective Subjective: PGY1 Medicine progress note for Dr. Soto Patient seen and examined at bedside and in no acute distress. Patient has no acute complaints. She complains of chronic fatigue. Patient denies chest pain, shortness of breath, abdominal pain, nausea, vomiting, constipation, or diarrhea, numbness or tingling, headaches, dizziness. Pt returned from colonoscopy, which as well tolerated. Objective - Vital Signs/Intake and Output Vital Signs (last 24 hours): Temp Pulse Resp BP Pulse Ox 98.5 F 97 H 23 124/60 97 10/26/18 10:25 10/26/18 10:55 10/26/18 10:55 10/26/18 10:55 10/26/18 10:55 Intake and Output: 10/26/18 10/26/18 06:59 18:59 Intake Total 4200 740 Output Total 8 Balance 4192 740 - Medications Medications: Current Medications Acetaminophen (Tylenol 325mg Tab) 650 mg PO Q4H PRN PRN Reason: Pain, Mild (1-3) Amantadine HCl (Amantadine 100 Mg Cap) 100 mg PO BID [facility] Last Admin: 10/26/18 11:15 Dose: 100 mg Amlodipine Besylate (Norvasc) 2.5 mg PO DAILY [facility] Last Admin: 10/26/18 11:14 Dose: 2.5 mg Carbidopa/Levodopa (Sinemet) 1 tab PO BID [facility] Last Admin: 10/26/18 11:14 Dose: 1 tab Carbidopa/Levodopa (Sinemet) 1 tab PO DAILY@1200 [facility] Last Admin: 10/26/18 12:56 Dose: 1 tab Carbidopa/Levodopa (Sinemet) 1 tab PO QNOON [facility] Last Admin: 10/26/18 12:56 Dose: Not Given Carbidopa/Levodopa (Sinemet Cr) 2 tab PO 0800 [facility] Last Admin: 10/26/18 10:32 Dose: Not Given Clotrimazole (Lotrimin 1%) 0 gm TOP BID [facility] Last Admin: 10/26/18 11:25 Dose: 1 applic Dextrose (Dextrose 50% Inj) 0 ml IV STAT PRN; Protocol PRN Reason: Hypoglycemia Protocol Dextrose (Glutose 15) 0 gm PO ONCE PRN; Protocol PRN Reason: Hypoglycemia Protocol Docusate Sodium (Colace) 100 mg PO TID [facility] Last Admin: 10/26/18 15:46 Dose: Not Given Docusate Sodium (Colace) 100 mg PO BID [facility] Ferrous Sulfate (Feosol) 325 mg PO DAILY [facility] Last Admin: 10/26/18 11:13 Dose: 325 mg Glucagon (Glucagen Diagnostic Kit) 0 mg IM STAT PRN; Protocol PRN Reason: Hypoglycemia Protocol Heparin Sodium (Porcine) (Heparin) 5,000 units SC Q12 [facility] Last Admin: 10/25/18 21:12 Dose: 5,000 units Home Med (Patient's Own Medication) 1 tab PO DAILY [facility] Last Admin: 10/26/18 11:15 Dose: 1 tab Dextrose (Dextrose 5% In Water 1000 Ml) 1,000 mls @ 0 mls/hr IV .Q0M PRN; Protocol PRN Reason: Hypoglycemia Protocol Sodium Chloride (Sodium Chloride 0.9%) 1,000 mls @ 75 mls/hr IV .[id number] [facility] Last Admin: 10/26/18 06:20 Dose: Not Given Insulin Human Regular (Novolin R) 0 unit SC ACHS [facility]; Protocol Last Admin: 10/26/18 12:12 Dose: Not Given Metformin HCl (Glucophage) 500 mg PO DAILY [facility] Last Admin: 10/26/18 11:15 Dose: Not Given Pantoprazole Sodium (Protonix Ec Tab) 40 mg PO DAILY [facility] Last Admin: 10/26/18 11:14 Dose: 40 mg Permethrin (Nix Complete Lice Elimination Kit 1%) 59 ml TOP ONCE ONE Stop: 10/29/18 08:01 Rosuvastatin Calcium (Crestor) 5 mg PO HS [facility] Last Admin: 10/25/18 21:11 Dose: 5 mg Silver Sulfadiazine (Silvadene 1% 20 Gm) 0 ea TOP BID [facility] Last Admin: 10/26/18 11:25 Dose: 1 applic - Labs Labs: 10/26/18 08:08 10/26/18 08:08 PT 14.4 SECONDS (9.7-12.2) H 10/24/18 07:15 INR 1.3 10/24/18 07:15 APTT 37 SECONDS (21-34) H 10/24/18 07:15 - Additional Findings Additional findings: - Constitutional Appears: Non-toxic, No Acute Distress - Head Exam Head Exam: NORMAL INSPECTION, NORMOCEPHALIC - Eye Exam Eye Exam: EOMI, Normal appearance. absent: Nystagmus, Scleral icterus - ENT Exam ENT Exam: Mucous Membranes Dry - Respiratory Exam Respiratory Exam: Clear to Auscultation Bilateral, NORMAL BREATHING PATTERN. absent: Rales, Rhonchi, Wheezes - Cardiovascular Exam Cardiovascular Exam: REGULAR RHYTHM, +S1, +S2. absent: Tachycardia - GI/Abdominal Exam GI & Abdominal Exam: Normal Bowel Sounds, Soft. absent: Diminished Bowel Sounds, Distended, Firm, Guarding, Tenderness - Extremities Exam Extremities exam: Positive for: normal inspection. Negative for: calf tenderness, pedal edema Additional comments: Left knee there is immobilizer with scar on medial part of knee; clean incision, no erythema, blood or drainage noted. Remains nontender on palpation, but with swelling, minimal erythema. Some pain on knee extension. - Neurological Exam Neurological exam: Alert, Oriented x3, resting tremor b/l, tardive dyskinesia, cogwheel rigidity. 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 5/5 strength in upper and lower extremities. - Psychiatric Exam Psychiatric exam: Flat affect, Normal Mood - Skin Skin Exam: Dry, Intact. Deep brain stimulator wires palpated on right posterior neck: nontender, no signs of infection Assessment and Plan - Assessment and Plan (Free Text) Assessment: Patient is a 63 yo female w/ PMH Parkinson's disease, mood disorder, DM2, HLD, and HTN sent from [facility] for abnormal labs. Plan: Electrolyte Disturbances Hyponatremia- resolved. Likely hypovolemic hyponatremia with component of hyperglycemia. 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 Na is stable at 136. S/p Tolvaptan 15 mg PO. Hypomagnesemia at 1.6 repleted with Mg 1g IVPB Hypokalemia of 3.1 repleted with Kdur 20 meq q2h x3 doses Nephro consulted, Dr. Nunez. Recommendations appreciated Serum osm 277. Urine osm: 230, urine random sodium: 56 Depakote sprinles discontinued 10/24/18 Weight Loss, with anemia/hyponatremia; r/o malignancy vs worsening of PD 80 lb weight loss as per pt/ over [address] w/o (2/9/19) : age related degenerative changes are identified as well as neural stimulator the right basal ganglia as discussed above. No intracranial hemorrhage, mass effect or cortical edema pattern identified. CT Chest, Abd, Pelvis with po and IV contrast (10/22/18): 1. no pulmonary mass or significant lymphadenopathy. mild cardiomegaly. potential pulmonary artery hypertension 2. possible constipation 3. possible antritis or mass affecting pylorus. gi consult advised 4. prior hysterectomy GI, Dr. Bruno consulted, help appreciated. Pt will go for EGD today, potentially colonoscopy with inpatient as well. F/u protein electrophoresis, serum immunofixation, [place]/[facility] Anemia of chronic disease or iron deficiency anemia with acute phase reactant elevation H/H is stable Iron <10, TIBC normal (276), %sat 3.62. Ferritin high (452) may be due to acute phase reactant No indication for transfusion at this time Upper endoscopy was well tolerated 10/24/18 Gastritis: biopsied. Small hiatal hernia. No mass. Normal duodenum. Lower endoscopy to the cecum was well tolerated 10/26/18 Diverticulosis in the sigmoid colon. Nonbleeding internal hemorrhoids. Otherwise normal. No repeat colonoscopy due to age. Parkinson's disease Of note, pt has deep brain stimulator implanted for parkinson's disease implanted in June 2018. Dr. Ramirez Carbidopa/Levodopa 25-100mg 1 tab at 10am, 1.5 tabs at 12pm and 1 tab at 6 pm Carbidopa/Levodopa 50-200mg 1 tab po daily at 8am Amantadine 100mg po bid Ropinirole 2mg (pt's own) po daily Hx of Mood Disorder/BPD Pt states that the depakote was started at rehab, and not by her PMD. Case discu ssed with PMD (Dr. Ian Ugarte), who reports pt has no history of seizures, mood disorder, or prescribing the mediation. 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 Bobby Petit as per pt Tylenol PRN for pain Oxycodone 1 tab po q12h prn Knee immobilizer in place PT/OT evaluation, with plan for home PT or further rehab treatment at [facility] in [place] HTN Amlodipine 10mg po daily Constipation Colace 100mg po TID Head lice Identification of body louse on path Pt reports symptoms improving Patient to be treated with Permethrin 1% repeat on 10/29/18 Continue contact precautions Prophylaxis SCDs, will hold morning heparin dose for colonoscopy tomorrow morning No GI prophylaxis indicated at this time Dispo: SW evaluation for discharge home with services. Pending authorization. Case discussed with Dr. Charles Shelby PGY1 <Zain Soto - Last Filed: 10/27/18 09:04> Objective - Vital Signs/Intake and Output Vital Signs (last 24 hours): Temp Pulse Resp BP Pulse Ox 97.8 F 89 20 147/77 98 10/27/18 08:34 10/27/18 08:34 10/27/18 08:34 10/27/18 08:34 10/27/18 08:34 Intake and Output: 10/27/18 10/27/18 06:59 18:59 Intake Total 1100 800 Balance 1100 800 - Medications Medications: Current Medications Acetaminophen (Tylenol 325mg Tab) 650 mg PO Q4H PRN PRN Reason: Pain, Mild (1-3) Amantadine HCl (Amantadine 100 Mg Cap) 100 mg PO BID [facility] Last Admin: 10/26/18 17:49 Dose: 100 mg Amlodipine Besylate (Norvasc) 2.5 mg PO DAILY [facility] Last Admin: 10/26/18 11:14 Dose: 2.5 mg Carbidopa/Levodopa (Sinemet) 1 tab PO BID [facility] Last Admin: 10/26/18 17:49 Dose: 1 tab Carbidopa/Levodopa (Sinemet) 1 tab PO DAILY@1200 [facility] Last Admin: 10/26/18 12:56 Dose: 1 tab Carbidopa/Levodopa (Sinemet) 1 tab PO QNOON [facility] Last Admin: 10/26/18 12:56 Dose: Not Given Carbidopa/Levodopa (Sinemet Cr) 2 tab PO 0800 [facility] Last Admin: 10/26/18 10:32 Dose: Not Given Clotrimazole (Lotrimin 1%) 0 gm TOP BID [facility] Last Admin: 10/26/18 21:19 Dose: 1 applic Dextrose (Dextrose 50% Inj) 0 ml IV STAT PRN; Protocol PRN Reason: Hypoglycemia Protocol Dextrose (Glutose 15) 0 gm PO ONCE PRN; Protocol PRN Reason: Hypoglycemia Protocol Docusate Sodium (Colace) 100 mg PO TID [facility] Last Admin: 10/26/18 17:48 Dose: 100 mg Docusate Sodium (Colace) 100 mg PO BID [facility] Last Admin: 10/26/18 18:00 Dose: Not Given Ferrous Sulfate (Feosol) 325 mg PO DAILY [facility] Last Admin: 10/26/18 11:13 Dose: 325 mg Glucagon (Glucagen Diagnostic Kit) 0 mg IM STAT PRN; Protocol PRN Reason: Hypoglycemia Protocol Heparin Sodium (Porcine) (Heparin) 5,000 units SC Q8 [facility] Last Admin: 10/27/18 05:09 Dose: 5,000 units Home Med (Patient's Own Medication) 1 tab PO DAILY [facility] Last Admin: 10/26/18 11:15 Dose: 1 tab Dextrose (Dextrose 5% In Water 1000 Ml) 1,000 mls @ 0 mls/hr IV .Q0M PRN; Protocol PRN Reason: Hypoglycemia Protocol Sodium Chloride (Sodium Chloride 0.9%) 1,000 mls @ 75 mls/hr IV .[id number] [facility] Last Admin: 10/27/18 05:51 Dose: 75 mls/hr Insulin Human Regular (Novolin R) 0 unit SC ACHS [facility]; Protocol Last Admin: 10/27/18 07:19 Dose: Not Given Metformin HCl (Glucophage) 500 mg PO DAILY [facility] Last Admin: 10/26/18 11:15 Dose: Not Given Pantoprazole Sodium (Protonix Ec Tab) 40 mg PO DAILY [facility] Last Admin: 10/26/18 11:14 Dose: 40 mg Permethrin (Nix Complete Lice Elimination Kit 1%) 59 ml TOP ONCE ONE Stop: 10/29/18 08:01 Rosuvastatin Calcium (Crestor) 5 mg PO HS [facility] Last Admin: 10/26/18 21:15 Dose: 5 mg Silver Sulfadiazine (Silvadene 1% 20 Gm) 0 ea TOP BID [facility] Last Admin: 10/26/18 21:19 Dose: 1 applic - Labs Labs: 10/27/18 08:07 10/27/18 08:07 PT 14.4 SECONDS (9.7-12.2) H 10/24/18 07:15 INR 1.3 10/24/18 07:15 APTT 37 SECONDS (21-34) H 10/24/18 07:15 Attending/Attestation - Attestation I have personally seen and examined this patient.: Yes I have fully participated in the care of the patient.: Yes I have reviewed all pertinent clinical information, including history, physical exam and plan: Yes
[2018-10-26] MEDS ORDERED: Potassium Chloride 20 mEq ER Tab PO STA (18:12)
[2018-10-27] MEDS: Sodium Chloride 0.9% 1,000 ML IV SCH ×2 (05:51→09:04)
[2018-10-27] MEDS: (Novolin R) Insulin Human Regular 100 units/ml vial SC SCH ×4 (07:19→22:29)
[2018-10-27 08:22] LABS: BASO % 0.6 % (0.0-2.0); EOS # 0.1 K/uL (0.0-0.7); EOS % 1.4 % (0.0-4.0); HEMOGLOBIN 9.2 g/dL (11.0-16.0); LYMPH # 1.3 K/uL (1.0-4.3); LYMPH % 16.8 % (20.0-40.0); MEAN CELL VOLUME 83.3 fL (81.0-99.0); MEAN CORPUSCULAR HEMOGLOBIN 26.3 pg (27.0-31.0); MEAN CORPUSCULAR HGB CONC 31.6 g/dL (33.0-37.0); MONO # 0.8 K/uL (0.0-0.8); MONO % 10.4 % (0.0-10.0); NEUT # 5.3 K/uL (1.8-7.0); NEUT % 70.8 % (50.0-75.0); RBC 3.5 Mil/uL (3.80-5.20); WHITE BLOOD COUNT 7.5 K/uL (4.8-10.8)
[2018-10-27 08:51] LABS: ALB/GLOB RATIO 0.8 (1.0-2.1); ALT/SGPT 8 U/L (9-52); AST/SGOT 18 U/L (14-36); BLOOD UREA NITROGEN 5 mg/dL (7-17); CALCIUM 8.4 mg/dl (8.6-10.4); GFR NON-AFRICAN AMERICAN > 60
[2018-10-27] MEDS: ROPINIROLE 2 MG PO SCH (09:01)
[2018-10-27] MEDS: Carbidopa/Levodopa 25/100 CR PO SCH (09:02)
[2018-10-27] MEDS: Pantoprazole 40 mg EC Tab PO SCH (09:02)
[2018-10-27] MEDS: Clotrimazole 1% Cream(30 gm) TOP SCH ×2 (09:05→18:29)
[2018-10-27] MEDS: Silver Sulfadiazine 1% Cream (20 gm) TOP SCH ×2 (09:05→18:29)
[2018-10-27] MEDS: Magnesium Sulfate 1 gm in D5W 1 GM/100 ML BAG IVPB SCH ×2 (12:09→12:56)
[2018-10-27] MEDS: CARBIDOPA PO SCH (12:57)
[2018-10-27] MEDS: LEVODOPA PO SCH (12:57)
--- NOTE | 2018-10-27 17:28 | CP.PCM.PN ---
<Ray Shelby - Last Filed: 10/27/18 17:24> Subjective - Date & Time of Evaluation Date of Evaluation: 10/27/18 Time of Evaluation: 09:20 - Subjective Subjective: PGY1 Medicine progress note for Dr. Soto Patient seen and examined at bedside and in no acute distress. Patient has no acute complaints. She reports that she feels better and is in a visibly better mood. Patient denies chest pain, shortness of breath, abdominal pain, nausea, vomiting, constipation, or diarrhea, numbness or tingling, headaches, dizziness. Objective - Vital Signs/Intake and Output Vital Signs (last 24 hours): Temp Pulse Resp BP Pulse Ox 98.6 F 101 H 20 130/66 97 10/27/18 16:00 10/27/18 16:00 10/27/18 16:00 10/27/18 16:00 10/27/18 16:00 Intake and Output: 10/27/18 10/27/18 06:59 18:59 Intake Total 1100 1600 Balance 1100 1600 - Medications Medications: Current Medications Acetaminophen (Tylenol 325mg Tab) 650 mg PO Q4H PRN PRN Reason: Pain, Mild (1-3) Amantadine HCl (Amantadine 100 Mg Cap) 100 mg PO BID [facility] Last Admin: 10/27/18 09:02 Dose: 100 mg Amlodipine Besylate (Norvasc) 2.5 mg PO DAILY [facility] Last Admin: 10/27/18 09:03 Dose: 2.5 mg Carbidopa/Levodopa (Sinemet) 1 tab PO BID [facility] Last Admin: 10/27/18 09:02 Dose: 1 tab Carbidopa/Levodopa (Sinemet) 1 tab PO DAILY@1200 [facility] Last Admin: 10/27/18 12:10 Dose: 1 tab Carbidopa/Levodopa (Sinemet) 1 tab PO QNOON [facility] Last Admin: 10/27/18 12:57 Dose: 1 tab Carbidopa/Levodopa (Sinemet Cr) 2 tab PO 0800 [facility] Last Admin: 10/27/18 09:02 Dose: 2 tab Clotrimazole (Lotrimin 1%) 0 gm TOP BID [facility] Last Admin: 10/27/18 09:05 Dose: 1 applic Dextrose (Dextrose 50% Inj) 0 ml IV STAT PRN; Protocol PRN Reason: Hypoglycemia Protocol Dextrose (Glutose 15) 0 gm PO ONCE PRN; Protocol PRN Reason: Hypoglycemia Protocol Docusate Sodium (Colace) 100 mg PO TID [facility] Last Admin: 10/27/18 13:02 Dose: 100 mg Docusate Sodium (Colace) 100 mg PO BID [facility] Last Admin: 10/27/18 09:03 Dose: 100 mg Ferrous Sulfate (Feosol) 325 mg PO DAILY [facility] Last Admin: 10/27/18 09:03 Dose: 325 mg Glucagon (Glucagen Diagnostic Kit) 0 mg IM STAT PRN; Protocol PRN Reason: Hypoglycemia Protocol Heparin Sodium (Porcine) (Heparin) 5,000 units SC Q8 [facility] Last Admin: 10/27/18 13:02 Dose: 5,000 units Home Med (Patient's Own Medication) 1 tab PO DAILY [facility] Last Admin: 10/27/18 09:01 Dose: 1 tab Dextrose (Dextrose 5% In Water 1000 Ml) 1,000 mls @ 0 mls/hr IV .Q0M PRN; Protocol PRN Reason: Hypoglycemia Protocol Insulin Human Regular (Novolin R) 0 unit SC ACHS [facility]; Protocol Last Admin: 10/27/18 11:56 Dose: Not Given Metformin HCl (Glucophage) 500 mg PO DAILY [facility] Last Admin: 10/27/18 09:03 Dose: 500 mg Pantoprazole Sodium (Protonix Ec Tab) 40 mg PO DAILY [facility] Last Admin: 10/27/18 09:02 Dose: 40 mg Permethrin (Nix Complete Lice Elimination Kit 1%) 59 ml TOP ONCE ONE Stop: 10/29/18 08:01 Rosuvastatin Calcium (Crestor) 5 mg PO HS [facility] Last Admin: 10/26/18 21:15 Dose: 5 mg Silver Sulfadiazine (Silvadene 1% 20 Gm) 0 ea TOP BID [facility] Last Admin: 10/27/18 09:05 Dose: 1 applic - Labs Labs: 10/27/18 08:07 10/27/18 08:07 PT 14.4 SECONDS (9.7-12.2) H 10/24/18 07:15 INR 1.3 10/24/18 07:15 APTT 37 SECONDS (21-34) H 10/24/18 07:15 - Additional Findings Additional findings: - Constitutional Appears: Non-toxic, No Acute Distress - Head Exam Head Exam: NORMAL INSPECTION, NORMOCEPHALIC - Eye Exam Eye Exam: EOMI, Normal appearance. absent: Nystagmus, Scleral icterus - ENT Exam ENT Exam: Mucous Membranes Dry - Respiratory Exam Respiratory Exam: Clear to Auscultation Bilateral, NORMAL BREATHING PATTERN. absent: Rales, Rhonchi, Wheezes - Cardiovascular Exam Cardiovascular Exam: REGULAR RHYTHM, +S1, +S2. absent: Tachycardia - GI/Abdominal Exam GI & Abdominal Exam: Normal Bowel Sounds, Soft. absent: Diminished Bowel Sounds, Distended, Firm, Guarding, Tenderness - Extremities Exam Extremities exam: Positive for: normal inspection. Negative for: calf tenderness, pedal edema Additional comments: Left knee there is immobilizer with scar on medial part of knee; clean incision, no erythema, blood or drainage noted. Remains nontender on palpation, but with swelling, minimal erythema. Some pain on knee extension. - Neurological Exam Neurological exam: Alert, Oriented x3, resting tremor b/l, tardive dyskinesia, cogwheel rigidity. rn correctional 2-12 grossly intact. 5/5 strength in upper and lower extremities. - Psychiatric Exam Psychiatric exam: Flat affect, Normal Mood - Skin Skin Exam: Dry, Intact. Deep brain stimulator wires palpated on right posterior neck: nontender, no signs of infection Assessment and Plan - Assessment and Plan (Free Text) Assessment: Electrolyte Disturbances Hyponatremia- resolved. Likely hypovolemic hyponatremia with component of hyperglycemia. 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 Na is stable at 132. S/p Tolvaptan 15 mg PO. Hypomagnesemia at 1.5 repleted with Mg 2g IVPB Nephro consulted, Dr. Nunez. Recommendations appreciated Depakote sprinkles discontinued 10/24/18 Weight Loss 80 lb weight loss as per pt/ over [address] w/o (10/21/18) : age related degenerative changes are identified as well as neural stimulator the right basal ganglia as discussed above. No intracranial hemorrhage, mass effect or cortical edema pattern identified. CT Chest, Abd, Pelvis with po and IV contrast (10/22/18): 1. no pulmonary mass or significant lymphadenopathy. mild cardiomegaly. potential pulmonary artery hypertension 2. possible constipation 3. possible antritis or mass affecting pylorus. gi consult advised 4. prior hysterectomy GI, Dr. Bruno consulted, help appreciated. EGD and Colonoscopy unimpressive for masses, see below. Serum immunofixation is positive, [place]/Lambda is normal. Anemia of chronic disease or iron deficiency anemia with acute phase reactant elevation H/H is stable Iron <10, TIBC normal (276), %sat 3.62. Ferritin high (452) may be due to acute phase reactant No indication for transfusion at this time Upper endoscopy was well tolerated 10/24/18 Gastritis: biopsied. Small hiatal hernia. No mass. Normal duodenum. Lower endoscopy to the cecum was well tolerated 10/26/18 Diverticulosis in the sigmoid colon. Nonbleeding internal hemorrhoids. Otherwise normal. No repeat colonoscopy due to age. Parkinson's disease Of note, pt has deep brain stimulator implanted for parkinson's disease implanted in June 2018. Dr. Ramirez Carbidopa/Levodopa 25-100mg 1 tab at 10am, 1.5 tabs at 12pm and 1 tab at 6 pm Carbidopa/Levodopa 50-200mg 1 tab po daily at 8am Amantadine 100mg po bid Ropinirole 2mg (pt's own) po daily Hx of Mood Disorder as per [facility] rehab notes Pt states that the depakote was started at rehab, and not by her PMD. Case discussed with PMD (Dr. Ian Ugarte), who reports pt has no history of seizures, mood disorder, or prescribing the mediation. 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 Bobby Petit as per pt Tylenol PRN for pain Knee immobilizer in place PT/OT evaluation, with plan for further rehab treatment at [facility] in [place] HTN Amlodipine 10mg po daily Well controlled Constipation Colace 100mg po TID Head lice Identification of body louse on path Pt reports symptoms improving Patient to be treated with Permethrin 1% repeat on 10/29/18 Continue contact precautions Prophylaxis SCDs, Heparin 5000 u sc q8 No GI prophylaxis indicated at this time Dispo: Pending authorization to [facility]. Possible discharge over weekend. Case discussed with Dr. Charles Shelby PGY1 <Zain Soto - Last Filed: 10/27/18 17:49> Objective - Vital Signs/Intake and Output Vital Signs (last 24 hours): Temp Pulse Resp BP Pulse Ox 98.6 F 101 H 20 130/66 97 10/27/18 16:00 10/27/18 16:00 10/27/18 16:00 10/27/18 16:00 10/27/18 16:00 Intake and Output: 10/27/18 10/27/18 06:59 18:59 Intake Total 1100 1600 Balance 1100 1600 - Medications Medications: Current Medications Acetaminophen (Tylenol 325mg Tab) 650 mg PO Q4H PRN PRN Reason: Pain, Mild (1-3) Amantadine HCl (Amantadine 100 Mg Cap) 100 mg PO BID [facility] Last Admin: 10/27/18 09:02 Dose: 100 mg Amlodipine Besylate (Norvasc) 2.5 mg PO DAILY [facility] Last Admin: 10/27/18 09:03 Dose: 2.5 mg Carbidopa/Levodopa (Sinemet) 1 tab PO BID [facility] Last Admin: 10/27/18 09:02 Dose: 1 tab Carbidopa/Levodopa (Sinemet) 1 tab PO DAILY@1200 [facility] Last Admin: 10/27/18 12:10 Dose: 1 tab Carbidopa/Levodopa (Sinemet) 1 tab PO QNOON [facility] Last Admin: 10/27/18 12:57 Dose: 1 tab Carbidopa/Levodopa (Sinemet Cr) 2 tab PO 0800 [facility] Last Admin: 10/27/18 09:02 Dose: 2 tab Clotrimazole (Lotrimin 1%) 0 gm TOP BID [facility] Last Admin: 10/27/18 09:05 Dose: 1 applic Dextrose (Dextrose 50% Inj) 0 ml IV STAT PRN; Protocol PRN Reason: Hypoglycemia Protocol Dextrose (Glutose 15) 0 gm PO ONCE PRN; Protocol PRN Reason: Hypoglycemia Protocol Docusate Sodium (Colace) 100 mg PO TID [facility] Last Admin: 10/27/18 13:02 Dose: 100 mg Docusate Sodium (Colace) 100 mg PO BID [facility] Last Admin: 10/27/18 09:03 Dose: 100 mg Ferrous Sulfate (Feosol) 325 mg PO DAILY [facility] Last Admin: 10/27/18 09:03 Dose: 325 mg Glucagon (Glucagen Diagnostic Kit) 0 mg IM STAT PRN; Protocol PRN Reason: Hypoglycemia Protocol Heparin Sodium (Porcine) (Heparin) 5,000 units SC Q8 [facility] Last Admin: 10/27/18 13:02 Dose: 5,000 units Home Med (Patient's Own Medication) 1 tab PO DAILY [facility] Last Admin: 10/27/18 09:01 Dose: 1 tab Dextrose (Dextrose 5% In Water 1000 Ml) 1,000 mls @ 0 mls/hr IV .Q0M PRN; Protocol PRN Reason: Hypoglycemia Protocol Insulin Human Regular (Novolin R) 0 unit SC ACHS [facility]; Protocol Last Admin: 10/27/18 11:56 Dose: Not Given Metformin HCl (Glucophage) 500 mg PO DAILY [facility] Last Admin: 10/27/18 09:03 Dose: 500 mg Pantoprazole Sodium (Protonix Ec Tab) 40 mg PO DAILY [facility] Last Admin: 10/27/18 09:02 Dose: 40 mg Permethrin (Nix Complete Lice Elimination Kit 1%) 59 ml TOP ONCE ONE Stop: 10/29/18 08:01 Rosuvastatin Calcium (Crestor) 5 mg PO HS [facility] Last Admin: 10/26/18 21:15 Dose: 5 mg Silver Sulfadiazine (Silvadene 1% 20 Gm) 0 ea TOP BID [facility] Last Admin: 10/27/18 09:05 Dose: 1 applic - Labs Labs: 10/27/18 08:07 10/27/18 08:07 PT 14.4 SECONDS (9.7-12.2) H 10/24/18 07:15 INR 1.3 10/24/18 07:15 APTT 37 SECONDS (21-34) H 10/24/18 07:15 Attending/Attestation - Attestation I have personally seen and examined this patient.: Yes I have fully participated in the care of the patient.: Yes I have reviewed all pertinent clinical information, including history, physical exam and plan: Yes
[2018-10-28 06:33] LABS: BASO # 0.1 K/uL (0.0-0.2); BASO % 0.8 % (0.0-2.0); EOS # 0.2 K/uL (0.0-0.7); EOS % 2.5 % (0.0-4.0); HEMOGLOBIN 9.6 g/dL (11.0-16.0); LYMPH # 1.7 K/uL (1.0-4.3); LYMPH % 23.9 % (20.0-40.0); MEAN CELL VOLUME 82.8 fL (81.0-99.0); MEAN CORPUSCULAR HEMOGLOBIN 26.5 pg (27.0-31.0); MEAN CORPUSCULAR HGB CONC 32.1 g/dL (33.0-37.0); MEAN PLATELET VOLUME 7.1 fL (7.2-11.7); MONO # 0.9 K/uL (0.0-0.8); MONO % 12.8 % (0.0-10.0); NEUT # 4.2 K/uL (1.8-7.0); RBC 3.6 Mil/uL (3.80-5.20); RED CELL DISTRIBUTION WIDTH 17.2 % (11.5-14.5)
[2018-10-28 06:49] LABS: ALB/GLOB RATIO 0.8 (1.0-2.1); ALT/SGPT 14 U/L (9-52); AST/SGOT 21 U/L (14-36); BLOOD UREA NITROGEN 7 mg/dL (7-17); CALCIUM 8.5 mg/dl (8.6-10.4); GFR NON-AFRICAN AMERICAN > 60
[2018-10-28] MEDS: (Novolin R) Insulin Human Regular 100 units/ml vial SC SCH ×4 (07:47→21:34)
[2018-10-28] MEDS ORDERED: Potassium Chloride 20 mEq ER Tab PO ONE ×3 (08:16→11:30)
[2018-10-28] MEDS: Carbidopa/Levodopa 25/100 CR PO SCH (08:27)
[2018-10-28] MEDS: ROPINIROLE 2 MG PO SCH (10:26)
[2018-10-28] MEDS: Pantoprazole 40 mg EC Tab PO SCH (10:28)
[2018-10-28] MEDS: Clotrimazole 1% Cream(30 gm) TOP SCH ×2 (10:29→18:31)
[2018-10-28] MEDS: Silver Sulfadiazine 1% Cream (20 gm) TOP SCH ×2 (10:29→18:32)
[2018-10-28] MEDS: LEVODOPA PO SCH (13:00)
[2018-10-28] MEDS: CARBIDOPA PO SCH (13:00)
[2018-10-28] MEDS ORDERED: Divalproex 125 mg Sprinkle Capsule PO SCH (18:00)
--- NOTE | 2018-10-28 19:01 | CP.PCM.PN ---
<Ray Shelby - Last Filed: 10/29/18 07:33> Subjective - Date & Time of Evaluation Date of Evaluation: 10/28/18 Time of Evaluation: 11:00 - Subjective Subjective: PGY1 Medicine progress note for Dr. Mireles Patient seen and examined at bedside. Patient has no acute complaints at this time. She states that somebody accidentally put their weight on her knee yesterday, but the pain went away. She reports that she feels better and is ready to be discharged to [facility]. Patient denies chest pain, shortness of breath, abdominal pain, nausea, vomiting, constipation, or diarrhea, numbness or tingling, headaches, dizziness. Objective - Vital Signs/Intake and Output Vital Signs (last 24 hours): Temp Pulse Resp BP Pulse Ox 98.6 F 94 H 20 119/69 96 10/28/18 16:00 10/28/18 16:00 10/28/18 16:00 10/28/18 16:00 10/28/18 16:00 - Medications Medications: Current Medications Acetaminophen (Tylenol 325mg Tab) 650 mg PO Q4H PRN PRN Reason: Pain, Mild (1-3) Amantadine HCl (Amantadine 100 Mg Cap) 100 mg PO BID [facility] Last Admin: 10/28/18 18:31 Dose: 100 mg Amlodipine Besylate (Norvasc) 2.5 mg PO DAILY [facility] Last Admin: 10/28/18 10:28 Dose: 2.5 mg Carbidopa/Levodopa (Sinemet) 1 tab PO BID [facility] Last Admin: 10/28/18 18:32 Dose: 1 tab Carbidopa/Levodopa (Sinemet) 1 tab PO DAILY@1200 [facility] Last Admin: 10/28/18 13:00 Dose: 1 tab Carbidopa/Levodopa (Sinemet) 1 tab PO QNOON [facility] Last Admin: 10/28/18 13:00 Dose: 1 tab Carbidopa/Levodopa (Sinemet Cr) 2 tab PO 0800 [facility] Last Admin: 10/28/18 08:27 Dose: 2 tab Clotrimazole (Lotrimin 1%) 0 gm TOP BID [facility] Last Admin: 10/28/18 18:31 Dose: 1 applic Dextrose (Dextrose 50% Inj) 0 ml IV STAT PRN; Protocol PRN Reason: Hypoglycemia Protocol Dextrose (Glutose 15) 0 gm PO ONCE PRN; Protocol PRN Reason: Hypoglycemia Protocol Docusate Sodium (Colace) 100 mg PO TID [facility] Last Admin: 10/28/18 18:31 Dose: Not Given Docusate Sodium (Colace) 100 mg PO BID [facility] Last Admin: 10/28/18 18:31 Dose: 100 mg Ferrous Sulfate (Feosol) 325 mg PO DAILY [facility] Last Admin: 10/28/18 10:27 Dose: 325 mg Glucagon (Glucagen Diagnostic Kit) 0 mg IM STAT PRN; Protocol PRN Reason: Hypoglycemia Protocol Heparin Sodium (Porcine) (Heparin) 5,000 units SC Q8 [facility] Last Admin: 10/28/18 13:10 Dose: 5,000 units Home Med (Patient's Own Medication) 1 tab PO DAILY [facility] Last Admin: 10/28/18 10:26 Dose: 1 tab Dextrose (Dextrose 5% In Water 1000 Ml) 1,000 mls @ 0 mls/hr IV .Q0M PRN; Protocol PRN Reason: Hypoglycemia Protocol Insulin Human Regular (Novolin R) 0 unit SC ACHS [facility]; Protocol Last Admin: 10/28/18 16:12 Dose: Not Given Metformin HCl (Glucophage) 500 mg PO DAILY [facility] Last Admin: 10/28/18 10:26 Dose: 500 mg Pantoprazole Sodium (Protonix Ec Tab) 40 mg PO DAILY [facility] Last Admin: 10/28/18 10:28 Dose: 40 mg Permethrin (Nix Complete Lice Elimination Kit 1%) 59 ml TOP ONCE ONE Stop: 10/29/18 08:01 Rosuvastatin Calcium (Crestor) 5 mg PO HS [facility] Last Admin: 10/27/18 22:27 Dose: 5 mg Silver Sulfadiazine (Silvadene 1% 20 Gm) 0 ea TOP BID [facility] Last Admin: 10/28/18 18:32 Dose: 1 applic - Labs Labs: 10/28/18 06:20 10/28/18 06:20 PT 14.4 SECONDS (9.7-12.2) H 10/24/18 07:15 INR 1.3 10/24/18 07:15 APTT 37 SECONDS (21-34) H 10/24/18 07:15 - Additional Findings Additional findings: - Constitutional Appears: Non-toxic, No Acute Distress - Head Exam Head Exam: NORMAL INSPECTION, NORMOCEPHALIC - Eye Exam Eye Exam: EOMI, Normal appearance. absent: Nystagmus, Scleral icterus - ENT Exam ENT Exam: Mucous Membranes Moist - Respiratory Exam Respiratory Exam: Clear to Auscultation Bilateral, NORMAL BREATHING PATTERN. absent: Rales, Rhonchi, Wheezes - Cardiovascular Exam Cardiovascular Exam: REGULAR RHYTHM, +S1, +S2. absent: Tachycardia - GI/Abdominal Exam GI & Abdominal Exam: Normal Bowel Sounds, Soft. absent: Diminished Bowel Sounds, Distended, Firm, Guarding, Tenderness - Extremities Exam Extremities exam: Positive for: normal inspection. Negative for: calf tenderness, pedal edema Additional comments: Left knee there is immobilizer with scar on medial part of knee; clean incision, no erythema, blood or drainage noted. Nontender on palpation, but with swelling, minimal erythema. Some pain on knee extension. - Neurological Exam Neurological exam: Alert, Oriented x3, resting tremor b/l, tardative dyskinesia, cogwheel rigidity. report programmer 2-12 grossly intact. 5/5 strength in upper and lower extremities. - Psychiatric Exam Psychiatric exam: Flat affect, Normal Mood - Skin Skin Exam: Dry, Intact. Deep brain stimulator wires palpated on right posterior neck: nontender, no signs of infection Assessment and Plan - Assessment and Plan (Free Text) Assessment: Patient is a 63 yo female w/ PMH Parkinson's disease, mood disorder, DM2, HLD, and HTN sent from [facility] for hyponatremia. Endorsed weight loss and noted to be anemia. Workup initiated for possible malignancy, but results have been normal. Plan: Electrolyte Disturbances Hyponatremia- resolved. Likely hypovolemic hyponatremia with component of hyperglycemia. 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 Na is stable at 132. S/p Tolvaptan 15 mg PO on admission. Hypomagnesemia, resolved Hypokalemia 3.5 repleted Nephro consulted, Dr. Nunez. Recommendations appreciated Depakote sprinkles discontinued 10/24/18 Weight Loss 80 lb weight loss as per pt/ over [address] w/o (10/21/18) : age related degenerative changes are identified as well as neural stimulator the right basal ganglia as discussed above. No intracranial hemorrhage, mass effect or cortical edema pattern identified. CT Chest, Abd, Pelvis with po and IV contrast (10/22/18): 1. no pulmonary mass or significant lymphadenopathy. mild cardiomegaly. potential pulmonary artery hypertension 2. possible constipation 3. possible antritis or mass affecting pylorus. gi consult advised 4. prior hysterectomy GI, Dr. Bruno consulted, help appreciated. EGD and Colonoscopy unimpressive for masses, see below. Serum immunofixation is positive, [place]/Lambda is normal. Anemia of chronic disease or iron deficiency anemia with acute phase reactant elevation H/H is stable Iron <10, TIBC normal (276), %sat 3.62. Ferritin high (452) may be due to acute phase reactant No indication for transfusion at this time Upper endoscopy was well tolerated 10/24/18 Gastritis: biopsied. Small hiatal hernia. No mass. Normal duodenum. Protonix 40 mg PO daily Lower endoscopy to the cecum was well tolerated 10/26/18 Diverticulosis in the sigmoid colon. Nonbleeding internal hemorrhoids. Otherwise normal. No repeat colonoscopy due to age. Parkinson's disease Of note, pt has deep brain stimulator implanted for parkinson's disease implanted in June 2018. Dr. Ramirez Carbidopa/Levodopa 25-100mg 1 tab at 10am, 1.5 tabs at 12pm and 1 tab at 6 pm Carbidopa/Levodopa 50-200mg 1 tab po daily at 8am Amantadine 100mg po bid Ropinirole 2mg (pt's own) po daily Hx of Mood Disorder as per [facility] rehab notes Pt states that the depakote was started at rehab, and not by her PMD. Case discussed with PMD (Dr. Ian Ugarte), who reports pt has no history of seizures, mood disorder, or prescribing the mediation. 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 Bobby Petit as per pt Tylenol PRN for pain Knee immobilizer in place PT/OT evaluation, with plan for further rehab treatment at [facility] in [place] HTN Amlodipine 10mg po daily Well controlled Constipation Colace 100mg po TID Head lice Identification of body louse on path Pt reports symptoms improving Patient to be treated with Permethrin 1% repeat today Continue contact precautions Prophylaxis SCDs, Heparin 5000 u sc q8 Prontonix 40 mg PO daily for GI ppx Dispo: Pending authorization to [facility]. Case discussed with Dr. Aline Shelby PGY1 <Anupam Mireles H - Last Filed: 10/29/18 11:39> Objective - Vital Signs/Intake and Output Vital Signs (last 24 hours): Temp Pulse Resp BP Pulse Ox 98.1 F 85 20 131/74 98 10/29/18 08:18 10/29/18 08:18 10/29/18 08:18 10/29/18 08:18 10/29/18 08:18 Intake and Output: 10/29/18 10/29/18 06:59 18:59 Intake Total 150 Balance 150 - Medications Medications: Current Medications Acetaminophen (Tylenol 325mg Tab) 650 mg PO Q4H PRN PRN Reason: Pain, Mild (1-3) Amantadine HCl (Amantadine 100 Mg Cap) 100 mg PO BID [facility] Last Admin: 10/29/18 10:27 Dose: 100 mg Amlodipine Besylate (Norvasc) 2.5 mg PO DAILY [facility] Last Admin: 10/29/18 10:27 Dose: 2.5 mg Carbidopa/Levodopa (Sinemet) 1 tab PO BID [facility] Last Admin: 10/29/18 10:27 Dose: 1 tab Carbidopa/Levodopa (Sinemet) 1 tab PO DAILY@1200 [facility] Last Admin: 10/28/18 13:00 Dose: 1 tab Carbidopa/Levodopa (Sinemet) 1 tab PO QNOON [facility] Last Admin: 10/28/18 13:00 Dose: 1 tab Carbidopa/Levodopa (Sinemet Cr) 2 tab PO 0800 [facility] Last Admin: 10/29/18 08:24 Dose: 2 tab Clotrimazole (Lotrimin 1%) 0 gm TOP BID [facility] Last Admin: 10/29/18 10:28 Dose: 1 applic Dextrose (Dextrose 50% Inj) 0 ml IV STAT PRN; Protocol PRN Reason: Hypoglycemia Protocol Dextrose (Glutose 15) 0 gm PO ONCE PRN; Protocol PRN Reason: Hypoglycemia Protocol Docusate Sodium (Colace) 100 mg PO TID [facility] Last Admin: 10/29/18 10:25 Dose: 100 mg Docusate Sodium (Colace) 100 mg PO BID [facility] Last Admin: 10/29/18 10:25 Dose: Not Given Ferrous Sulfate (Feosol) 325 mg PO DAILY [facility] Last Admin: 10/29/18 10:25 Dose: 325 mg Glucagon (Glucagen Diagnostic Kit) 0 mg IM STAT PRN; Protocol PRN Reason: Hypoglycemia Protocol Heparin Sodium (Porcine) (Heparin) 5,000 units SC Q8 [facility] Last Admin: 10/29/18 06:07 Dose: 5,000 units Home Med (Patient's Own Medication) 1 tab PO DAILY [facility] Last Admin: 10/29/18 10:25 Dose: 1 tab Dextrose (Dextrose 5% In Water 1000 Ml) 1,000 mls @ 0 mls/hr IV .Q0M PRN; Protocol PRN Reason: Hypoglycemia Protocol Insulin Human Regular (Novolin R) 0 unit SC ACHS [facility]; Protocol Last Admin: 10/29/18 07:58 Dose: Not Given Metformin HCl (Glucophage) 500 mg PO DAILY [facility] Last Admin: 10/29/18 10:26 Dose: 500 mg Pantoprazole Sodium (Protonix Ec Tab) 40 mg PO DAILY [facility] Last Admin: 10/29/18 10:27 Dose: 40 mg Rosuvastatin Calcium (Crestor) 5 mg PO HS [facility] Last Admin: 10/28/18 21:34 Dose: 5 mg Silver Sulfadiazine (Silvadene 1% 20 Gm) 0 ea TOP BID [facility] Last Admin: 10/29/18 10:28 Dose: 1 applic - Labs Labs: 10/29/18 08:05 10/29/18 08:05 PT 14.4 SECONDS (9.7-12.2) H 10/24/18 07:15 INR 1.3 10/24/18 07:15 APTT 37 SECONDS (21-34) H 10/24/18 07:15 Attending/Attestation - Attestation I have personally seen and examined this patient.: Yes I have fully participated in the care of the patient.: Yes I have reviewed all pertinent clinical information, including history, physical exam and plan: Yes Notes (Text): Medical attending: Patient was seen and examined by me with the medical residents on 10/28, I reviewed the above and agree with the above note by the resident. The patient was pending discharge previous day however I was informed that the patient and family do not want to return to the previous [facility] and currently we are trying to see if there a different one she can go to. The patient has a history of Parkinson Disease. She is verbal, however her affect is very slow. She is on medication for the Parkinson Disease and it appears has had surgical implants in the past to see if this would help with her PD. Review of previous notes suggest that the patient has had a gradual decl ine/failure to thrive like picture. She has been having weight-loss, chronic anemia, sacral wounds reported. Even her electrolytes showed hyponatremia. It is not readily clear how well if she has been eating CT imaging did suggest a mass or malignancy and an EGD and colonscopy was stable She recently had a knee fracture repair and currently is in a knee immobilizer Also of concern is headlice, the prevoius days the patient had permethrin cream applied. Anupam Mireles
[2018-10-29] MEDS: (Novolin R) Insulin Human Regular 100 units/ml vial SC SCH ×4 (07:58→21:09)
[2018-10-29] MEDS ORDERED: Permethrin 1% Kit 59 ML BOTTLE TOP ONE (08:00)
[2018-10-29 08:23] LABS: BASO # 0.1 K/uL (0.0-0.2); BASO % 1.2 % (0.0-2.0); EOS # 0.2 K/uL (0.0-0.7); EOS % 2.9 % (0.0-4.0); HEMOGLOBIN 10.1 g/dL (11.0-16.0); LYMPH # 1.6 K/uL (1.0-4.3); LYMPH % 24.8 % (20.0-40.0); MEAN CELL VOLUME 83.6 fL (81.0-99.0); MEAN CORPUSCULAR HEMOGLOBIN 26.5 pg (27.0-31.0); MEAN CORPUSCULAR HGB CONC 31.6 g/dL (33.0-37.0); MEAN PLATELET VOLUME 7.7 fL (7.2-11.7); MONO # 0.8 K/uL (0.0-0.8); MONO % 12.1 % (0.0-10.0); NEUT # 3.9 K/uL (1.8-7.0); RBC 3.81 Mil/uL (3.80-5.20); RED CELL DISTRIBUTION WIDTH 17.7 % (11.5-14.5); WHITE BLOOD COUNT 6.6 K/uL (4.8-10.8)
[2018-10-29] MEDS: Carbidopa/Levodopa 25/100 CR PO SCH (08:24)
[2018-10-29 08:54] LABS: ALB/GLOB RATIO 0.8 (1.0-2.1); ALBUMIN 3.4 g/dL (3.5-5.0); ALT/SGPT 6 U/L (9-52); AST/SGOT 28 U/L (14-36); BLOOD UREA NITROGEN 7 mg/dL (7-17); CALCIUM 9.1 mg/dl (8.6-10.4); GFR NON-AFRICAN AMERICAN > 60
[2018-10-29] MEDS: ROPINIROLE 2 MG PO SCH (10:25)
[2018-10-29] MEDS: Pantoprazole 40 mg EC Tab PO SCH (10:27)
[2018-10-29] MEDS: Silver Sulfadiazine 1% Cream (20 gm) TOP SCH ×2 (10:28→17:36)
[2018-10-29] MEDS: Clotrimazole 1% Cream(30 gm) TOP SCH ×2 (10:28→17:36)
[2018-10-29] MEDS: LEVODOPA PO SCH (12:23)
[2018-10-29] MEDS: CARBIDOPA PO SCH (12:23)
--- NOTE | 2018-10-29 20:23 | CP.PCM.PN ---
<Ray Shelby - Last Filed: 10/30/18 09:29> Subjective - Date & Time of Evaluation Date of Evaluation: 10/29/18 Time of Evaluation: 09:00 - Subjective Subjective: PGY1 Medicine progress note for Dr. Mireles Patient seen and examined at bedside. Patient reports continued fatigue and decreased appetite. She would like to be discharged to [facility]. Patient denies chest pain, shortness of breath, abdominal pain, nausea, vomiting, constipation, or diarrhea, numbness or tingling, headaches, dizziness, seizure activity, syncope. Objective - Vital Signs/Intake and Output Vital Signs (last 24 hours): Temp Pulse Resp BP Pulse Ox 99 F 82 20 116/68 97 10/29/18 16:00 10/29/18 16:00 10/29/18 16:00 10/29/18 16:00 10/29/18 16:00 Intake and Output: 10/29/18 10/30/18 18:59 06:59 Intake Total 150 Balance 150 - Medications Medications: Current Medications Acetaminophen (Tylenol 325mg Tab) 650 mg PO Q4H PRN PRN Reason: Pain, Mild (1-3) Amantadine HCl (Amantadine 100 Mg Cap) 100 mg PO BID [facility] Last Admin: 10/29/18 17:35 Dose: 100 mg Amlodipine Besylate (Norvasc) 2.5 mg PO DAILY [facility] Last Admin: 10/29/18 10:27 Dose: 2.5 mg Carbidopa/Levodopa (Sinemet) 1 tab PO BID [facility] Last Admin: 10/29/18 17:56 Dose: 1 tab Carbidopa/Levodopa (Sinemet) 1 tab PO DAILY@1200 [facility] Last Admin: 10/29/18 12:23 Dose: 1 tab Carbidopa/Levodopa (Sinemet) 1 tab PO QNOON [facility] Last Admin: 10/29/18 12:23 Dose: 1 tab Carbidopa/Levodopa (Sinemet Cr) 2 tab PO 0800 [facility] Last Admin: 10/29/18 08:24 Dose: 2 tab Clotrimazole (Lotrimin 1%) 0 gm TOP BID [facility] Last Admin: 10/29/18 17:36 Dose: Not Given Dextrose (Dextrose 50% Inj) 0 ml IV STAT PRN; Protocol PRN Reason: Hypoglycemia Protocol Dextrose (Glutose 15) 0 gm PO ONCE PRN; Protocol PRN Reason: Hypoglycemia Protocol Docusate Sodium (Colace) 100 mg PO TID [facility] Last Admin: 10/29/18 17:35 Dose: 100 mg Docusate Sodium (Colace) 100 mg PO BID [facility] Last Admin: 10/29/18 17:35 Dose: Not Given Ferrous Sulfate (Feosol) 325 mg PO DAILY [facility] Last Admin: 10/29/18 10:25 Dose: 325 mg Glucagon (Glucagen Diagnostic Kit) 0 mg IM STAT PRN; Protocol PRN Reason: Hypoglycemia Protocol Heparin Sodium (Porcine) (Heparin) 5,000 units SC Q8 [facility] Last Admin: 10/29/18 14:06 Dose: 5,000 units Home Med (Patient's Own Medication) 1 tab PO DAILY [facility] Last Admin: 10/29/18 10:25 Dose: 1 tab Dextrose (Dextrose 5% In Water 1000 Ml) 1,000 mls @ 0 mls/hr IV .Q0M PRN; Protocol PRN Reason: Hypoglycemia Protocol Insulin Human Regular (Novolin R) 0 unit SC ACHS [facility]; Protocol Last Admin: 10/29/18 16:19 Dose: Not Given Metformin HCl (Glucophage) 500 mg PO DAILY [facility] Last Admin: 10/29/18 10:26 Dose: 500 mg Pantoprazole Sodium (Protonix Ec Tab) 40 mg PO DAILY [facility] Last Admin: 10/29/18 10:27 Dose: 40 mg Rosuvastatin Calcium (Crestor) 5 mg PO HS [facility] Last Admin: 10/28/18 21:34 Dose: 5 mg Silver Sulfadiazine (Silvadene 1% 20 Gm) 0 ea TOP BID [facility] Last Admin: 10/29/18 17:36 Dose: Not Given - Labs Labs: 10/29/18 08:05 10/29/18 08:05 PT 14.4 SECONDS (9.7-12.2) H 10/24/18 07:15 INR 1.3 10/24/18 07:15 APTT 37 SECONDS (21-34) H 10/24/18 07:15 - Additional Findings Additional findings: - Constitutional Appears: Non-toxic, No Acute Distress, Chronically ill - Head Exam Head Exam: NORMAL INSPECTION, NORMOCEPHALIC - Eye Exam Eye Exam: EOMI, Normal appearance. absent: Nystagmus, Scleral icterus - ENT Exam ENT Exam: Mucous Membranes Dry - Respiratory Exam Respiratory Exam: Clear to Auscultation Bilateral, NORMAL BREATHING PATTERN. absent: Rales, Rhonchi, Wheezes - Cardiovascular Exam Cardiovascular Exam: REGULAR RHYTHM, +S1, +S2. absent: Tachycardia - GI/Abdominal Exam GI & Abdominal Exam: Normal Bowel Sounds, Soft. absent: Diminished Bowel Sounds, Distended, Firm, Guarding, Tenderness - Extremities Exam Extremities exam: Positive for: normal inspection. Negative for: calf tenderness, pedal edema Additional comments: Left knee there is immobilizer with scar on medial part of knee; clean incision, no erythema, blood or drainage noted. Nontender on palpation, but with swelling, minimal erythema. Some pain on knee extension. - Neurological Exam Neurological exam: Alert, Oriented x3, resting tremor b/l, tardative dyskinesia, cogwheel rigidity. 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 5/5 strength in upper and lower extremities. - Psychiatric Exam Psychiatric exam: Flat affect, Normal Mood - Skin Skin Exam: Dry, Intact. Deep brain stimulator wires palpated on right posterior neck: nontender, no signs of infection Assessment and Plan - Assessment and Plan (Free Text) Assessment: Patient is a 63 yo female w/ PMH Parkinson's disease, mood disorder, DM2, HLD, and HTN sent from [facility] for hyponatremia. Endorsed weight loss and noted to be anemia. Workup initiated for possible malignancy, but results have been normal. Plan: Electrolyte Disturbances Hyponatremia- resolved. Likely hypovolemic hyponatremia. 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 Na is stable at 132. S/p Tolvaptan 15 mg PO on admission. Continue to replete electrolytes as needed Nephro consulted, Dr. Nunez. Recommendations appreciated Depakote sprinkles discontinued 10/24/18 Weight Loss/Failure to thrive 80 lb weight loss as per pt/ over [address] w/o (10/21/18) : age related degenerative changes are identified as well as neural stimulator the right basal ganglia as discussed above. No intracranial hemorrhage, mass effect or cortical edema pattern identified. CT Chest, Abd, Pelvis with po and IV contrast (10/22/18): 1. no pulmonary mass or significant lymphadenopathy. mild cardiomegaly. potential pulmonary artery hypertension 2. possible constipation 3. possible antritis or mass affecting pylorus. gi consult advised 4. prior hysterectomy GI, Dr. Bruno consulted, help appreciated. EGD and Colonoscopy unimpressive for masses, see below. Serum immunofixation is positive, Winston/Lambda is normal. Will consider appetite stimulator Anemia of chronic disease or iron deficiency anemia with acute phase reactant elevation H/H is stable Iron <10, TIBC normal (276), %sat 3.62. Ferritin high (452) may be due to acute phase reactant No indication for transfusion at this time Upper endoscopy was well tolerated 10/24/18 Gastritis: biopsied. Small hiatal hernia. No mass. Normal duodenum. Protonix 40 mg PO daily Lower endoscopy to the cecum was well tolerated 10/26/18 Diverticulosis in the sigmoid colon. Nonbleeding internal hemorrhoids. Otherwise normal. No repeat colonoscopy due to age. Parkinson's disease Of note, pt has deep brain stimulator implanted for parkinson's disease implanted in June 2018. Dr. Ramirez Carbidopa/Levodopa 25-100mg 1 tab at 10am, 1.5 tabs at 12pm and 1 tab at 6 pm Carbidopa/Levodopa 50-200mg 1 tab po daily at 8am Amantadine 100mg po bid Ropinirole 2mg (pt's own) po daily Hx of Mood Disorder as per [facility] rehab notes Pt states that the depakote was started at rehab, and not by her PMD. Case discussed with PMD (Dr. Ian Ugarte), who reports pt has no history of seizures, mood disorder, or prescribing the mediation. 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 Bobby Petit as per pt Tylenol PRN for pain Knee immobilizer in place PT/OT evaluation, with plan for further rehab treatment at [facility] in [place] HTN Amlodipine 10mg po daily Well controlled Constipation Colace 100mg po TID Head lice Identification of body louse on path Pt reports symptoms improving S/p two permethin treatments, with removal of lice x2 Will give Ivermectin PO Continue contact precautions Prophylaxis SCDs, Heparin 5000 u sc q8 Prontonix 40 mg PO daily for GI ppx Dispo: Pending authorization to [facility]. Case discussed with Dr. Aline Shelby PGY1 <Anupam Mireles H - Last Filed: 10/30/18 11:10> Objective - Vital Signs/Intake and Output Vital Signs (last 24 hours): Temp Pulse Resp BP Pulse Ox 98.1 F 90 20 126/73 99 10/30/18 08:11 10/30/18 08:11 10/30/18 08:11 10/30/18 08:11 10/30/18 08:11 Intake and Output: 10/30/18 10/30/18 06:59 18:59 Intake Total 360 120 Balance 360 120 - Medications Medications: Current Medications Acetaminophen (Tylenol 325mg Tab) 650 mg PO Q4H PRN PRN Reason: Pain, Mild (1-3) Amantadine HCl (Amantadine 100 Mg Cap) 100 mg PO BID [facility] Last Admin: 10/29/18 17:35 Dose: 100 mg Amlodipine Besylate (Norvasc) 2.5 mg PO DAILY [facility] Last Admin: 10/29/18 10:27 Dose: 2.5 mg Carbidopa/Levodopa (Sinemet) 1 tab PO BID [facility] Last Admin: 10/29/18 17:56 Dose: 1 tab Carbidopa/Levodopa (Sinemet) 1 tab PO DAILY@1200 [facility] Last Admin: 10/29/18 12:23 Dose: 1 tab Carbidopa/Levodopa (Sinemet) 1 tab PO QNOON [facility] Last Admin: 10/29/18 12:23 Dose: 1 tab Carbidopa/Levodopa (Sinemet Cr) 2 tab PO 0800 [facility] Last Admin: 10/30/18 08:38 Dose: 2 tab Clotrimazole (Lotrimin 1%) 0 gm TOP BID [facility] Last Admin: 10/29/18 17:36 Dose: Not Given Dextrose (Dextrose 50% Inj) 0 ml IV STAT PRN; Protocol PRN Reason: Hypoglycemia Protocol Dextrose (Glutose 15) 0 gm PO ONCE PRN; Protocol PRN Reason: Hypoglycemia Protocol Docusate Sodium (Colace) 100 mg PO TID [facility] Last Admin: 10/29/18 17:35 Dose: 100 mg Docusate Sodium (Colace) 100 mg PO BID [facility] Last Admin: 10/29/18 17:35 Dose: Not Given Ferrous Sulfate (Feosol) 325 mg PO DAILY [facility] Last Admin: 10/29/18 10:25 Dose: 325 mg Glucagon (Glucagen Diagnostic Kit) 0 mg IM STAT PRN; Protocol PRN Reason: Hypoglycemia Protocol Heparin Sodium (Porcine) (Heparin) 5,000 units SC Q8 [facility] Last Admin: 10/30/18 05:39 Dose: 5,000 units Home Med (Patient's Own Medication) 1 tab PO DAILY [facility] Last Admin: 10/29/18 10:25 Dose: 1 tab Dextrose (Dextrose 5% In Water 1000 Ml) 1,000 mls @ 0 mls/hr IV .Q0M PRN; Protocol PRN Reason: Hypoglycemia Protocol Insulin Human Regular (Novolin R) 0 unit SC ACHS [facility]; Protocol Last Admin: 10/30/18 08:10 Dose: Not Given Megestrol Acetate (Megace) 400 mg PO DAILY [facility] Metformin HCl (Glucophage) 500 mg PO DAILY [facility] Last Admin: 10/29/18 10:26 Dose: 500 mg Pantoprazole Sodium (Protonix Ec Tab) 40 mg PO DAILY [facility] Last Admin: 10/29/18 10:27 Dose: 40 mg Rosuvastatin Calcium (Crestor) 5 mg PO HS [facility] Last Admin: 10/29/18 21:10 Dose: 5 mg Silver Sulfadiazine (Silvadene 1% 20 Gm) 0 ea TOP BID [facility] Last Admin: 10/29/18 17:36 Dose: Not Given - Labs Labs: 10/30/18 06:24 10/30/18 06:24 PT 14.4 SECONDS (9.7-12.2) H 10/24/18 07:15 INR 1.3 10/24/18 07:15 APTT 37 SECONDS (21-34) H 10/24/18 07:15 Attending/Attestation - Attestation I have personally seen and examined this patient.: Yes I have fully participated in the care of the patient.: Yes I have reviewed all pertinent clinical information, including history, physical exam and plan: Yes Notes (Text): 10/30/18 11:05 Medical attending: Patient was seen and examined by me. Agree with the above note by the resident. Of particular note is the patient's ongoing lack of appettie. We will try starting megace 400 daily to see if this helps with the patient's appettie. We also encouraged her to take the ensure supplements and also eat her food. She reports she sometimes does not feel like eating With reguards to her hyponatremia, the Na came down to 128 today - likely an reflection of her nutrition status for the past several months Currently we are still pending a new [facility] to accept patient. I am told by the staff that because of the concern for lice that many places are reluctant to accept her. She has had several treatments with permetherin cream as well as ivermectin x 1 Anupam Mireles
[2018-10-30 06:40] LABS: BASO # 0.1 K/uL (0.0-0.2); BASO % 0.9 % (0.0-2.0); EOS # 0.2 K/uL (0.0-0.7); EOS % 2.3 % (0.0-4.0); LYMPH # 1.7 K/uL (1.0-4.3); LYMPH % 21.7 % (20.0-40.0); MEAN CELL VOLUME 82.3 fL (81.0-99.0); MEAN CORPUSCULAR HEMOGLOBIN 26.6 pg (27.0-31.0); MEAN CORPUSCULAR HGB CONC 32.4 g/dL (33.0-37.0); MEAN PLATELET VOLUME 7.1 fL (7.2-11.7); MONO # 0.9 K/uL (0.0-0.8); MONO % 12.1 % (0.0-10.0); NEUT # 4.9 K/uL (1.8-7.0); RBC 3.76 Mil/uL (3.80-5.20); RED CELL DISTRIBUTION WIDTH 16.8 % (11.5-14.5); WHITE BLOOD COUNT 7.8 K/uL (4.8-10.8)
[2018-10-30 07:00] LABS: ALB/GLOB RATIO 0.9 (1.0-2.1); ALBUMIN 3.4 g/dL (3.5-5.0); ALT/SGPT 8 U/L (9-52); AST/SGOT 21 U/L (14-36); BLOOD UREA NITROGEN 12 mg/dL (7-17); GFR NON-AFRICAN AMERICAN > 60
[2018-10-30] MEDS: (Novolin R) Insulin Human Regular 100 units/ml vial SC SCH ×4 (08:10→21:20)
[2018-10-30] MEDS: Magnesium Sulfate 1 gm in D5W 1 GM/100 ML BAG IVPB SCH ×2 (08:36→09:50)
[2018-10-30] MEDS: Carbidopa/Levodopa 25/100 CR PO SCH (08:38)
[2018-10-30] MEDS: Pantoprazole 40 mg EC Tab PO SCH (11:21)
[2018-10-30] MEDS: Megestrol Acetate 40 mg/ml Cup PO SCH (11:23)
[2018-10-30] MEDS: ROPINIROLE 2 MG PO SCH (11:24)
[2018-10-30] MEDS: Clotrimazole 1% Cream(30 gm) TOP SCH ×2 (11:28→17:09)
[2018-10-30] MEDS: Silver Sulfadiazine 1% Cream (20 gm) TOP SCH ×2 (11:28→17:09)
[2018-10-30] MEDS: LEVODOPA PO SCH (12:45)
[2018-10-30] MEDS: CARBIDOPA PO SCH (12:45)
--- NOTE | 2018-10-30 16:58 | CP.PCM.PN ---
<Ray Shelby - Last Filed: 10/30/18 16:56> Subjective - Date & Time of Evaluation Date of Evaluation: 10/30/18 Time of Evaluation: 16:56 - Subjective Subjective: PGY1 Medicine progress note for Dr. Mireles Patient seen and examined at bedside. Patient reports continued fatigue and decreased appetite. Patient denies chest pain, shortness of breath, abdominal pain, nausea, vomiting, constipation, or diarrhea, numbness or tingling, headaches, dizziness, seizure activity, syncope. Objective - Vital Signs/Intake and Output Vital Signs (last 24 hours): Temp Pulse Resp BP Pulse Ox 98.1 F 98 H 20 112/67 97 10/30/18 16:00 10/30/18 16:00 10/30/18 16:00 10/30/18 16:00 10/30/18 16:00 Intake and Output: 10/30/18 10/30/18 06:59 18:59 Intake Total 360 520 Balance 360 520 - Medications Medications: Current Medications Acetaminophen (Tylenol 325mg Tab) 650 mg PO Q4H PRN PRN Reason: Pain, Mild (1-3) Amantadine HCl (Amantadine 100 Mg Cap) 100 mg PO BID [facility] Last Admin: 10/29/18 17:35 Dose: 100 mg Amlodipine Besylate (Norvasc) 2.5 mg PO DAILY [facility] Last Admin: 10/30/18 11:21 Dose: 2.5 mg Carbidopa/Levodopa (Sinemet) 1 tab PO BID [facility] Last Admin: 10/30/18 11:27 Dose: 1 tab Carbidopa/Levodopa (Sinemet) 1 tab PO DAILY@1200 [facility] Last Admin: 10/30/18 12:46 Dose: 1 tab Carbidopa/Levodopa (Sinemet) 1 tab PO QNOON [facility] Last Admin: 10/30/18 12:45 Dose: 1 tab Carbidopa/Levodopa (Sinemet Cr) 2 tab PO 0800 [facility] Last Admin: 10/30/18 08:38 Dose: 2 tab Clotrimazole (Lotrimin 1%) 0 gm TOP BID [facility] Last Admin: 10/30/18 11:28 Dose: Not Given Dextrose (Dextrose 50% Inj) 0 ml IV STAT PRN; Protocol PRN Reason: Hypoglycemia Protocol Dextrose (Glutose 15) 0 gm PO ONCE PRN; Protocol PRN Reason: Hypoglycemia Protocol Docusate Sodium (Colace) 100 mg PO TID [facility] Last Admin: 10/30/18 14:46 Dose: 100 mg Docusate Sodium (Colace) 100 mg PO BID [facility] Last Admin: 10/30/18 11:22 Dose: Not Given Ferrous Sulfate (Feosol) 325 mg PO DAILY [facility] Last Admin: 10/30/18 11:21 Dose: 325 mg Glucagon (Glucagen Diagnostic Kit) 0 mg IM STAT PRN; Protocol PRN Reason: Hypoglycemia Protocol Heparin Sodium (Porcine) (Heparin) 5,000 units SC Q8 [facility] Last Admin: 10/30/18 14:47 Dose: 5,000 units Home Med (Patient's Own Medication) 1 tab PO DAILY [facility] Last Admin: 10/30/18 11:24 Dose: 1 tab Dextrose (Dextrose 5% In Water 1000 Ml) 1,000 mls @ 0 mls/hr IV .Q0M PRN; Protocol PRN Reason: Hypoglycemia Protocol Insulin Human Regular (Novolin R) 0 unit SC ACHS [facility]; Protocol Last Admin: 10/30/18 16:39 Dose: Not Given Megestrol Acetate (Megace) 400 mg PO DAILY [facility] Last Admin: 10/30/18 11:23 Dose: 400 mg Metformin HCl (Glucophage) 500 mg PO DAILY [facility] Last Admin: 10/30/18 11:21 Dose: 500 mg Pantoprazole Sodium (Protonix Ec Tab) 40 mg PO DAILY [facility] Last Admin: 10/30/18 11:21 Dose: 40 mg Rosuvastatin Calcium (Crestor) 5 mg PO HS [facility] Last Admin: 10/29/18 21:10 Dose: 5 mg Silver Sulfadiazine (Silvadene 1% 20 Gm) 0 ea TOP BID [facility] Last Admin: 10/30/18 11:28 Dose: Not Given - Labs Labs: 10/30/18 06:24 10/30/18 06:24 PT 14.4 SECONDS (9.7-12.2) H 10/24/18 07:15 INR 1.3 10/24/18 07:15 APTT 37 SECONDS (21-34) H 10/24/18 07:15 - Additional Findings Additional findings: - Constitutional Appears: Non-toxic, No Acute Distress, Chronically ill - Head Exam Head Exam: NORMAL INSPECTION, NORMOCEPHALIC - Eye Exam Eye Exam: EOMI, Normal appearance. absent: Nystagmus, Scleral icterus - ENT Exam ENT Exam: Mucous Membranes Dry - Respiratory Exam Respiratory Exam: Clear to Auscultation Bilateral, NORMAL BREATHING PATTERN. absent: Rales, Rhonchi, Wheezes - Cardiovascular Exam Cardiovascular Exam: REGULAR RHYTHM, +S1, +S2. absent: Tachycardia - GI/Abdominal Exam GI & Abdominal Exam: Normal Bowel Sounds, Soft. absent: Diminished Bowel Sounds, Distended, Firm, Guarding, Tenderness - Extremities Exam Extremities exam: Positive for: normal inspection. Negative for: calf tenderness, pedal edema Additional comments: Left knee there is immobilizer with scar on medial part of knee; clean incision, no erythema, blood or drainage noted. Nontender on palpation, but with swelling, minimal erythema. Some pain on knee extension. - Neurological Exam Neurological exam: Alert, Oriented x3, resting tremor b/l, tardative dyskinesia, cogwheel rigidity. 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 5/5 strength in upper and lower extremities. - Psychiatric Exam Psychiatric exam: Flat affect, Normal Mood - Skin Skin Exam: Dry, Intact. Deep brain stimulator (right upper chest wall) wires palpated on right posterior neck: nontender, no signs of infection Assessment and Plan - Assessment and Plan (Free Text) Assessment: Patient is a 63 yo female w/ PMH Parkinson's disease, mood disorder, DM2, HLD, and HTN sent from [facility] for hyponatremia. Endorsed weight loss and noted to be anemia. Workup initiated for possible malignancy, but results have been normal. Plan: Electrolyte Disturbances Hyponatremia- resolved. Likely hypovolemic hyponatremia. 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 Na is stable at 132. S/p Tolvaptan 15 mg PO on admission. Continue to replete electrolytes as needed Nephro consulted, Dr. Nunez. Recommendations appreciated Depakote sprinkles discontinued 10/24/18 Weight Loss/Failure to thrive 80 lb weight loss as per pt/ over [address] w/o (10/21/18) : age related degenerative changes are identified as well as neural stimulator the right basal ganglia as discussed above. No intracranial hemorrhage, mass effect or cortical edema pattern identified. CT Chest, Abd, Pelvis with po and IV contrast (10/22/18): 1. no pulmonary mass or significant lymphadenopathy. mild cardiomegaly. potential pulmonary artery hypertension 2. possible constipation 3. possible antritis or mass affecting pylorus. gi consult advised 4. prior hysterectomy GI, Dr. Bruno consulted, help appreciated. EGD and Colonoscopy unimpressive for masses, see below. Serum immunofixation is positive, [place]/Lambda is normal. Will start Megace 400 mg PO BID for appetite stimulation Anemia of chronic disease or iron deficiency anemia with acute phase reactant elevation H/H is stable Iron <10, TIBC normal (276), %sat 3.62. Ferritin high (452) may be due to acute phase reactant No indication for transfusion at this time Upper endoscopy was well tolerated 10/24/18 Gastritis: biopsied. Small hiatal hernia. No mass. Normal duodenum. Protonix 40 mg PO daily Lower endoscopy to the cecum was well tolerated 10/26/18 Diverticulosis in the sigmoid colon. Nonbleeding internal hemorrhoids. Otherwise normal. No repeat colonoscopy due to age. Parkinson's disease Of note, pt has deep brain stimulator implanted for parkinson's disease [place] in June 2018. Dr. Ramirez Carbidopa/Levodopa 25-100mg 1 tab at 10am, 1.5 tabs at 12pm and 1 tab at 6 pm Carbidopa/Levodopa 50-200mg 1 tab po daily at 8am Amantadine 100mg po bid Ropinirole 2mg (pt's own) po daily Hx of Mood Disorder as per [facility] notes Pt states that the depakote was started at rehab, and not by her PMD. Case discussed with PMD (Dr. Ian Ugarte), who reports pt has no history of seizures, mood disorder, or prescribing the mediation. 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 Bobby Petit as per pt Tylenol PRN for pain Knee immobilizer in place PT/OT evaluation, with plan for further rehab treatment at [facility] [place] in [place] HTN Amlodipine 10mg po daily Well controlled Constipation Colace 100mg po TID Head lice, resolved Identification of body louse on path Pt reports symptoms improving S/p two permethin treatments, with removal of lice x2 S/p ivermectin x 1 treatment Pt has completed treatment for lice Continue contact precautions Prophylaxis SCDs, Heparin 5000 u sc q8 Prontonix 40 mg PO daily for GI ppx Dispo: Pending authorization to [facility]. Case discussed with Dr. Aline Shelby PGY1 <Anupam Mireles H - Last Filed: 10/30/18 17:09> Objective - Vital Signs/Intake and Output Vital Signs (last 24 hours): Temp Pulse Resp BP Pulse Ox 98.1 F 98 H 20 112/67 97 10/30/18 16:00 10/30/18 16:00 10/30/18 16:00 10/30/18 16:00 10/30/18 16:00 Intake and Output: 10/30/18 10/30/18 06:59 18:59 Intake Total 360 520 Balance 360 520 - Medications Medications: Current Medications Acetaminophen (Tylenol 325mg Tab) 650 mg PO Q4H PRN PRN Reason: Pain, Mild (1-3) Amantadine HCl (Amantadine 100 Mg Cap) 100 mg PO BID [facility] Last Admin: 10/29/18 17:35 Dose: 100 mg Amlodipine Besylate (Norvasc) 2.5 mg PO DAILY [facility] Last Admin: 10/30/18 11:21 Dose: 2.5 mg Carbidopa/Levodopa (Sinemet) 1 tab PO BID [facility] Last Admin: 10/30/18 11:27 Dose: 1 tab Carbidopa/Levodopa (Sinemet) 1 tab PO DAILY@1200 [facility] Last Admin: 10/30/18 12:46 Dose: 1 tab Carbidopa/Levodopa (Sinemet) 1 tab PO QNOON [facility] Last Admin: 10/30/18 12:45 Dose: 1 tab Carbidopa/Levodopa (Sinemet Cr) 2 tab PO 0800 [facility] Last Admin: 10/30/18 08:38 Dose: 2 tab Clotrimazole (Lotrimin 1%) 0 gm TOP BID [facility] Last Admin: 10/30/18 11:28 Dose: Not Given Dextrose (Dextrose 50% Inj) 0 ml IV STAT PRN; Protocol PRN Reason: Hypoglycemia Protocol Dextrose (Glutose 15) 0 gm PO ONCE PRN; Protocol PRN Reason: Hypoglycemia Protocol Docusate Sodium (Colace) 100 mg PO TID [facility] Last Admin: 10/30/18 14:46 Dose: 100 mg Docusate Sodium (Colace) 100 mg PO BID [facility] Last Admin: 10/30/18 11:22 Dose: Not Given Ferrous Sulfate (Feosol) 325 mg PO DAILY [facility] Last Admin: 10/30/18 11:21 Dose: 325 mg Glucagon (Glucagen Diagnostic Kit) 0 mg IM STAT PRN; Protocol PRN Reason: Hypoglycemia Protocol Heparin Sodium (Porcine) (Heparin) 5,000 units SC Q8 [facility] Last Admin: 10/30/18 14:47 Dose: 5,000 units Home Med (Patient's Own Medication) 1 tab PO DAILY [facility] Last Admin: 10/30/18 11:24 Dose: 1 tab Dextrose (Dextrose 5% In Water 1000 Ml) 1,000 mls @ 0 mls/hr IV .Q0M PRN; Protocol PRN Reason: Hypoglycemia Protocol Insulin Human Regular (Novolin R) 0 unit SC ACHS [facility]; Protocol Last Admin: 10/30/18 16:39 Dose: Not Given Megestrol Acetate (Megace) 400 mg PO DAILY [facility] Last Admin: 10/30/18 11:23 Dose: 400 mg Metformin HCl (Glucophage) 500 mg PO DAILY [facility] Last Admin: 10/30/18 11:21 Dose: 500 mg Pantoprazole Sodium (Protonix Ec Tab) 40 mg PO DAILY [facility] Last Admin: 10/30/18 11:21 Dose: 40 mg Rosuvastatin Calcium (Crestor) 5 mg PO HS [facility] Last Admin: 10/29/18 21:10 Dose: 5 mg Silver Sulfadiazine (Silvadene 1% 20 Gm) 0 ea TOP BID [facility] Last Admin: 10/30/18 11:28 Dose: Not Given - Labs Labs: 10/30/18 06:24 10/30/18 06:24 PT 14.4 SECONDS (9.7-12.2) H 10/24/18 07:15 INR 1.3 10/24/18 07:15 APTT 37 SECONDS (21-34) H 10/24/18 07:15 Attending/Attestation - Attestation I have personally seen and examined this patient.: Yes I have fully participated in the care of the patient.: Yes I have reviewed all pertinent clinical information, including history, physical exam and plan: Yes Notes (Text): 10/30/18 17:07 Medical attending: Patient was seen and examined by me. Agree with the above note by the resident The patient was not in any acute distress when I came and saw her. We are still pending [facility] placement at the moment She has been adequately treated with permethrince cream as well as Ivermectin at this time She is also being seen by wound care for the sacral area wound The patient was also started on Megace today - her appettie has been very minimal With reguards to the Na - it is likley a reflection of her nutrional status Anupam Mireles
[2018-10-31] MEDS: (Novolin R) Insulin Human Regular 100 units/ml vial SC SCH ×4 (08:30→21:43)
[2018-10-31] MEDS: Carbidopa/Levodopa 25/100 CR PO SCH (08:56)
[2018-10-31] MEDS: Megestrol Acetate 40 mg/ml Cup PO SCH (10:38)
[2018-10-31] MEDS: ROPINIROLE 2 MG PO SCH (10:39)
[2018-10-31] MEDS: Pantoprazole 40 mg EC Tab PO SCH (10:41)
[2018-10-31] MEDS: Silver Sulfadiazine 1% Cream (20 gm) TOP SCH ×2 (10:49→17:54)
[2018-10-31] MEDS: Clotrimazole 1% Cream(30 gm) TOP SCH ×2 (10:49→17:53)
[2018-10-31 11:43] LABS: BASO # 0.1 K/uL (0.0-0.2); BASO % 0.9 % (0.0-2.0); EOS # 0.1 K/uL (0.0-0.7); EOS % 0.9 % (0.0-4.0); LYMPH # 1.1 K/uL (1.0-4.3); LYMPH % 12.6 % (20.0-40.0); MEAN CELL VOLUME 83.7 fL (81.0-99.0); MEAN CORPUSCULAR HEMOGLOBIN 26.9 pg (27.0-31.0); MEAN CORPUSCULAR HGB CONC 32.1 g/dL (33.0-37.0); MEAN PLATELET VOLUME 7.5 fL (7.2-11.7); MONO % 11.4 % (0.0-10.0); NEUT # 6.7 K/uL (1.8-7.0); NEUT % 74.2 % (50.0-75.0); RBC 3.73 Mil/uL (3.80-5.20); RED CELL DISTRIBUTION WIDTH 17.5 % (11.5-14.5)
[2018-10-31 12:03] LABS: BLOOD UREA NITROGEN 19 mg/dL (7-17); GFR NON-AFRICAN AMERICAN > 60
[2018-10-31 12:04] LABS: ALB/GLOB RATIO 0.9 (1.0-2.1); ALBUMIN 3.6 g/dL (3.5-5.0); ALT/SGPT < 6 U/L (9-52); AST/SGOT 20 U/L (14-36); CALCIUM 9.4 mg/dl (8.6-10.4)
[2018-10-31] MEDS: CARBIDOPA PO SCH (12:39)
[2018-10-31] MEDS: LEVODOPA PO SCH (12:39)
--- NOTE | 2018-10-31 14:47 | CP.PCM.PN ---
<Ray Shelby - Last Filed: 10/31/18 15:19> Subjective - Date & Time of Evaluation Date of Evaluation: 10/31/18 Time of Evaluation: 09:00 - Subjective Subjective: PGY1 Medicine progress note for Dr. Mazariegos Patient seen and examined at bedside. Pt reports improvement in appetite and strength. Still reports some fatigue. Patient denies chest pain, shortness of breath, abdominal pain, nausea, vomiting, constipation, or diarrhea, numbness or tingling, headaches, dizziness, seizure activity, syncope. Objective - Vital Signs/Intake and Output Vital Signs (last 24 hours): Temp Pulse Resp BP Pulse Ox 97.9 F 90 20 122/76 99 10/31/18 08:28 10/31/18 08:28 10/31/18 08:28 10/31/18 08:28 10/31/18 08:28 Intake and Output: 10/31/18 10/31/18 06:59 18:59 Intake Total 680 Balance 680 - Medications Medications: Current Medications Acetaminophen (Tylenol 325mg Tab) 650 mg PO Q4H PRN PRN Reason: Pain, Mild (1-3) Amantadine HCl (Amantadine 100 Mg Cap) 100 mg PO BID [facility] Last Admin: 10/31/18 10:37 Dose: 100 mg Amlodipine Besylate (Norvasc) 2.5 mg PO DAILY [facility] Last Admin: 10/31/18 10:38 Dose: 2.5 mg Carbidopa/Levodopa (Sinemet) 1 tab PO BID [facility] Last Admin: 10/31/18 10:38 Dose: 1 tab Carbidopa/Levodopa (Sinemet) 1 tab PO DAILY@1200 [facility] Last Admin: 10/31/18 12:39 Dose: 1 tab Carbidopa/Levodopa (Sinemet) 1 tab PO QNOON [facility] Last Admin: 10/31/18 12:39 Dose: 1 tab Carbidopa/Levodopa (Sinemet Cr) 2 tab PO 0800 [facility] Last Admin: 10/31/18 08:56 Dose: 2 tab Clotrimazole (Lotrimin 1%) 0 gm TOP BID [facility] Last Admin: 10/31/18 10:49 Dose: Not Given Dextrose (Dextrose 50% Inj) 0 ml IV STAT PRN; Protocol PRN Reason: Hypoglycemia Protocol Dextrose (Glutose 15) 0 gm PO ONCE PRN; Protocol PRN Reason: Hypoglycemia Protocol Docusate Sodium (Colace) 100 mg PO TID [facility] Last Admin: 10/31/18 13:05 Dose: 100 mg Ferrous Sulfate (Feosol) 325 mg PO DAILY [facility] Last Admin: 10/31/18 10:38 Dose: 325 mg Glucagon (Glucagen Diagnostic Kit) 0 mg IM STAT PRN; Protocol PRN Reason: Hypoglycemia Protocol Heparin Sodium (Porcine) (Heparin) 5,000 units SC Q8 [facility] Last Admin: 10/31/18 13:05 Dose: 5,000 units Home Med (Patient's Own Medication) 1 tab PO DAILY [facility] Last Admin: 10/31/18 10:39 Dose: 1 tab Dextrose (Dextrose 5% In Water 1000 Ml) 1,000 mls @ 0 mls/hr IV .Q0M PRN; Protocol PRN Reason: Hypoglycemia Protocol Insulin Human Regular (Novolin R) 0 unit SC ACHS [facility]; Protocol Last Admin: 10/31/18 12:39 Dose: 6 units Megestrol Acetate (Megace) 400 mg PO DAILY [facility] Last Admin: 10/31/18 10:38 Dose: 400 mg Metformin HCl (Glucophage) 500 mg PO DAILY [facility] Last Admin: 10/31/18 10:38 Dose: 500 mg Pantoprazole Sodium (Protonix Ec Tab) 40 mg PO DAILY [facility] Last Admin: 10/31/18 10:41 Dose: 40 mg Permethrin (Nix Complete Lice Elimination Kit 1%) 59 ml TOP ONCE ONE Stop: 10/31/18 16:01 Rosuvastatin Calcium (Crestor) 5 mg PO HS [facility] Last Admin: 10/30/18 21:45 Dose: 5 mg Silver Sulfadiazine (Silvadene 1% 20 Gm) 0 ea TOP BID [facility] Last Admin: 10/31/18 10:49 Dose: Not Given - Labs Labs: 10/31/18 11:32 10/31/18 11:32 PT 14.4 SECONDS (9.7-12.2) H 10/24/18 07:15 INR 1.3 10/24/18 07:15 APTT 37 SECONDS (21-34) H 10/24/18 07:15 - Additional Findings Additional findings: - Constitutional Appears: Non-toxic, No Acute Distress, Chronically ill - Head Exam Head Exam: NORMAL INSPECTION, NORMOCEPHALIC - Eye Exam Eye Exam: EOMI, Normal appearance. absent: Nystagmus, Scleral icterus - ENT Exam ENT Exam: Mucous Membranes Dry - Respiratory Exam Respiratory Exam: Clear to Auscultation Bilateral, NORMAL BREATHING PATTERN. absent: Rales, Rhonchi, Wheezes - Cardiovascular Exam Cardiovascular Exam: REGULAR RHYTHM, +S1, +S2. absent: Tachycardia - GI/Abdominal Exam GI & Abdominal Exam: Normal Bowel Sounds, Soft. absent: Diminished Bowel Sounds, Distended, Firm, Guarding, Tenderness - Extremities Exam Extremities exam: Positive for: normal inspection. Negative for: calf tenderness, pedal edema Additional comments: Left knee there is immobilizer with scar on medial part of knee; clean incision, no erythema, blood or drainage noted. Nontender on palpation, but with swelling, minimal erythema. Some pain on knee extension. - Neurological Exam Neurological exam: Alert, Oriented x3, resting tremor b/l, tardative dyskinesia, cogwheel rigidity. 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 5/5 strength in upper and lower extremities. - Psychiatric Exam Psychiatric exam: Flat affect, Normal Mood - Skin Skin Exam: Dry, Intact. Deep brain stimulator (right upper chest wall) wires palpated on right posterior neck: nontender, no signs of infection Assessment and Plan - Assessment and Plan (Free Text) Assessment: Patient is a 63 yo female w/ PMH Parkinson's disease, mood disorder, DM2, HLD, and HTN sent from [facility] for hyponatremia. Endorsed weight loss and noted to be anemia. Workup initiated for possible malignancy, but results have been normal. Plan: Electrolyte Disturbances Hyponatremia- resolved. Likely hypovolemic hyponatremia. 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 Na is stable and WNL. S/p Tolvaptan 15 mg PO on admission. Continue to replete electrolytes as needed Nephro consulted, Dr. Nunez. Recommendations appreciated Depakote sprinkles discontinued 10/24/18 Weight Loss/Failure to thrive 80 lb weight loss as per pt/ over [address] w/o (10/21/18) : age related degenerative changes are identified as well as neural stimulator the right basal ganglia as discussed above. No intracranial hemorrhage, mass effect or cortical edema pattern identified. CT Chest, Abd, Pelvis with po and IV contrast (10/22/18): 1. no pulmonary mass or significant lymphadenopathy. mild cardiomegaly. potential pulmonary artery hypertension 2. possible constipation 3. possible antritis or mass affecting pylorus. gi consult advised 4. prior hysterectomy GI, Dr. Bruno consulted, help appreciated. EGD and Colonoscopy unimpressive for masses, see below. Serum immunofixation is positive, [place]/Lambda is normal. Megace 400 mg PO BID for appetite stimulation Anemia of chronic disease or iron deficiency anemia with acute phase reactant elevation H/H is stable Iron <10, TIBC normal (276), %sat 3.62. Ferritin high (452) may be due to acute phase reactant No indication for transfusion at this time Upper endoscopy was well tolerated 10/24/18 Gastritis: biopsied. Small hiatal hernia. No mass. Normal duodenum. Protonix 40 mg PO daily Lower endoscopy to the cecum was well tolerated 10/26/18 Diverticulosis in the sigmoid colon. Nonbleeding internal hemorrhoids. Otherwise normal. No repeat colonoscopy due to age. Parkinson's disease Of note, pt has deep brain stimulator implanted for parkinson's disease implanted in June 2018. Dr. Ramirez Carbidopa/Levodopa 25-100mg 1 tab at 10am, 1.5 tabs at 12pm and 1 tab at 6 pm Carbidopa/Levodopa 50-200mg 1 tab po daily at 8am Amantadine 100mg po bid Ropinirole 2mg (pt's own) po daily Hx of Mood Disorder as per [facility] rehab notes Pt states that the depakote was started at rehab, and not by her PMD. Case discussed with PMD (Dr. Ian Ugarte), who reports pt has no history of seizures, mood disorder, or prescribing the mediation. 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 Bobby Petit as per pt Tylenol PRN for pain Knee immobilizer in place PT/OT evaluation, with plan for further rehab treatment at [facility] in [place] HTN Amlodipine 10mg po daily Well controlled Constipation Colace 100mg po TID Head lice, resolved Identification of body louse on path Pt reports symptoms improving S/p two permethin treatments, with removal of lice x2 S/p ivermectin x 1 treatment Pt has completed treatment for lice Continue contact precautions for now Will give one treatment of permethin today, will cut pt's hair to improve e ffectiveness Prophylaxis SCDs, Heparin 5000 u sc q8 Prontonix 40 mg PO daily for GI ppx Dispo: Pending authorization to [facility]. Case discussed with Dr. Aline Shelby PGY1 <Abebe Mazariegos - Last Filed: 10/31/18 19:49> Objective - Vital Signs/Intake and Output Vital Signs (last 24 hours): Temp Pulse Resp BP Pulse Ox 98.3 F 110 H 20 105/65 96 10/31/18 16:00 10/31/18 16:00 10/31/18 16:00 10/31/18 16:00 10/31/18 16:00 Intake and Output: 10/31/18 11/01/18 18:59 06:59 Intake Total 680 Balance 680 - Medications Medications: Current Medications Acetaminophen (Tylenol 325mg Tab) 650 mg PO Q4H PRN PRN Reason: Pain, Mild (1-3) Amantadine HCl (Amantadine 100 Mg Cap) 100 mg PO BID [facility] Last Admin: 10/31/18 17:52 Dose: 100 mg Amlodipine Besylate (Norvasc) 2.5 mg PO DAILY [facility] Last Admin: 10/31/18 10:38 Dose: 2.5 mg Carbidopa/Levodopa (Sinemet) 1 tab PO BID [facility] Last Admin: 10/31/18 17:52 Dose: 1 tab Carbidopa/Levodopa (Sinemet) 1 tab PO DAILY@1200 [facility] Last Admin: 10/31/18 12:39 Dose: 1 tab Carbidopa/Levodopa (Sinemet) 1 tab PO QNOON [facility] Last Admin: 10/31/18 12:39 Dose: 1 tab Carbidopa/Levodopa (Sinemet Cr) 2 tab PO 0800 [facility] Last Admin: 10/31/18 08:56 Dose: 2 tab Clotrimazole (Lotrimin 1%) 0 gm TOP BID [facility] Last Admin: 10/31/18 17:53 Dose: Not Given Dextrose (Dextrose 50% Inj) 0 ml IV STAT PRN; Protocol PRN Reason: Hypoglycemia Protocol Dextrose (Glutose 15) 0 gm PO ONCE PRN; Protocol PRN Reason: Hypoglycemia Protocol Docusate Sodium (Colace) 100 mg PO TID [facility] Last Admin: 10/31/18 17:52 Dose: 100 mg Ferrous Sulfate (Feosol) 325 mg PO DAILY [facility] Last Admin: 10/31/18 10:38 Dose: 325 mg Glucagon (Glucagen Diagnostic Kit) 0 mg IM STAT PRN; Protocol PRN Reason: Hypoglycemia Protocol Heparin Sodium (Porcine) (Heparin) 5,000 units SC Q8 [facility] Last Admin: 10/31/18 13:05 Dose: 5,000 units Home Med (Patient's Own Medication) 1 tab PO DAILY [facility] Last Admin: 10/31/18 10:39 Dose: 1 tab Dextrose (Dextrose 5% In Water 1000 Ml) 1,000 mls @ 0 mls/hr IV .Q0M PRN; Protocol PRN Reason: Hypoglycemia Protocol Insulin Human Regular (Novolin R) 0 unit SC ACHS [facility]; Protocol Last Admin: 10/31/18 17:53 Dose: 2 units Megestrol Acetate (Megace) 400 mg PO DAILY [facility] Last Admin: 10/31/18 10:38 Dose: 400 mg Metformin HCl (Glucophage) 500 mg PO DAILY [facility] Last Admin: 10/31/18 10:38 Dose: 500 mg Pantoprazole Sodium (Protonix Ec Tab) 40 mg PO DAILY [facility] Last Admin: 10/31/18 10:41 Dose: 40 mg Rosuvastatin Calcium (Crestor) 5 mg PO HS [facility] Last Admin: 10/30/18 21:45 Dose: 5 mg Silver Sulfadiazine (Silvadene 1% 20 Gm) 0 ea TOP BID [facility] Last Admin: 10/31/18 17:54 Dose: Not Given - Labs Labs: 10/31/18 11:32 10/31/18 11:32 PT 14.4 SECONDS (9.7-12.2) H 10/24/18 07:15 INR 1.3 10/24/18 07:15 APTT 37 SECONDS (21-34) H 10/24/18 07:15 Attending/Attestation - Attestation I have personally seen and examined this patient.: Yes I have fully participated in the care of the patient.: Yes I have reviewed all pertinent clinical information, including history, physical exam and plan: Yes Notes (Text): Seen and examined today. Patient is awake and oriented,eating better,sodium improved d/w SW .she was not accepted to rehab due to head lice and isolation.d/w RN significant lice removed on Tuesday. Noted lice last night. we examined the dipak ent today. only lice noted,RN examined her whole body for lice. Spoke to patient and her about hair cut. They agreed for a hair cut to improve her lice. we will treat with permethin tomorrow.
[2018-10-31] MEDS ORDERED: Permethrin 1% Kit 59 ML BOTTLE TOP ONE (16:00)
[2018-11-01 07:18] LABS: BASO # 0.1 K/uL (0.0-0.2); BASO % 0.8 % (0.0-2.0); EOS # 0.1 K/uL (0.0-0.7); EOS % 1.2 % (0.0-4.0); HEMOGLOBIN 9.9 g/dL (11.0-16.0); LYMPH # 2.3 K/uL (1.0-4.3); LYMPH % 22.5 % (20.0-40.0); MEAN CORPUSCULAR HGB CONC 32.6 g/dL (33.0-37.0); MEAN PLATELET VOLUME 7.6 fL (7.2-11.7); MONO # 1.2 K/uL (0.0-0.8); MONO % 12.3 % (0.0-10.0); NEUT # 6.4 K/uL (1.8-7.0); NEUT % 63.2 % (50.0-75.0); RBC 3.67 Mil/uL (3.80-5.20); RED CELL DISTRIBUTION WIDTH 17.2 % (11.5-14.5); WHITE BLOOD COUNT 10.1 K/uL (4.8-10.8)
[2018-11-01 07:42] LABS: ALB/GLOB RATIO 0.9 (1.0-2.1); ALBUMIN 3.5 g/dL (3.5-5.0); ALT/SGPT < 6 U/L (9-52); AST/SGOT 20 U/L (14-36); BLOOD UREA NITROGEN 17 mg/dL (7-17); CALCIUM 9.5 mg/dl (8.6-10.4); GFR NON-AFRICAN AMERICAN > 60
[2018-11-01] MEDS: (Novolin R) Insulin Human Regular 100 units/ml vial SC SCH ×4 (08:16→21:40)
[2018-11-01] MEDS: Carbidopa/Levodopa 25/100 CR PO SCH (08:51)
[2018-11-01] MEDS: Megestrol Acetate 40 mg/ml Cup PO SCH (10:16)
[2018-11-01] MEDS: Pantoprazole 40 mg EC Tab PO SCH (10:17)
[2018-11-01] MEDS: Clotrimazole 1% Cream(30 gm) TOP SCH ×2 (10:19→21:39)
[2018-11-01] MEDS: Magnesium Sulfate 1 gm in D5W 1 GM/100 ML BAG IVPB SCH ×2 (10:19→11:14)
[2018-11-01] MEDS: Silver Sulfadiazine 1% Cream (20 gm) TOP SCH ×2 (10:19→21:40)
[2018-11-01] MEDS: ROPINIROLE 2 MG PO SCH (10:22)
[2018-11-01] MEDS: LEVODOPA PO SCH (12:12)
[2018-11-01] MEDS: CARBIDOPA PO SCH (12:12)
--- NOTE | 2018-11-01 16:53 | CP.PCM.PN ---
<Ray Shelby - Last Filed: 11/01/18 17:14> Subjective - Date & Time of Evaluation Date of Evaluation: 11/01/18 Time of Evaluation: 10:00 - Subjective Subjective: PGY1 Medicine progress note for Dr. Soto Patient seen and examined at bedside. Pt reports continued improvement in appetite. Still has some fatigue. Patient denies chest pain, shortness of breath, abdominal pain, nausea, vomiting, constipation, or diarrhea, numbness or tingling, headaches, dizziness, seizure activity, syncope. Hair has been cut short, denies itching of the scalp or body. Objective - Vital Signs/Intake and Output Vital Signs (last 24 hours): Temp Pulse Resp BP Pulse Ox 98.4 F 99 H 20 113/71 98 11/01/18 15:00 11/01/18 15:00 11/01/18 15:00 11/01/18 15:00 11/01/18 15:00 Intake and Output: 11/01/18 11/01/18 06:59 18:59 Intake Total 500 480 Balance 500 480 - Medications Medications: Current Medications Acetaminophen (Tylenol 325mg Tab) 650 mg PO Q4H PRN PRN Reason: Pain, Mild (1-3) Amantadine HCl (Amantadine 100 Mg Cap) 100 mg PO BID [facility] Last Admin: 11/01/18 10:22 Dose: 100 mg Amlodipine Besylate (Norvasc) 2.5 mg PO DAILY [facility] Last Admin: 11/01/18 10:16 Dose: 2.5 mg Carbidopa/Levodopa (Sinemet) 1 tab PO BID [facility] Last Admin: 11/01/18 10:16 Dose: 1 tab Carbidopa/Levodopa (Sinemet) 1 tab PO DAILY@1200 [facility] Last Admin: 11/01/18 12:11 Dose: 1 tab Carbidopa/Levodopa (Sinemet) 1 tab PO QNOON [facility] Last Admin: 11/01/18 12:12 Dose: 1 tab Carbidopa/Levodopa (Sinemet Cr) 2 tab PO 0800 [facility] Last Admin: 11/01/18 08:51 Dose: 2 tab Clotrimazole (Lotrimin 1%) 0 gm TOP BID [facility] Last Admin: 11/01/18 10:19 Dose: Not Given Dextrose (Dextrose 50% Inj) 0 ml IV STAT PRN; Protocol PRN Reason: Hypoglycemia Protocol Dextrose (Glutose 15) 0 gm PO ONCE PRN; Protocol PRN Reason: Hypoglycemia Protocol Docusate Sodium (Colace) 100 mg PO TID [facility] Last Admin: 11/01/18 14:58 Dose: 100 mg Enoxaparin Sodium (Lovenox) 40 mg SC DAILY [facility] Ferrous Sulfate (Feosol) 325 mg PO DAILY [facility] Last Admin: 11/01/18 10:17 Dose: 325 mg Glucagon (Glucagen Diagnostic Kit) 0 mg IM STAT PRN; Protocol PRN Reason: Hypoglycemia Protocol Home Med (Patient's Own Medication) 1 tab PO DAILY [facility] Last Admin: 11/01/18 10:22 Dose: 1 tab Dextrose (Dextrose 5% In Water 1000 Ml) 1,000 mls @ 0 mls/hr IV .Q0M PRN; Protocol PRN Reason: Hypoglycemia Protocol Insulin Human Regular (Novolin R) 0 unit SC ACHS [facility]; Protocol Last Admin: 11/01/18 12:12 Dose: 2 units Megestrol Acetate (Megace) 400 mg PO DAILY [facility] Last Admin: 11/01/18 10:16 Dose: 400 mg Metformin HCl (Glucophage) 500 mg PO DAILY [facility] Last Admin: 11/01/18 10:17 Dose: 500 mg Pantoprazole Sodium (Protonix Ec Tab) 40 mg PO DAILY [facility] Last Admin: 11/01/18 10:17 Dose: 40 mg Rosuvastatin Calcium (Crestor) 5 mg PO HS [facility] Last Admin: 10/31/18 21:42 Dose: 5 mg Silver Sulfadiazine (Silvadene 1% 20 Gm) 0 ea TOP BID [facility] Last Admin: 11/01/18 10:19 Dose: Not Given - Labs Labs: 11/01/18 06:58 11/01/18 06:58 PT 14.4 SECONDS (9.7-12.2) H 10/24/18 07:15 INR 1.3 10/24/18 07:15 APTT 37 SECONDS (21-34) H 10/24/18 07:15 - Additional Findings Additional findings: - Constitutional Appears: Non-toxic, No Acute Distress, Chronically ill - Head Exam Head Exam: NORMAL INSPECTION, NORMOCEPHALIC - Eye Exam Eye Exam: EOMI, Normal appearance. absent: Nystagmus, Scleral icterus - ENT Exam ENT Exam: Mucous Membranes moist - Respiratory Exam Respiratory Exam: Clear to Auscultation Bilateral, NORMAL BREATHING PATTERN. absent: Rales, Rhonchi, Wheezes - Cardiovascular Exam Cardiovascular Exam: REGULAR RHYTHM, +S1, +S2. absent: Tachycardia - GI/Abdominal Exam GI & Abdominal Exam: Normal Bowel Sounds, Soft. absent: Diminished Bowel Sounds, Distended, Firm, Guarding, Tenderness - Extremities Exam Extremities exam: Positive for: normal inspection. Negative for: calf tenderness, pedal edema Additional comments: Left knee there is immobilizer with scar on medial part of knee; clean incision, no erythema, blood or drainage noted. Nontender on palpation, but with swelling, minimal erythema, some warmth. Some pain on knee extension. - Neurological Exam Neurological exam: Alert, Oriented x3, resting tremor b/l, tardative dyskinesia, cogwheel rigidity. - Psychiatric Exam Psychiatric exam: Flat affect, Normal Mood - Skin Skin Exam: Dry, Intact. Deep brain stimulator (right upper chest wall) wires palpated on right posterior neck: nontender, no signs of infection Assessment and Plan - Assessment and Plan (Free Text) Assessment: Patient is a 63 yo female w/ PMH Parkinson's disease, mood disorder, DM2, HLD, and HTN sent from [facility] for hyponatremia. Endorsed weight loss and noted to be anemia. Workup initiated for possible malignancy, but results have been normal. Plan: Electrolyte Disturbances Hyponatremia- resolved. Likely hypovolemic hyponatremia. 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 Na is stable and WNL. S/p Tolvaptan 15 mg PO on admission. Continue to replete electrolytes as needed Repleted Mg 1.5 today with 2g IVPB Nephro consulted, Dr. Nunez. Recommendations appreciated Depakote sprinkles discontinued 10/24/18 Weight Loss/Failure to thrive 80 lb weight loss as per pt/ over [address] w/o (10/21/18) : age related degenerative changes are identified as well as neural stimulator the right basal ganglia as discussed above. No intracranial hemorrhage, mass effect or cortical edema pattern identified. CT Chest, Abd, Pelvis with po and IV contrast (10/22/18): 1. no pulmonary mass or significant lymphadenopathy. mild cardiomegaly. potential pulmonary artery hypertension 2. possible constipation 3. possible antritis or mass affecting pylorus. gi consult advised 4. prior hysterectomy GI, Dr. Bruno consulted, help appreciated. EGD and Colonoscopy unimpressive for masses, see below. Serum immunofixation is positive, [place]/Lambda is normal. Megace 400 mg PO BID for appetite stimulation Good results so far Anemia of chronic disease or iron deficiency anemia with acute phase reactant elevation H/H is stable Iron <10, TIBC normal (276), %sat 3.62. Ferritin high (452) may be due to acute phase reactant No indication for transfusion at this time Upper endoscopy was well tolerated 10/24/18 Gastritis: biopsied. Small hiatal hernia. No mass. Normal duodenum. Protonix 40 mg PO daily Lower endoscopy to the cecum was well tolerated 10/26/18 Diverticulosis in the sigmoid colon. Nonbleeding internal hemorrhoids. Otherwise normal. No repeat colonoscopy due to age. Parkinson's disease Of note, pt has deep brain stimulator implanted for parkinson's disease implanted in June 2018. Dr. Ramirez Carbidopa/Levodopa 25-100mg 1 tab at 10am, 1.5 tabs at 12pm and 1 tab at 6 pm Carbidopa/Levodopa 50-200mg 1 tab po daily at 8am Amantadine 100mg po bid Ropinirole 2mg (pt's own) po daily Hx of Mood Disorder as per [facility] rehab notes Pt states that the depakote was started at rehab, and not by her PMD. Case d iscussed with PMD (Dr. Ian Ugarte), who reports pt has no history of seizures, mood disorder, or prescribing the mediation. 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 Bobby Petit as per pt Tylenol PRN for pain Knee immobilizer in place PT HTN Amlodipine 10mg po daily Well controlled Constipation Colace 100mg po TID Head lice, resolved Identification of body louse on path Pt reports symptoms resolved S/p three permethin treatments S/p ivermectin x 1 treatment Pt has completed treatment for lice Contact precautions discontinued Prophylaxis SCDs, Heparin 5000 u sc q8 Prontonix 40 mg PO daily for GI ppx Dispo: Pt denied from [facility]. Peer to peer requested. Will follow up tomorrow morning. Case discussed with Dr. Soto <Zain Soto - Last Filed: 11/01/18 17:26> Objective - Vital Signs/Intake and Output Vital Signs (last 24 hours): Temp Pulse Resp BP Pulse Ox 98.4 F 99 H 20 113/71 98 11/01/18 15:00 11/01/18 15:00 11/01/18 15:00 11/01/18 15:00 11/01/18 15:00 Intake and Output: 11/01/18 11/01/18 06:59 18:59 Intake Total 500 480 Balance 500 480 - Medications Medications: Current Medications Acetaminophen (Tylenol 325mg Tab) 650 mg PO Q4H PRN PRN Reason: Pain, Mild (1-3) Amantadine HCl (Amantadine 100 Mg Cap) 100 mg PO BID [facility] Last Admin: 11/01/18 10:22 Dose: 100 mg Amlodipine Besylate (Norvasc) 2.5 mg PO DAILY [facility] Last Admin: 11/01/18 10:16 Dose: 2.5 mg Carbidopa/Levodopa (Sinemet) 1 tab PO BID [facility] Last Admin: 11/01/18 10:16 Dose: 1 tab Carbidopa/Levodopa (Sinemet) 1 tab PO DAILY@1200 [facility] Last Admin: 11/01/18 12:11 Dose: 1 tab Carbidopa/Levodopa (Sinemet) 1 tab PO QNOON [facility] Last Admin: 11/01/18 12:12 Dose: 1 tab Carbidopa/Levodopa (Sinemet Cr) 2 tab PO 0800 [facility] Last Admin: 11/01/18 08:51 Dose: 2 tab Clotrimazole (Lotrimin 1%) 0 gm TOP BID [facility] Last Admin: 11/01/18 10:19 Dose: Not Given Dextrose (Dextrose 50% Inj) 0 ml IV STAT PRN; Protocol PRN Reason: Hypoglycemia Protocol Dextrose (Glutose 15) 0 gm PO ONCE PRN; Protocol PRN Reason: Hypoglycemia Protocol Docusate Sodium (Colace) 100 mg PO TID [facility] Last Admin: 11/01/18 14:58 Dose: 100 mg Enoxaparin Sodium (Lovenox) 40 mg SC DAILY [facility] Ferrous Sulfate (Feosol) 325 mg PO DAILY [facility] Last Admin: 11/01/18 10:17 Dose: 325 mg Glucagon (Glucagen Diagnostic Kit) 0 mg IM STAT PRN; Protocol PRN Reason: Hypoglycemia Protocol Home Med (Patient's Own Medication) 1 tab PO DAILY [facility] Last Admin: 11/01/18 10:22 Dose: 1 tab Dextrose (Dextrose 5% In Water 1000 Ml) 1,000 mls @ 0 mls/hr IV .Q0M PRN; Protocol PRN Reason: Hypoglycemia Protocol Insulin Human Regular (Novolin R) 0 unit SC ACHS [facility]; Protocol Last Admin: 11/01/18 12:12 Dose: 2 units Megestrol Acetate (Megace) 400 mg PO DAILY [facility] Last Admin: 11/01/18 10:16 Dose: 400 mg Metformin HCl (Glucophage) 500 mg PO DAILY [facility] Last Admin: 11/01/18 10:17 Dose: 500 mg Pantoprazole Sodium (Protonix Ec Tab) 40 mg PO DAILY [facility] Last Admin: 11/01/18 10:17 Dose: 40 mg Rosuvastatin Calcium (Crestor) 5 mg PO HS [facility] Last Admin: 10/31/18 21:42 Dose: 5 mg Silver Sulfadiazine (Silvadene 1% 20 Gm) 0 ea TOP BID [facility] Last Admin: 11/01/18 10:19 Dose: Not Given - Labs Labs: 11/01/18 06:58 11/01/18 06:58 PT 14.4 SECONDS (9.7-12.2) H 10/24/18 07:15 INR 1.3 10/24/18 07:15 APTT 37 SECONDS (21-34) H 10/24/18 07:15 Attending/Attestation - Attestation I have personally seen and examined this patient.: Yes I have fully participated in the care of the patient.: Yes I have reviewed all pertinent clinical information, including history, physical exam and plan: Yes Notes (Text): Patient seen and examined with the residents, agree with above No acute distress or other complaints offered Discharge planning which has been difficult in regards to placement SW and CM for safe discharge Will change VTE ppx to SQ Lovenox qd.
[2018-11-02 06:23] LABS: BASO # 0.1 K/uL (0.0-0.2); BASO % 0.7 % (0.0-2.0); EOS # 0.1 K/uL (0.0-0.7); EOS % 0.8 % (0.0-4.0); HEMOGLOBIN 10.6 g/dL (11.0-16.0); LYMPH # 2.1 K/uL (1.0-4.3); LYMPH % 20.4 % (20.0-40.0); MEAN CELL VOLUME 82.5 fL (81.0-99.0); MEAN CORPUSCULAR HEMOGLOBIN 27.1 pg (27.0-31.0); MEAN CORPUSCULAR HGB CONC 32.8 g/dL (33.0-37.0); MEAN PLATELET VOLUME 7.4 fL (7.2-11.7); MONO # 1.2 K/uL (0.0-0.8); MONO % 11.3 % (0.0-10.0); NEUT # 6.9 K/uL (1.8-7.0); NEUT % 66.8 % (50.0-75.0); RBC 3.93 Mil/uL (3.80-5.20); RED CELL DISTRIBUTION WIDTH 17.7 % (11.5-14.5); WHITE BLOOD COUNT 10.4 K/uL (4.8-10.8)
[2018-11-02 06:47] LABS: ALB/GLOB RATIO 0.9 (1.0-2.1); ALBUMIN 3.7 g/dL (3.5-5.0); ALT/SGPT < 6 U/L (9-52); AST/SGOT 33 U/L (14-36); BLOOD UREA NITROGEN 15 mg/dL (7-17); CALCIUM 9.8 mg/dl (8.6-10.4); GFR NON-AFRICAN AMERICAN > 60
[2018-11-02] MEDS: (Novolin R) Insulin Human Regular 100 units/ml vial SC SCH ×4 (08:04→21:38)
[2018-11-02] MEDS: Carbidopa/Levodopa 25/100 CR PO SCH (08:29)
--- NOTE | 2018-11-02 09:15 | CP.PCM.PN ---
Subjective - Date & Time of Evaluation Date of Evaluation: 11/02/18 Time of Evaluation: 09:00 - Subjective Subjective: PGY1 Medicine progress note for Dr. Goodwin Patient seen and examined at bedside. Pt reports continued improvement in appetite. Patient denies chest pain, shortness of breath, abdominal pain, nausea, vomiting, constipation, or diarrhea, numbness or tingling, headaches, dizziness, seizure activity, syncope. Hair has been cut short, denies itching of the scalp or body. Pt has not had a BM in the past 2 days but is passing gas without problems. Objective - Vital Signs/Intake and Output Vital Signs (last 24 hours): Temp Pulse Resp BP Pulse Ox 98.9 F 97 H 20 117/71 98 11/02/18 08:04 11/02/18 08:04 11/02/18 08:04 11/02/18 08:04 11/02/18 08:04 Intake and Output: 11/02/18 11/02/18 06:59 18:59 Intake Total 250 Balance 250 - Medications Medications: Current Medications Acetaminophen (Tylenol 325mg Tab) 650 mg PO Q4H PRN PRN Reason: Pain, Mild (1-3) Amantadine HCl (Amantadine 100 Mg Cap) 100 mg PO BID [facility] Last Admin: 11/01/18 17:25 Dose: 100 mg Amlodipine Besylate (Norvasc) 2.5 mg PO DAILY [facility] Last Admin: 11/01/18 10:16 Dose: 2.5 mg Carbidopa/Levodopa (Sinemet) 1 tab PO BID [facility] Last Admin: 11/01/18 17:24 Dose: 1 tab Carbidopa/Levodopa (Sinemet) 1 tab PO DAILY@1200 [facility] Last Admin: 11/01/18 12:11 Dose: 1 tab Carbidopa/Levodopa (Sinemet) 1 tab PO QNOON [facility] Last Admin: 11/01/18 12:12 Dose: 1 tab Carbidopa/Levodopa (Sinemet Cr) 2 tab PO 0800 [facility] Last Admin: 11/02/18 08:29 Dose: 2 tab Clotrimazole (Lotrimin 1%) 0 gm TOP BID [facility] Last Admin: 11/01/18 21:39 Dose: Not Given Dextrose (Dextrose 50% Inj) 0 ml IV STAT PRN; Protocol PRN Reason: Hypoglycemia Protocol Dextrose (Glutose 15) 0 gm PO ONCE PRN; Protocol PRN Reason: Hypoglycemia Protocol Docusate Sodium (Colace) 100 mg PO TID [facility] Last Admin: 11/01/18 17:25 Dose: 100 mg Enoxaparin Sodium (Lovenox) 40 mg SC DAILY [facility] Ferrous Sulfate (Feosol) 325 mg PO DAILY [facility] Last Admin: 11/01/18 10:17 Dose: 325 mg Glucagon (Glucagen Diagnostic Kit) 0 mg IM STAT PRN; Protocol PRN Reason: Hypoglycemia Protocol Home Med (Patient's Own Medication) 1 tab PO DAILY [facility] Last Admin: 11/01/18 10:22 Dose: 1 tab Dextrose (Dextrose 5% In Water 1000 Ml) 1,000 mls @ 0 mls/hr IV .Q0M PRN; Protocol PRN Reason: Hypoglycemia Protocol Insulin Human Regular (Novolin R) 0 unit SC ACHS [facility]; Protocol Last Admin: 11/02/18 08:04 Dose: Not Given Megestrol Acetate (Megace) 400 mg PO DAILY [facility] Last Admin: 11/01/18 10:16 Dose: 400 mg Metformin HCl (Glucophage) 500 mg PO DAILY [facility] Last Admin: 11/01/18 10:17 Dose: 500 mg Pantoprazole Sodium (Protonix Ec Tab) 40 mg PO DAILY [facility] Last Admin: 11/01/18 10:17 Dose: 40 mg Rosuvastatin Calcium (Crestor) 5 mg PO HS [facility] Last Admin: 11/01/18 21:39 Dose: 5 mg Silver Sulfadiazine (Silvadene 1% 20 Gm) 0 ea TOP BID [facility] Last Admin: 11/01/18 21:40 Dose: Not Given - Labs Labs: 11/02/18 06:09 11/02/18 06:09 PT 14.4 SECONDS (9.7-12.2) H 10/24/18 07:15 INR 1.3 10/24/18 07:15 APTT 37 SECONDS (21-34) H 10/24/18 07:15 - Additional Findings Additional findings: - Constitutional Appears: Non-toxic, No Acute Distress, Chronically ill - Head Exam Head Exam: NORMAL INSPECTION, NORMOCEPHALIC - Eye Exam Eye Exam: EOMI, Normal appearance. absent: Nystagmus, Scleral icterus - ENT Exam ENT Exam: Mucous Membranes moist - Respiratory Exam Respiratory Exam: Clear to Auscultation Bilateral, NORMAL BREATHING PATTERN. absent: Rales, Rhonchi, Wheezes - Cardiovascular Exam Cardiovascular Exam: REGULAR RHYTHM, +S1, +S2. absent: Tachycardia - GI/Abdominal Exam GI & Abdominal Exam: Normal Bowel Sounds, Soft. absent: Diminished Bowel Sounds, Distended, Firm, Guarding, Tenderness - Extremities Exam Extremities exam: Positive for: normal inspection. Negative for: calf tenderness, pedal edema Additional comments: Left knee there is immobilizer with scar on medial part of knee; clean incision, no erythema, blood or drainage noted. Nontender on palpation, but with swelling, minimal erythema, some warmth. Some pain on knee extension. - Neurological Exam Neurological exam: Alert, Oriented x3, resting tremor b/l, tardative dyskinesia, cogwheel rigidity. - Psychiatric Exam Psychiatric exam: Flat affect, Normal Mood - Skin Skin Exam: Dry, Intact. Deep brain stimulator (right upper chest wall) wires palpated on right posterior neck: nontender, no signs of infection Assessment and Plan - Assessment and Plan (Free Text) Assessment: Patient is a 63 yo female w/ PMH Parkinson's disease, mood disorder, DM2, HLD, and HTN sent from [facility] for hyponatremia. Endorsed weight loss and noted to be anemia. Workup initiated for possible malignancy, but results have been normal. Plan: Electrolyte Disturbances Hyponatremia- resolved. Likely hypovolemic hyponatremia. 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 Na is stable and WNL. S/p Tolvaptan 15 mg PO on admission. Continue to replete electrolytes as needed Repleted Mg 1.5 today with 2g IVPB Nephro consulted, Dr. Nunez. Recommendations appreciated Depakote sprinkles discontinued 10/24/18 Weight Loss/Failure to thrive 80 lb weight loss as per pt/ over [address] w/o (10/21/18) : age related degenerative changes are identified as well as neural stimulator the right basal ganglia as discussed above. No intracranial hemorrhage, mass effect or cortical edema pattern identified. CT Chest, Abd, Pelvis with po and IV contrast (10/22/18): 1. no pulmonary mass or significant lymphadenopathy. mild cardiomegaly. potential pulmonary artery hypertension 2. possible constipation 3. possible antritis or mass affecting pylorus. gi consult advised 4. prior hysterectomy GI, Dr. Bruno consulted, help appreciated. EGD and Colonoscopy unimpressive for masses, see below. Serum immunofixation is positive, [place]/Lambda is normal. Megace 400 mg PO BID for appetite stimulation Good results so far Anemia of chronic disease or iron deficiency anemia with acute phase reactant elevation H/H is stable Iron <10, TIBC normal (276), %sat 3.62. Ferritin high (452) may be due to acute phase reactant No indication for transfusion at this time Upper endoscopy was well tolerated 10/24/18 Gastritis: biopsied. Small hiatal hernia. No mass. Normal duodenum. Protonix 40 mg PO daily Lower endoscopy to the cecum was well tolerated 10/26/18 Diverticulosis in the sigmoid colon. Nonbleeding internal hemorrhoids. Otherwise normal. No repeat colonoscopy due to age. Parkinson's disease Of note, pt has deep brain stimulator implanted for parkinson's disease implanted in June 2018. Dr. Ramirez Carbidopa/Levodopa 25-100mg 1 tab at 10am, 1.5 tabs at 12pm and 1 tab at 6 pm Carbidopa/Levodopa 50-200mg 1 tab po daily at 8am Amantadine 100mg po bid Ropinirole 2mg (pt's own) po daily Hx of Mood Disorder as per [facility] rehab notes Pt states that the depakote was started at rehab, and not by her PMD. Case discussed with PMD (Dr. Ian Ugarte), who reports pt has no history of seizures, mood disorder, or prescribing the mediation. 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 Bobby Petit as per pt Orthopedic surgery, Dr. Guerrero, consulted. Recommendations appreciated. F/u left knee x-ray Tylenol PRN for pain Knee immobilizer in place PT HTN Amlodipine 10mg po daily Well controlled Constipation Colace 100mg po TID Head lice, resolved Identification of body louse on path Pt reports symptoms resolved S/p three permethin treatments S/p ivermectin x 1 treatment Pt has completed treatment for lice Contact precautions discontinued Prophylaxis SCDs, Heparin 5000 u sc q8 Prontonix 40 mg PO daily for GI ppx Dispo: Pending [facility] placment. Case discussed with Dr. Goodwin
[2018-11-02] MEDS: Pantoprazole 40 mg EC Tab PO SCH (10:14)
[2018-11-02] MEDS: ROPINIROLE 2 MG PO SCH (10:15)
[2018-11-02] MEDS: Megestrol Acetate 40 mg/ml Cup PO SCH (10:16)
[2018-11-02] MEDS: Enoxaparin 40 mg Syringe SC SCH (10:17)
[2018-11-02] MEDS: Clotrimazole 1% Cream(30 gm) TOP SCH ×2 (10:29→21:38)
[2018-11-02] MEDS: Silver Sulfadiazine 1% Cream (20 gm) TOP SCH ×2 (10:30→21:38)
--- NOTE | 2018-11-02 11:45 | CP.PCM.CON ---
History of Present Illness - History of Present Illness History of Present Illness: Orthopedic consultation Dr. Guerrero 63F complains of left knee pain x1 day. She says she has had knee pain since having surgery on left patella at end of August at [facility]. She has been wearing her brace but takes it off because it hurts some times. She says her last follow up was a few weeks prior to admission. Denies numbness/tingling. Denies CP/SOB/dizziness. Review of Systems - Review of Systems All systems: reviewed and no additional remarkable complaints except - Musculoskeletal Musculoskeletal: As Per HPI - Neurological Neurological: As Per HPI Past Patient History - Past Medical History & Family History Past Medical History?: Yes Past Family History: Reviewed and not pertinent - Past Social History Smoking Status: Never Smoked - CARDIAC Hx Hypertension: Yes - NEUROLOGICAL Hx Parkinson's Disease: Yes - ENDOCRINE/METABOLIC Hx Diabetes Mellitus Type 2: Yes - HEMATOLOGICAL/ONCOLOGICAL Hx Anemia: Yes Hx Cirrhosis: No Hx Hepatitis A: No Hx Hepatitis B: No Hx Hepatitis C: No Hx Human Immunodeficiency Virus (HIV): No - MUSCULOSKELETAL/RHEUMATOLOGICAL Hx Falls: Yes - PSYCHIATRIC Hx Substance Use: No - SURGICAL HISTORY Hx Surgeries: Yes Hx Orthopedic Surgery: Yes (right patella fracture) - ANESTHESIA Hx Anesthesia Reactions: Yes Hx Malignant Hyperthermia: No Meds Home Medications: Home Medication List Medication Instructions Recorded Confirmed Type RX: Bisacodyl [Dulcolax] 10 mg PO ONCE ect 10/27/18 Rx RX: Bisacodyl [Dulcolax] 10 mg PO ONCE ect 10/27/18 Rx RX: Carbidopa/Levodopa 12.5/50 mg 1 tab PO QNOON tab 10/27/18 Rx [Sinemet] RX: Carbidopa/Levodopa 25/100 mg 1 tab PO BID tab 10/27/18 Rx [Sinemet] RX: Carbidopa/Levodopa 25/100 mg 1 tab PO DAILY@1200 tab 10/27/18 Rx [Sinemet] RX: Docusate [Colace] 100 mg PO BID cap 10/27/18 Rx RX: Ferrous Sulfate [Feosol] 325 mg PO DAILY tab 10/27/18 Rx RX: Heparin 5,000 units SC Q8 vial 10/27/18 Rx RX: Pantoprazole [Protonix EC Tab] 40 mg PO DAILY ect 10/27/18 Rx RX: Permethrin 1% Kit [Nix 59 ml TOP ONCE bottle 10/27/18 Rx Complete Lice Elimination Kit 1%] Allergies/Adverse Reactions: Allergies Allergy/AdvReac Type Severity Reaction Status Date / Time No Known Allergies Allergy Unverified 10/20/18 21:30 - Medications Medications: Current Medications Acetaminophen (Tylenol 325mg Tab) 650 mg PO Q4H PRN PRN Reason: Pain, Mild (1-3) Amantadine HCl (Amantadine 100 Mg Cap) 100 mg PO BID [facility] Last Admin: 11/02/18 10:31 Dose: 100 mg Amlodipine Besylate (Norvasc) 2.5 mg PO DAILY [facility] Last Admin: 11/02/18 10:11 Dose: 2.5 mg Carbidopa/Levodopa (Sinemet) 1 tab PO BID [facility] Last Admin: 11/02/18 10:09 Dose: 1 tab Carbidopa/Levodopa (Sinemet) 1 tab PO DAILY@1200 [facility] Last Admin: 11/01/18 12:11 Dose: 1 tab Carbidopa/Levodopa (Sinemet) 1 tab PO QNOON [facility] Last Admin: 11/01/18 12:12 Dose: 1 tab Carbidopa/Levodopa (Sinemet Cr) 2 tab PO 0800 [facility] Last Admin: 11/02/18 08:29 Dose: 2 tab Clotrimazole (Lotrimin 1%) 0 gm TOP BID [facility] Last Admin: 11/02/18 10:29 Dose: Not Given Dextrose (Dextrose 50% Inj) 0 ml IV STAT PRN; Protocol PRN Reason: Hypoglycemia Protocol Dextrose (Glutose 15) 0 gm PO ONCE PRN; Protocol PRN Reason: Hypoglycemia Protocol Docusate Sodium (Colace) 100 mg PO TID [facility] Last Admin: 11/02/18 10:31 Dose: 100 mg Enoxaparin Sodium (Lovenox) 40 mg SC DAILY [facility] Last Admin: 11/02/18 10:17 Dose: 40 mg Ferrous Sulfate (Feosol) 325 mg PO DAILY [facility] Last Admin: 11/02/18 10:13 Dose: 325 mg Glucagon (Glucagen Diagnostic Kit) 0 mg IM STAT PRN; Protocol PRN Reason: Hypoglycemia Protocol Home Med (Patient's Own Medication) 1 tab PO DAILY [facility] Last Admin: 11/02/18 10:15 Dose: 1 tab Dextrose (Dextrose 5% In Water 1000 Ml) 1,000 mls @ 0 mls/hr IV .Q0M PRN; Protocol PRN Reason: Hypoglycemia Protocol Insulin Human Regular (Novolin R) 0 unit SC ACHS [facility]; Protocol Last Admin: 11/02/18 08:04 Dose: Not Given Megestrol Acetate (Megace) 400 mg PO DAILY [facility] Last Admin: 11/02/18 10:16 Dose: 400 mg Metformin HCl (Glucophage) 500 mg PO DAILY [facility] Last Admin: 11/02/18 10:23 Dose: 500 mg Pantoprazole Sodium (Protonix Ec Tab) 40 mg PO DAILY [facility] Last Admin: 11/02/18 10:14 Dose: 40 mg Rosuvastatin Calcium (Crestor) 5 mg PO HS [facility] Last Admin: 11/01/18 21:39 Dose: 5 mg Silver Sulfadiazine (Silvadene 1% 20 Gm) 0 ea TOP BID [facility] Last Admin: 11/02/18 10:30 Dose: Not Given Physical Exam - Constitutional Appears: Well, No Acute Distress - Head Exam Head Exam: ATRAUMATIC - Respiratory Exam Respiratory Exam: NORMAL BREATHING PATTERN - Cardiovascular Exam Additional comments: +DP/PT pulses - Expanded Lower Extremities Exam Left Ankle exam: FULL ROM, NORMAL INSPECTION (sensation intact LLE, unable to hold knee extended, no erythema) - Neurological Exam Neurological exam: Alert, Oriented x3 - Psychiatric Exam Psychiatric exam: Normal Affect - Skin Skin Exam: Dry, Intact (incision dry, healed except for small 3mm scab mid incision), Normal Color, Warm Results - Vital Signs Recent Vital Signs: Last Vital Signs Temp 98.9 F 11/02/18 08:04 Pulse 97 H 11/02/18 08:04 Resp 20 11/02/18 08:04 BP 117/71 11/02/18 08:04 Pulse Ox 98 11/02/18 08:04 - Labs Result Diagrams: 11/03/18 06:51 11/03/18 06:51 Labs: Laboratory Results - last 24 hr 11/01/18 11/01/18 11/02/18 16:24 20:56 06:09 WBC 10.4 RBC 3.93 Hgb 10.6 L Hct 32.4 L MCV 82.5 MCH 27.1 MCHC 32.8 L RDW 17.7 H Plt Count 543 H MPV 7.4 Neut % (Auto) 66.8 Lymph % (Auto) 20.4 [place] % (Auto) 11.3 H Eos % (Auto) 0.8 Baso % (Auto) 0.7 Neut # (Auto) 6.9 Lymph # (Auto) 2.1 [place] # (Auto) 1.2 H Eos # (Auto) 0.1 Baso # (Auto) 0.1 Sodium Potassium Chloride Carbon Dioxide Anion Gap BUN Creatinine Est GFR ( Amer) Est GFR (Non-Af Amer) POC Glucose (mg/dL) 166 H 181 H Random Glucose Calcium Phosphorus Magnesium Total Bilirubin AST ALT Alkaline Phosphatase Total Protein Albumin Globulin Albumin/Globulin Ratio 11/02/18 11/02/18 11/02/18 06:09 07:15 11:21 WBC RBC Hgb Hct MCV MCH MCHC RDW Plt Count MPV Neut % (Auto) Lymph % (Auto) [place] % (Auto) Eos % (Auto) Baso % (Auto) Neut # (Auto) Lymph # (Auto) Scre[place] # (Auto) Eos # (Auto) Baso # (Auto) Sodium 131 L Potassium 4.6 Chloride 93 L Carbon Dioxide 31 H Anion Gap 11 BUN 15 Creatinine 0.5 L Est GFR ( Amer) > 60 Est GFR (Non-Af Amer) > 60 POC Glucose (mg/dL) 125 H 231 H Random Glucose 112 H Calcium 9.8 Phosphorus 4.4 Magnesium 1.7 Total Bilirubin 0.3 AST 33 ALT < 6 L Alkaline Phosphatase 151 H Total Protein 8.0 Albumin 3.7 Globulin 4.3 H Albumin/Globulin Ratio 0.9 L - Impressions Impression: Patient Name / ID : LUCINDA DILLON / [id number] Exam Date : 11/02/2018 12:30:41 ( Approved ) Study Comment : Sex / Age : F / 63Y Creator : Dread Romero MD Dictator : Dread Romero MD Manager Of Network : Meeting Coordinator : Dread Romero MD Approver2 : Report Date : 11/02/2018 14:37:42 My Comment : Date of service: 11/02/2018 PROCEDURE: Left Knee Radiographs. HISTORY: Pain. COMPARISON: None. FINDINGS: ORIF patella with in situ partially threaded BONES: ORIF left patella with in situ cannulated partially threaded fixation screws through which fixation wires also extend. JOINTS: Moderate to fairly significant joint space narrowing. There are periarticular punched-out lesions. Rule out gout. JOINT EFFUSION: Small suprapatellar joint effusion felt be present. OTHER FINDINGS: The dense calcifications seen within the medial and lateral soft tissues distal thigh vascular calcifications are also present. IMPRESSION: ORIF left patella with in situ cannulated partially threaded fixation screws through which fixation wires also extend. Moderate to fairly significant joint space narrowing. There are periarticular punched-out lesions. Rule out gout. Assessment & Plan (1) Patella fracture Assessment and Plan: s/p ORIF Dr. Petit end august d/w ortho PA at [facility] had been following patient for cellulitis, which is no resolved, brace had been locked in extension but per Dr. Petit can unlock brace at this time no orthopedic intervention indicated at this time patient to f/u Dr. Petit within 1 week upon d/c xrays reviewed, patella fracture appears well aligned, hardware intact and well positioned, noted extensive heterotopic bone medial aspect of knee d/w Dr. Guerrero, no intervention on his part, to follow up with Dr. Petit upon d/c Status: Acute
[2018-11-02] MEDS: LEVODOPA PO SCH (12:23)
[2018-11-02] MEDS: CARBIDOPA PO SCH (12:23)
--- NOTE | 2018-11-02 14:41 | RAD ---
Date of service: 11/02/2018 PROCEDURE: Left Knee Radiographs. HISTORY: Pain. COMPARISON: None. FINDINGS: ORIF patella with in situ partially threaded BONES: ORIF left patella with in situ cannulated partially threaded fixation screws through which fixation wires also extend. JOINTS: Moderate to fairly significant joint space narrowing. There are periarticular punched-out lesions. Rule out gout. JOINT EFFUSION: Small suprapatellar joint effusion felt be present. OTHER FINDINGS: The dense calcifications seen within the medial and lateral soft tissues distal thigh vascular calcifications are also present. IMPRESSION: ORIF left patella with in situ cannulated partially threaded fixation screws through which fixation wires also extend. Moderate to fairly significant joint space narrowing. There are periarticular punched-out lesions. Rule out gout.
[2018-11-03 07:03] LABS: BASO # 0.1 K/uL (0.0-0.2); BASO % 1.2 % (0.0-2.0); EOS # 0.1 K/uL (0.0-0.7); EOS % 0.8 % (0.0-4.0); HEMOGLOBIN 10.7 g/dL (11.0-16.0); LYMPH # 2.2 K/uL (1.0-4.3); LYMPH % 21.5 % (20.0-40.0); MEAN CELL VOLUME 82.2 fL (81.0-99.0); MEAN CORPUSCULAR HEMOGLOBIN 26.2 pg (27.0-31.0); MEAN CORPUSCULAR HGB CONC 31.9 g/dL (33.0-37.0); MEAN PLATELET VOLUME 7.5 fL (7.2-11.7); MONO % 10.1 % (0.0-10.0); NEUT # 6.7 K/uL (1.8-7.0); NEUT % 66.4 % (50.0-75.0); RBC 4.08 Mil/uL (3.80-5.20); RED CELL DISTRIBUTION WIDTH 17.6 % (11.5-14.5); WHITE BLOOD COUNT 10.2 K/uL (4.8-10.8)
[2018-11-03 07:19] LABS: ALB/GLOB RATIO 0.9 (1.0-2.1); ALBUMIN 3.8 g/dL (3.5-5.0); ALT/SGPT < 6 U/L (9-52); AST/SGOT 19 U/L (14-36); BLOOD UREA NITROGEN 20 mg/dL (7-17); GFR NON-AFRICAN AMERICAN > 60
[2018-11-03] MEDS: (Novolin R) Insulin Human Regular 100 units/ml vial SC SCH ×3 (07:47→17:13)
[2018-11-03] MEDS: Carbidopa/Levodopa 25/100 CR PO SCH (07:55)
[2018-11-03] MEDS: Pantoprazole 40 mg EC Tab PO SCH (09:06)
[2018-11-03] MEDS: Enoxaparin 40 mg Syringe SC SCH (09:07)
[2018-11-03] MEDS: Megestrol Acetate 40 mg/ml Cup PO SCH (09:10)
[2018-11-03] MEDS: Silver Sulfadiazine 1% Cream (20 gm) TOP SCH ×2 (09:16→17:29)
[2018-11-03] MEDS: Clotrimazole 1% Cream(30 gm) TOP SCH ×2 (09:17→17:30)
[2018-11-03] MEDS: ROPINIROLE 2 MG PO SCH (09:22)
--- NOTE | 2018-11-03 09:35 | CP.PCM.PN ---
Subjective - Date & Time of Evaluation Date of Evaluation: 11/03/18 Time of Evaluation: 11:00 - Subjective Subjective: PGY1 Medicine progress note for Dr. Goodwin Patient seen and examined at bedside. Pt reports that her knee pain feels better. Patient denies fevers, chills, chest pain, shortness of breath, abdominal pain, nausea, vomiting, constipation, or diarrhea, numbness or tingling, headaches, dizziness, seizure activity, syncope. No BM yet, passing gas. Objective - Vital Signs/Intake and Output Vital Signs (last 24 hours): Temp Pulse Resp BP Pulse Ox 97.9 F 105 H 18 128/78 96 11/03/18 08:20 11/03/18 08:20 11/03/18 08:20 11/03/18 08:20 11/03/18 08:20 Intake and Output: 11/03/18 11/03/18 06:59 18:59 Intake Total 300 200 Balance 300 200 - Medications Medications: Current Medications Acetaminophen (Tylenol 325mg Tab) 650 mg PO Q4H PRN PRN Reason: Pain, Mild (1-3) Last Admin: 11/03/18 08:24 Dose: 650 mg Amantadine HCl (Amantadine 100 Mg Cap) 100 mg PO BID [facility] Last Admin: 11/03/18 09:10 Dose: 100 mg Amlodipine Besylate (Norvasc) 2.5 mg PO DAILY [facility] Last Admin: 11/03/18 09:06 Dose: 2.5 mg Carbidopa/Levodopa (Sinemet) 1 tab PO BID [facility] Last Admin: 11/03/18 09:16 Dose: 1 tab Carbidopa/Levodopa (Sinemet) 1 tab PO DAILY@1200 [facility] Last Admin: 11/02/18 12:22 Dose: 1 tab Carbidopa/Levodopa (Sinemet) 1 tab PO QNOON [facility] Last Admin: 11/02/18 12:23 Dose: 1 tab Carbidopa/Levodopa (Sinemet Cr) 2 tab PO 0800 [facility] Last Admin: 11/03/18 07:55 Dose: 2 tab Clotrimazole (Lotrimin 1%) 0 gm TOP BID [facility] Last Admin: 11/03/18 09:17 Dose: 1 applic Dextrose (Dextrose 50% Inj) 0 ml IV STAT PRN; Protocol PRN Reason: Hypoglycemia Protocol Dextrose (Glutose 15) 0 gm PO ONCE PRN; Protocol PRN Reason: Hypoglycemia Protocol Docusate Sodium (Colace) 100 mg PO TID [facility] Last Admin: 11/03/18 09:07 Dose: 100 mg Enoxaparin Sodium (Lovenox) 40 mg SC DAILY [facility] Last Admin: 11/03/18 09:07 Dose: 40 mg Ferrous Sulfate (Feosol) 325 mg PO DAILY [facility] Last Admin: 11/03/18 09:06 Dose: 325 mg Glucagon (Glucagen Diagnostic Kit) 0 mg IM STAT PRN; Protocol PRN Reason: Hypoglycemia Protocol Home Med (Patient's Own Medication) 1 tab PO DAILY [facility] Last Admin: 11/03/18 09:22 Dose: 1 tab Dextrose (Dextrose 5% In Water 1000 Ml) 1,000 mls @ 0 mls/hr IV .Q0M PRN; Protocol PRN Reason: Hypoglycemia Protocol Insulin Human Regular (Novolin R) 0 unit SC ACHS [facility]; Protocol Last Admin: 11/03/18 07:47 Dose: Not Given Megestrol Acetate (Megace) 400 mg PO DAILY [facility] Last Admin: 11/03/18 09:10 Dose: 400 mg Metformin HCl (Glucophage) 500 mg PO DAILY [facility] Last Admin: 11/03/18 09:06 Dose: 500 mg Pantoprazole Sodium (Protonix Ec Tab) 40 mg PO DAILY [facility] Last Admin: 11/03/18 09:06 Dose: 40 mg Rosuvastatin Calcium (Crestor) 5 mg PO HS [facility] Last Admin: 11/02/18 21:08 Dose: 5 mg Silver Sulfadiazine (Silvadene 1% 20 Gm) 0 ea TOP BID [facility] Last Admin: 11/03/18 09:16 Dose: 1 applic - Labs Labs: 11/03/18 06:51 11/03/18 06:51 PT 14.4 SECONDS (9.7-12.2) H 10/24/18 07:15 INR 1.3 10/24/18 07:15 APTT 37 SECONDS (21-34) H 10/24/18 07:15 - Additional Findings Additional findings: - Constitutional Appears: Non-toxic, No Acute Distress, Chronically ill - Head Exam Head Exam: NORMAL INSPECTION, NORMOCEPHALIC - Eye Exam Eye Exam: EOMI, Normal appearance. absent: Nystagmus, Scleral icterus - ENT Exam ENT Exam: Mucous Membranes moist - Respiratory Exam Respiratory Exam: Clear to Auscultation Bilateral, NORMAL BREATHING PATTERN. absent: Rales, Rhonchi, Wheezes - Cardiovascular Exam Cardiovascular Exam: REGULAR RHYTHM, +S1, +S2. absent: Tachycardia - GI/Abdominal Exam GI & Abdominal Exam: Normal Bowel Sounds, Soft. absent: Diminished Bowel Sounds, Distended, Firm, Guarding, Tenderness - Extremities Exam Extremities exam: Positive for: normal inspection. Negative for: calf tenderness, pedal edema Additional comments: Left knee there is immobilizer with scar on medial part of knee; clean incision, no erythema, blood or drainage noted. Nontender on palpation, but with swelling, minimal erythema, some warmth. Some pain on knee extension. - Neurological Exam Neurological exam: Alert, Oriented x3, resting tremor b/l, tardative dyskinesia, cogwheel rigidity. - Psychiatric Exam Psychiatric exam: Flat affect, Normal Mood - Skin Skin Exam: Dry, Intact. Deep brain stimulator (right upper chest wall) wires palpated on right posterior neck: nontender, no signs of infection Assessment and Plan - Assessment and Plan (Free Text) Assessment: Patient is a 63 yo female w/ PMH Parkinson's disease, mood disorder, DM2, HLD, and HTN sent from [facility] [place] for hyponatremia. Endorsed weight loss and noted to be anemia. Workup initiated for possible malignancy, but results have been normal. Plan: Electrolyte Disturbances Hyponatremia- resolved. Likely hypovolemic hyponatremia. 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 Na is stable and WNL. S/p Tolvaptan 15 mg PO on admission. Continue to replete electrolytes as needed Repleted Mg 1.4 today with 2g IVPB. Will start Mg Ox 400 mg PO daily for 5 days. Nephro consulted, Dr. Nunez. Recommendations appreciated Depakote sprinkles discontinued 10/24/18 Weight Loss/Failure to thrive 80 lb weight loss as per pt/ over [address] w/o (10/21/18) : age related degenerative changes are identified as well as neural stimulator the right basal ganglia as discussed above. No intracranial hemorrhage, mass effect or cortical edema pattern identified. CT Chest, Abd, Pelvis with po and IV contrast (10/22/18): 1. no pulmonary mass or significant lymphadenopathy. mild cardiomegaly. potential pulmonary artery hypertension 2. possible constipation 3. possible antritis or mass affecting pylorus. gi consult advised 4. prior hysterectomy GI, Dr. Bruno consulted, help appreciated. EGD and Colonoscopy unimpressive for masses, see below. Serum immunofixation is positive, [place]/Lambda is normal. Megace 400 mg PO BID for appetite stimulation Anemia of chronic disease or iron deficiency anemia with acute phase reactant elevation H/H is stable Iron <10, TIBC normal (276), %sat 3.62. Ferritin high (452) may be due to acute phase reactant No indication for transfusion at this time Upper endoscopy was well tolerated 10/24/18 Gastritis: biopsied. Small hiatal hernia. No mass. Normal duodenum. Protonix 40 mg PO daily Lower endoscopy to the cecum was well tolerated 10/26/18 Diverticulosis in the sigmoid colon. Nonbleeding internal hemorrhoids. Otherwise normal. No repeat colonoscopy due to age. Parkinson's disease Of note, pt has deep brain stimulator implanted for parkinson's disease implanted in June 2018. Dr. Ramirez Carbidopa/Levodopa 25-100mg 1 tab at 10am, 1.5 tabs at 12pm and 1 tab at 6 pm Carbidopa/Levodopa 50-200mg 1 tab po daily at 8am Amantadine 100mg po bid Ropinirole 2mg (pt's own) po daily Hx of Mood Disorder as per [facility] rehab notes Pt states that the depakote was started at rehab, and not by her PMD. Case discussed with PMD (Dr. Ian Ugarte), who reports pt has no history of seizures, mood disorder, or prescribing the mediation. 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 Bobby Petit as per pt Orthopedic surgery, Dr. Guerrero, consulted. Recommendations appreciated. Pt has resolved cellulitis. Dr. Petit can unlock brace at this time No orthopedic intervention indicated at this time Left knee x-ray shows s/p patellar repair with hardware, possible gout. Pt started on colchicine 0.6 mg PO BID. Tylenol PRN for pain Knee immobilizer in place PT HTN Amlodipine 10mg po daily Well controlled Constipation Colace 100mg po TID Head lice, resolved Identification of body louse on path Pt reports symptoms resolved S/p three permethin treatments S/p ivermectin x 1 treatment Pt has completed treatment for lice Contact precautions discontinued Prophylaxis SCDs, Heparin 5000 u sc q8 Prontonix 40 mg PO daily for GI ppx Dispo: Pending RAMIN placement. Case discussed with Dr. Goodwin
[2018-11-03] MEDS: Magnesium Sulfate 1 gm in D5W 1 GM/100 ML BAG IVPB SCH ×2 (10:05→10:35)
[2018-11-03] MEDS: CARBIDOPA PO SCH (11:44)
[2018-11-03] MEDS: LEVODOPA PO SCH (11:44)
--- NOTE | 2018-11-03 13:08 | CP.PCM.PN ---
Subjective - Date & Time of Evaluation Date of Evaluation: 11/03/18 Time of Evaluation: 13:06 - Subjective Subjective: Patient states her knee feels better today. She denies any new complaints. Objective - Vital Signs/Intake and Output Vital Signs (last 24 hours): Temp Pulse Resp BP Pulse Ox 97.9 F 105 H 18 128/78 96 11/03/18 08:20 11/03/18 08:20 11/03/18 08:20 11/03/18 08:20 11/03/18 08:20 Intake and Output: 11/03/18 11/03/18 06:59 18:59 Intake Total 300 200 Balance 300 200 - Medications Medications: Current Medications Acetaminophen (Tylenol 325mg Tab) 650 mg PO Q4H PRN PRN Reason: Pain, Mild (1-3) Last Admin: 11/03/18 08:24 Dose: 650 mg Amantadine HCl (Amantadine 100 Mg Cap) 100 mg PO BID [facility] Last Admin: 11/03/18 09:10 Dose: 100 mg Amlodipine Besylate (Norvasc) 2.5 mg PO DAILY [facility] Last Admin: 11/03/18 09:06 Dose: 2.5 mg Carbidopa/Levodopa (Sinemet) 1 tab PO BID [facility] Last Admin: 11/03/18 09:16 Dose: 1 tab Carbidopa/Levodopa (Sinemet) 1 tab PO DAILY@1200 [facility] Last Admin: 11/03/18 11:40 Dose: 1 tab Carbidopa/Levodopa (Sinemet) 1 tab PO QNOON [facility] Last Admin: 11/03/18 11:44 Dose: 1 tab Carbidopa/Levodopa (Sinemet Cr) 2 tab PO 0800 [facility] Last Admin: 11/03/18 07:55 Dose: 2 tab Clotrimazole (Lotrimin 1%) 0 gm TOP BID [facility] Last Admin: 11/03/18 09:17 Dose: 1 applic Colchicine (Colocrys) 0.6 mg PO BID [facility] Dextrose (Dextrose 50% Inj) 0 ml IV STAT PRN; Protocol PRN Reason: Hypoglycemia Protocol Dextrose (Glutose 15) 0 gm PO ONCE PRN; Protocol PRN Reason: Hypoglycemia Protocol Docusate Sodium (Colace) 100 mg PO TID [facility] Last Admin: 11/03/18 09:07 Dose: 100 mg Enoxaparin Sodium (Lovenox) 40 mg SC DAILY [facility] Last Admin: 11/03/18 09:07 Dose: 40 mg Ferrous Sulfate (Feosol) 325 mg PO DAILY [facility] Last Admin: 11/03/18 09:06 Dose: 325 mg Glucagon (Glucagen Diagnostic Kit) 0 mg IM STAT PRN; Protocol PRN Reason: Hypoglycemia Protocol Home Med (Patient's Own Medication) 1 tab PO DAILY [facility] Last Admin: 11/03/18 09:22 Dose: 1 tab Dextrose (Dextrose 5% In Water 1000 Ml) 1,000 mls @ 0 mls/hr IV .Q0M PRN; Protocol PRN Reason: Hypoglycemia Protocol Insulin Human Regular (Novolin R) 0 unit SC ACHS [facility]; Protocol Last Admin: 11/03/18 11:57 Dose: 2 units Magnesium Oxide (Mag-Ox) 400 mg PO DAILY [facility] Stop: 11/08/18 10:01 Megestrol Acetate (Megace) 400 mg PO DAILY [facility] Last Admin: 11/03/18 09:10 Dose: 400 mg Metformin HCl (Glucophage) 500 mg PO DAILY [facility] Last Admin: 11/03/18 09:06 Dose: 500 mg Pantoprazole Sodium (Protonix Ec Tab) 40 mg PO DAILY [facility] Last Admin: 11/03/18 09:06 Dose: 40 mg Rosuvastatin Calcium (Crestor) 5 mg PO HS [facility] Last Admin: 11/02/18 21:08 Dose: 5 mg Silver Sulfadiazine (Silvadene 1% 20 Gm) 0 ea TOP BID [facility] Last Admin: 11/03/18 09:16 Dose: 1 applic - Labs Labs: 11/03/18 06:51 11/03/18 06:51 PT 14.4 SECONDS (9.7-12.2) H 10/24/18 07:15 INR 1.3 10/24/18 07:15 APTT 37 SECONDS (21-34) H 10/24/18 07:15 - Constitutional Appears: Well, No Acute Distress - Skin Skin Exam: Dry, Intact, Normal Color, Warm Additional comments: tender to anterior knee on lateral side, incision intact, dry, mildly warm, no cellulitis appreciated Assessment and Plan (1) Patella fracture Assessment & Plan: s/p ORIF Dr. Petit end august d/w ortho PA [facility] yesterday had been following patient for cellulitis, which has resolved (to clarify, yesterday also noted no evidence of cellulitis), brace had been locked in extension to rest soft tissues but per Dr. Petit can unlock brace at this time no orthopedic intervention indicated at this time patient to f/u Dr. Petit within 1 week upon d/c xrays reviewed, patella fracture appears well aligned, hardware intact and well positioned, noted extensive heterotopic bone medial aspect of knee d/w Dr. Guerrero, no intervention on his part, to follow up with Dr. Petit upon d/c Status: Acute
[2018-11-03 16:47] VITALS: BP 129/69; PULSE 115; RESP 20; TEMP 98.9; O2SAT 95
[2018-11-04] MEDS ORDERED: Magnesium Oxide 400 mg Tab UD PO SCH (10:00)
[2018-11-04] MEDS ORDERED: Divalproex 125 mg Sprinkle Capsule PO SCH (18:00)
[2018-11-11] MEDS ORDERED: Divalproex 125 mg Sprinkle Capsule PO SCH (18:00)
== END 2018-11-03 22:53 | DRG 643 ==
LOC: C.ER 21:11 → C.3T 22:15 → OBSVTOIN 10-22 16:23 → C.3T 10-24 09:41
PROVIDERS: ADMIT Internal Medicine; ATTEND Internal Medicine
PROC: 0DB68ZX Excision of Stomach, Via Natural or Artificial Opening Endoscopic, Diagnostic (ICD-10-PCS; principal; 2018-10-24 08:30)
PROC: 0DJD8ZZ Inspection of Lower Intestinal Tract, Via Natural or Artificial Opening Endoscopic (ICD-10-PCS; 2018-10-25)
PROC: 0DJD8ZZ Inspection of Lower Intestinal Tract, Via Natural or Artificial Opening Endoscopic (ICD-10-PCS; 2018-10-26)
DX: E22.2 Syndrome of inappropriate secretion of antidiuretic hormone (principal); E86.0 Dehydration; R62.7 Adult failure to thrive; E86.1 Hypovolemia; E87.8 Other disorders of electrolyte and fluid balance, not elsewhere classified; D50.9 Iron deficiency anemia, unspecified; L89.313 Pressure ulcer of right buttock, stage 3; E11.65 Type 2 diabetes mellitus with hyperglycemia; E83.42 Hypomagnesemia; G20 Parkinson's disease; I10 Essential (primary) hypertension; E87.6 Hypokalemia; D63.8 Anemia in other chronic diseases classified elsewhere; K57.30 Diverticulosis of large intestine without perforation or abscess without bleeding; K29.60 Other gastritis without bleeding; K44.9 Diaphragmatic hernia without obstruction or gangrene; K64.1 Second degree hemorrhoids; L89.152 Pressure ulcer of sacral region, stage 2; B85.0 Pediculosis due to Pediculus humanus capitis; B85.1 Pediculosis due to Pediculus humanus corporis; E78.5 Hyperlipidemia, unspecified; R53.82 Chronic fatigue, unspecified; K59.00 Constipation, unspecified; F39 Unspecified mood [affective] disorder; S82.002D Unspecified fracture of left patella, subsequent encounter for closed fracture with routine healing; Z68.21 Body mass index [BMI] 21.0-21.9, adult; Z79.84 Long term (current) use of oral hypoglycemic drugs; Z90.710 Acquired absence of both cervix and uterus; Z80.3 Family history of malignant neoplasm of breast; Z80.1 Family history of malignant neoplasm of trachea, bronchus and lung